=== PATIENT | female | born 1950 | race African-American/Black ===

== ENCOUNTER 2020-02-13 21:30 | Inpatient (IN) | payer MEDICARE, MEDICAID ==
[~2020-02-13] VITALS: Ht 162.6 cm; Wt 56.7 kg
[~2020-02-13 21:30] MED LIST: ASPIRIN81 MG ORAL; CALCIUM500 M3 PO; LIPITOR10 MG ORAL; VITAMIN C500 M1 ORAL; ZESTRIL10 MG ORAL
[2020-02-13 21:37] VITALS: BP 111/75
[2020-02-13] MEDS ORDERED: Solu-MEDROL 125mg Inj IVP ONE (21:45)
[2020-02-13] MEDS: Albuterol ud Inhalation HHN SCH ×2 (22:04→22:11)
[2020-02-13] MEDS: Ipratropium 0.02% Inh Soln 2.5ml UD HHN SCH ×2 (22:04→22:11)
[2020-02-13 22:14] LABS: HEMATOCRIT 42.4 % (37.0-47.0); HEMOGLOBIN 13.3 G/DL (12.0-16.0); MEAN CORPUSCULAR VOLUME 97 FL (80-99); PLATELET COUNT 166 K/UL (150-450); RED BLOOD COUNT 4.35 M/UL (4.20-5.40); RED CELL DISTRIBUTION WIDTH 14.4 % (11.6-14.8); WHITE BLOOD COUNT 7.9 K/UL (4.8-10.8)
[2020-02-13 22:16] LABS: ANION GAP 17 mmol/L (5-15); BLOOD UREA NITROGEN 13 mg/dL (7-18); CARBON DIOXIDE 21 MMOL/L (21-32); CHLORIDE 106 MMOL/L (98-107); CREATININE 1.3 MG/DL (0.55-1.30); POTASSIUM 3.7 MMOL/L (3.5-5.1); SODIUM 144 MMOL/L (136-145)
[2020-02-13 22:29] LABS: ALANINE AMINOTRANSFERASE 45 U/L (12-78); ALBUMIN 3.3 G/DL (3.4-5.0); ALBUMIN/GLOBULIN RATIO 0.9 (1.0-2.7); ALKALINE PHOSPHATASE 103 U/L (46-116); ASPARTATE AMINO TRANSFERASE 102 U/L (15-37); BILIRUBIN,TOTAL 0.2 MG/DL (0.2-1.0)
--- NOTE | 2020-02-13 22:54 | Diagnostic Imaging Report ---
EXAM: XR Chest, 1 View CLINICAL HISTORY: SOB TECHNIQUE: Frontal view of the chest. COMPARISON: No relevant prior studies available. FINDINGS: Study limited to single portable AP chest radiograph. At least mild cardiomegaly. There is tortuosity/ectasia of the thoracic aorta. Overlying artifact in the right costophrenic angle region. Negative for focal consolidation, pneumothorax or pleural fluid collections. Recommend upright PA and lateral views of the chest when clinically feasible.
[2020-02-13] MEDS ORDERED: cefTRIAXone 1 GM in NS 55 ML IVPB ONE (23:00)
[2020-02-13] MEDS ORDERED: Azithromycin 500 MG in NS 275 ML IV ONE (23:00)
[2020-02-13 23:29] LABS: BILIRUBIN, URINE NEGATIVE (NEGATIVE); GLUCOSE, URINE (UA) 2+ (NEGATIVE); KETONES,URINE NEGATIVE (NEGATIVE); NITRITE,URINE NEGATIVE (NEGATIVE); PH,URINE 6.5 (4.5-8.0); PROTEIN,URINE 2+ (NEGATIVE); UROBILINOGEN,URINE NORMAL MG/DL (0.0-1.0)
[2020-02-13 23:36] VITALS: BP 125/87
[2020-02-13 23:44] LABS: APPEARANCE,URINE SLIGHTLY CLOUDY; COLOR,URINE YELLOW; LEUKOCYTE ESTERASE ,URINE 1+ (NEGATIVE)
[2020-02-14] VITALS (7 sets, daily range): BP systolic 101–146; BP diastolic 58–97
--- NOTE | 2020-02-14 01:39 | Emergency Room Report ---
History of Present Illness General Chief Complaint: Dyspnea/Respdistress Source: Patient Present Illness HPI 69-year-old female presents ED for evaluation of respiratory distress. Brought in by EMS from home. Short of breath. Tripoding. Labored breathing. Started on CPAP. EMS stated that house smelled like smoke. Denies fevers or chills. Denies cough. Denies chest pain. Symptoms started today. No other aggravating relieving factors. Denies any other associated symptoms COVID-19 risk:Travel to affect: No Allergies: Coded Allergies: No Known Allergies (Unverified , 01/22/15) Patient History Past Medical History: none Past Surgical History: none Pertinent Family History: none Social History: Reports: smoking; Denies: alcohol use, drug use Now: No Immunizations: UTD Reviewed Nursing Documentation: PMH: Agreed; PSxH: Agreed Nursing Documentation-PMH Past Medical History: Deferred Hx Cardiac Problems: No Hx Cancer: No Hx Gastrointestinal Problems: No Hx Neurological Problems: No Review of Systems All Other Systems: negative except mentioned in HPI Physical Exam Vital Signs Date Time Temp Pulse Resp B/P (MAP) Pulse Ox O2 Delivery O2 Flow Rate FiO2 02/13/20 21:31 151 26 111/75 (87) 100 Bi-pap 15.0 02/13/20 21:37 98.0 02/13/20 22:37 35 Sp02 EP Interpretation: reviewed, normal General Appearance: alert, GCS 15, non-toxic, moderate distress Head: normocephalic, atraumatic Eyes: bilateral eye normal inspection, bilateral eye PERRL ENT: hearing grossly normal, normal pharynx, no angioedema, normal voice Neck: full range of motion, supple/symm/no masses Respiratory: chest non-tender, decreased breath sounds, speaking full sentences , wheezing Cardiovascular #1: no edema, tachycardia Cardiovascular #2: 2+ carotid (R), 2+ carotid (L), 2+ radial (R), 2+ radial (L) , 2+ dorsalis pedis (R), 2+ dorsalis pedis (L) Gastrointestinal: normal bowel sounds, non tender, soft, non-distended, no guarding, no rebound Rectal: deferred Genitourinary: normal inspection, no CVA tenderness Musculoskeletal: back normal, normal range of motion, gait/station normal, non- tender Neurologic: alert, motor strength/tone normal, oriented x3, sensory intact, responsive, speech normal Psychiatric: judgement/insight normal, memory normal, mood/affect normal, no suicidal/homicidal ideation Reflexes: 3+ bicep (R), 3+ bicep (L), 3+ tricep (R), 3+ tricep (L), 3+ knee (R) , 3+ knee (L) Skin: other - see nursing skin notes Lymphatic: no adenopathy Procedures Critical Care Time Critical Care Time i. I feel this is a highly complex case requiring extensive working including EKG/Rhythm strip, Xray/CT/US, Blood/urine lab work, repeat exams while in ED, and administration of strong opiates/narcotics for pain control, admission to hospital or close patient follow up. Total time: 60 min bedside evaluation and treatment excludes procedures (EKG). Reason for critical care: respiratory distress Possible complications: hypotension, hypertension, UT, shock, arrhythmias, metabolic acidosis, end organ damage, respiratory failure. Interventions: labs, EKG, CXR, IVFS, BIPAP, nebs, ABG, abx, aspirin Course: Patient brought in with shortness of breath. On CPAP. Reduced breath sounds and wheezing. Started on BiPAP with nebulizer treatments. ABG shows no significant hypercapnia or hypoxia. Lactic 8. No leukocytosis. No fever. Troponin indeterminate. Given 30 cc/kg fluid bolus. Given broad-spectrum antibiotics. Given aspirin. Tachycardia resolving. Consultations: nursing staff, EMS, family Performed by: Dr Howell Tolerated well condition = serious j. because of unstable vital signs this patient had a condition that could potentially threaten life or limb. I feel this is a critical patient who required my full attention while patient was considered critical. Total Critical Care Time excluding procedures was greater than 60 minutes Medical Decision Making Diagnostic Impression: Primary Impression: Respiratory distress Additional Impression: COPD exacerbation ER Course Hospital Course 69-year-old F presenting to ED with SOB. Differential diagnoses include: Pneumonia, CHF exacerbation, pneumothorax, fluid overload Clinical course Patient placed on stretcher. On compliance monitor with tachycardia. patient started on BIPAP. After initial history and physical, I ordered nebulizer treatments. I ordered labs, IV fluids, EKG, chest x-ray, blood cultures, UA. Labs - no leukocytosis noted, hemoglobin/hematocrit stable, electrolytes okay, lactate 8, trop 0.233, BNP elevted CXR - hyperinflated lungs. no infiltrates EKG - sinus tachycardia no acute ischemic changes interpreted by me ABG shows no significant hypercapnia or hypoxia or acidosis Given Solu-Medrol. Given 30 cc/kg fluid bolus. Given broad-spectrum antibiotics. Given aspirin. Case discussed with Dr. Musa (per Dr Swanson) and he agreed to the patient to his service for further care and support I feel this is a highly complex case requiring extensive working including EKG/ Rhythm strip, Xray/CT/US, Blood/urine lab work, repeat exams while in ED, and administration of strong opiates/narcotics for pain control, admission to hospital or close patient follow up. Diagnosis - COPD exacerbation, respiratory distress Patient admitted to SDU in serious condition Labs Test 02/13/20 21:30 02/13/20 21:40 02/13/20 22:56 02/13/20 23:01 Arterial Blood pH 7.297 (7.350-7.450) Arterial Blood Partial Pressure CO2 41.2 mmHg (35.0-45.0) Arterial Blood Partial Pressure O2 260.9 mmHg (75.0-100.0) Arterial Blood HCO3 19.7 mmol/L (22.0-26.0) Arterial Blood Oxygen Saturation 99.3 % (95-100) Arterial Blood Base Excess -6.4 (-2-2) Rishabh Test Positive White Blood Count 7.9 K/UL (4.8-10.8) Red Blood Count 4.35 M/UL (4.20-5.40) Hemoglobin 13.3 G/DL (12.0-16.0) Hematocrit 42.4 % (37.0-47.0) Mean Corpuscular Volume 97 FL (80-99) Mean Corpuscular Hemoglobin 30.5 PG (27.0-31.0) Mean Corpuscular Hemoglobin Concent 31.3 G/DL (32.0-36.0) Red Cell Distribution Width 14.4 % (11.6-14.8) Platelet Count 166 K/UL (150-450) Mean Platelet Volume 9.3 FL (6.5-10.1) Neutrophils (%) (Auto) % (45.0-75.0) Lymphocytes (%) (Auto) % (20.0-45.0) Monocytes (%) (Auto) % (1.0-10.0) Eosinophils (%) (Auto) % (0.0-3.0) Basophils (%) (Auto) % (0.0-2.0) Differential Total Cells Counted 100 Neutrophils % (Manual) 34 % (45-75) Lymphocytes % (Manual) 60 % (20-45) Monocytes % (Manual) 5 % (1-10) Eosinophils % (Manual) 1 % (0-3) Basophils % (Manual) 0 % (0-2) Band Neutrophils 0 % (0-8) Platelet Estimate Adequate Platelet Morphology Normal Anisocytosis 1+ Macrocytosis 1+ Sodium Level 144 MMOL/L (136-145) Potassium Level 3.7 MMOL/L (3.5-5.1) Chloride Level 106 MMOL/L (98-107) Carbon Dioxide Level 21 MMOL/L (21-32) Anion Gap 17 mmol/L (5-15) Blood Urea Nitrogen 13 mg/dL (7-18) Creatinine 1.3 MG/DL (0.55-1.30) Estimat Glomerular Filtration Rate 49.3 mL/min (>60) Glucose Level 404 MG/DL (74-106) Lactic Acid Level 8.00 mmol/L (0.4-2.0) 3.40 mmol/L (0.66-2.22) Calcium Level 9.0 MG/DL (8.5-10.1) Total Bilirubin 0.2 MG/DL (0.2-1.0) Aspartate Amino Transf (AST/SGOT) 102 U/L (15-37) Alanine Aminotransferase (ALT/SGPT) 45 U/L (12-78) Alkaline Phosphatase 103 U/L (46-116) Troponin I 0.233 ng/mL (0.000-0.056) Pro-B-Type Natriuretic Peptide 9097 pg/mL (0-125) Total Protein 7.0 G/DL (6.4-8.2) Albumin 3.3 G/DL (3.4-5.0) Globulin 3.7 g/dL Albumin/Globulin Ratio 0.9 (1.0-2.7) Urine Color Yellow Urine Appearance Slightly cloudy Urine pH 6.5 (4.5-8.0) Urine Specific [place] 1.015 (1.005-1.035) Urine Protein 2+ (NEGATIVE) Urine Glucose (UA) 2+ (NEGATIVE) Urine Ketones Negative (NEGATIVE) Urine Blood 1+ (NEGATIVE) Urine Nitrite Negative (NEGATIVE) Urine Bilirubin Negative (NEGATIVE) Urine Urobilinogen Normal MG/DL (0.0-1.0) Urine Leukocyte Esterase 1+ (NEGATIVE) Urine RBC 2-4 /HPF (0 - 2) Urine WBC 2-4 /HPF (0 - 2) Urine Squamous Epithelial Cells Moderate /LPF (NONE/OCC) Urine Bacteria Many /HPF (NONE) EKG Diagnostic Results Rate: tachycardiac Rhythm: NSR ST Segments: no acute changes ASA given to the pt in ED: Yes Rhythm Strip Diag. Results EP Interpretation: yes Rhythm: NSR, no PVC's, no ectopy Chest X-Ray Diagnostic Results Chest X-Ray Diagnostic Results : Chest X-Ray Ordered: Yes # of Views/Limited/Complete: 1 View Indication: Shortness of Breath EP Interpretation: Yes Interpretation: no consolidation, no effusion, no pneumothorax, no acute cardiopulmonary disease, other - cardiomegaly Impression: Other - hyperinflated lungs Electronically Signed by: Electronically signed by Fritz Howell MD Last Vital Signs Date Time Temp Pulse Resp B/P (MAP) Pulse Ox O2 Delivery O2 Flow Rate FiO2 02/13/20 22:37 89 25 100 35 02/13/20 21:37 98.0 111/75 Bi-pap 02/13/20 21:37 15.0 Status: improved Disposition: ADMITTED INPATIENT Condition: Serious Referrals: NON PHYSICIAN (PCP) Frizt Howell MD Feb 14, 2020 01:39
[2020-02-14] MEDS ORDERED: Azithromycin 500 MG in D5W 275 ML IVPB ONE (02:30)
[2020-02-14 06:31] LABS: HEMATOCRIT 41.2 % (37.0-47.0); HEMOGLOBIN 13.6 G/DL (12.0-16.0); MEAN CORPUSCULAR VOLUME 93 FL (80-99); PLATELET COUNT 145 K/UL (150-450); RED BLOOD COUNT 4.42 M/UL (4.20-5.40); WHITE BLOOD COUNT 8.6 K/UL (4.8-10.8)
[2020-02-14 06:55] LABS: ALANINE AMINOTRANSFERASE 48 U/L (12-78); ALBUMIN 3.2 G/DL (3.4-5.0); ALBUMIN/GLOBULIN RATIO 0.9 (1.0-2.7); ALKALINE PHOSPHATASE 85 U/L (46-116); ANION GAP 15 mmol/L (5-15); ASPARTATE AMINO TRANSFERASE 70 U/L (15-37); BILIRUBIN,TOTAL 0.3 MG/DL (0.2-1.0); BLOOD UREA NITROGEN 11 mg/dL (7-18); CALCIUM 8.3 MG/DL (8.5-10.1); CARBON DIOXIDE 20 MMOL/L (21-32); CHLORIDE 111 MMOL/L (98-107); CREATININE 0.8 MG/DL (0.55-1.30); POTASSIUM 4.2 MMOL/L (3.5-5.1); SODIUM 146 MMOL/L (136-145)
[2020-02-14] MEDS ORDERED: Heparin 5000 units/ml inj SUBQ SCH (09:00)
[2020-02-14] MEDS: Ascorbic Acid 500mg tab ORAL SCH (09:13)
[2020-02-14] MEDS: Aspirin Baby 81mg ORAL SCH (09:13)
[2020-02-14] MEDS: Lisinopril 10mg tab ORAL SCH (09:13)
--- NOTE | 2020-02-14 11:37 | Consultation ---
History of Present Illness General Chief Complaint: Dyspnea/Respdistress Present Illness HPI 69 year old female, current smoker (since age 16), no prior hx of lung disease, has hx of HTN, presenting with 1 day of acute SOB, wheezing that ocurred last night. denies any sick contacts, fever, chills, chest pain, n/v, abdominal pain. denies any prior similar episodes. reports she is "cutting down", now smoking 3-5 cigs per day only. Allergies: Coded Allergies: No Known Allergies (Unverified , 01/22/15) Medication History Scheduled Ascorbic Acid* (Vitamin C*), 500 MG ORAL DAILY, (Reported) Aspirin* (Aspirin*), 81 MG ORAL DAILY Atorvastatin Calcium* (Lipitor*), 10 MG ORAL BEDTIME Calcium Carbonate (Calcium), 1,500 MG PO DAILY, (Reported) Lisinopril* (Zestril*), 10 MG ORAL DAILY Patient History Healthcare decision maker Resuscitation status Full Code Advanced Directive on File Physical Exam General Appearance: WD/WN, no apparent distress HEENT: normocephalic, atraumatic Neck: non-tender Respiratory/Chest: expiratory wheezing Cardiovascular/Chest: normal peripheral pulses, normal rate, regular rhythm Abdomen: non tender, soft, no organomegaly Neurologic: alert, oriented x 3 Last 24 Hour Vital Signs Date Time Temp Pulse Resp B/P (MAP) Pulse Ox O2 Delivery O2 Flow Rate FiO2 02/14/20 09:13 134/84 02/14/20 08:00 98.0 100 21 134/84 (101) 98 02/14/20 08:00 35 02/14/20 08:00 Nasal Cannula 2.0 02/14/20 07:42 99 02/14/20 07:15 99 02/14/20 07:05 99 Nasal Cannula 2.0 28 02/14/20 04:48 71 27 100 30 02/14/20 04:00 97.8 110 20 111/83 (92) 99 02/14/20 04:00 100 02/14/20 04:00 35 02/14/20 02:58 74 18 99 35 02/14/20 01:57 62 16 100 30 02/14/20 01:54 97.2 113 20 146/97 (113) 99 02/14/20 01:40 Bi-Pap 15.0 02/14/20 01:35 97.6 98 23 136/77 97 Bi-pap 35 02/14/20 01:35 97.6 98 23 136/77 97 Bi-pap 15.0 35 02/13/20 23:36 97.9 105 26 125/87 99 Bi-pap 35 02/13/20 22:37 89 25 100 35 02/13/20 21:37 98.0 151 26 111/75 100 Bi-pap 02/13/20 21:37 151 26 Bi-pap 15.0 02/13/20 21:31 151 26 111/75 (87) 100 Bi-pap 15.0 Intake and Output 02/13/20 02/14/20 19:00 07:00 Intake Total 4810 ml Output Total 200 ml Balance 4610 ml Intake Oral 150 ml IV Total 4660 ml Output Urine Total 200 ml # Voids 2 # Bowel Movements 1 Laboratory Tests Test 02/13/20 21:30 02/13/20 21:40 02/13/20 22:56 02/13/20 23:01 Arterial Blood pH 7.297 (7.350-7.450) Arterial Blood Partial Pressure CO2 41.2 mmHg (35.0-45.0) Arterial Blood Partial Pressure O2 260.9 mmHg (75.0-100.0) H Arterial Blood HCO3 19.7 mmol/L (22.0-26.0) L Arterial Blood Oxygen Saturation 99.3 % (95-100) Arterial Blood Base Excess -6.4 (-2-2) L Rishabh Test Positive White Blood Count 7.9 K/UL (4.8-10.8) Red Blood Count 4.35 M/UL (4.20-5.40) Hemoglobin 13.3 G/DL (12.0-16.0) Hematocrit 42.4 % (37.0-47.0) Mean Corpuscular Volume 97 FL (80-99) Mean Corpuscular Hemoglobin 30.5 PG (27.0-31.0) Mean Corpuscular Hemoglobin Concent 31.3 G/DL (32.0-36.0) L Red Cell Distribution Width 14.4 % (11.6-14.8) Platelet Count 166 K/UL (150-450) Mean Platelet Volume 9.3 FL (6.5-10.1) Neutrophils (%) (Auto) % (45.0-75.0) Lymphocytes (%) (Auto) % (20.0-45.0) Monocytes (%) (Auto) % (1.0-10.0) Eosinophils (%) (Auto) % (0.0-3.0) Basophils (%) (Auto) % (0.0-2.0) Differential Total Cells Counted 100 Neutrophils % (Manual) 34 % (45-75) L Lymphocytes % (Manual) 60 % (20-45) H Monocytes % (Manual) 5 % (1-10) Eosinophils % (Manual) 1 % (0-3) Basophils % (Manual) 0 % (0-2) Band Neutrophils 0 % (0-8) Platelet Estimate Adequate Platelet Morphology Normal Anisocytosis 1+ Macrocytosis 1+ Sodium Level 144 MMOL/L (136-145) Potassium Level 3.7 MMOL/L (3.5-5.1) Chloride Level 106 MMOL/L (98-107) Carbon Dioxide Level 21 MMOL/L (21-32) Anion Gap 17 mmol/L (5-15) H Blood Urea Nitrogen 13 mg/dL (7-18) Creatinine 1.3 MG/DL (0.55-1.30) Estimat Glomerular Filtration Rate 49.3 mL/min (>60) Glucose Level 404 MG/DL (74-106) H Lactic Acid Level 8.00 mmol/L (0.4-2.0) H 3.40 mmol/L (0.66-2.22) H Calcium Level 9.0 MG/DL (8.5-10.1) Total Bilirubin 0.2 MG/DL (0.2-1.0) Aspartate Amino Transf (AST/SGOT) 102 U/L (15-37) H Alanine Aminotransferase (ALT/SGPT) 45 U/L (12-78) Alkaline Phosphatase 103 U/L (46-116) Troponin I 0.233 ng/mL (0.000-0.056) Pro-B-Type Natriuretic Peptide 9097 pg/mL (0-125) H Total Protein 7.0 G/DL (6.4-8.2) Albumin 3.3 G/DL (3.4-5.0) L Globulin 3.7 g/dL Albumin/Globulin Ratio 0.9 (1.0-2.7) L Urine Color Yellow Urine Appearance Slightly cloudy Urine pH 6.5 (4.5-8.0) Urine Specific [place] 1.015 (1.005-1.035) Urine Protein 2+ (NEGATIVE) H Urine Glucose (UA) 2+ (NEGATIVE) H Urine Ketones Negative (NEGATIVE) Urine Blood 1+ (NEGATIVE) H Urine Nitrite Negative (NEGATIVE) Urine Bilirubin Negative (NEGATIVE) Urine Urobilinogen Normal MG/DL (0.0-1.0) Urine Leukocyte Esterase 1+ (NEGATIVE) H Urine RBC 2-4 /HPF (0 - 2) H Urine WBC 2-4 /HPF (0 - 2) Urine Squamous Epithelial Cells Moderate /LPF (NONE/OCC) H Urine Bacteria Many /HPF (NONE) H Test 02/14/20 04:40 White Blood Count 8.6 K/UL (4.8-10.8) Red Blood Count 4.42 M/UL (4.20-5.40) Hemoglobin 13.6 G/DL (12.0-16.0) Hematocrit 41.2 % (37.0-47.0) Mean Corpuscular Volume 93 FL (80-99) Mean Corpuscular Hemoglobin 30.9 PG (27.0-31.0) Mean Corpuscular Hemoglobin Concent 33.1 G/DL (32.0-36.0) Red Cell Distribution Width 13.0 % (11.6-14.8) Platelet Count 145 K/UL (150-450) L Mean Platelet Volume 7.4 FL (6.5-10.1) Neutrophils (%) (Auto) % (45.0-75.0) Lymphocytes (%) (Auto) % (20.0-45.0) Monocytes (%) (Auto) % (1.0-10.0) Eosinophils (%) (Auto) % (0.0-3.0) Basophils (%) (Auto) % (0.0-2.0) Differential Total Cells Counted 100 Neutrophils % (Manual) 83 % (45-75) H Lymphocytes % (Manual) 16 % (20-45) L Monocytes % (Manual) 1 % (1-10) Eosinophils % (Manual) 0 % (0-3) Basophils % (Manual) 0 % (0-2) Band Neutrophils 0 % (0-8) Platelet Estimate Decreased L Platelet Morphology Normal Red Blood Cell Morphology Normal Sodium Level 146 MMOL/L (136-145) H Potassium Level 4.2 MMOL/L (3.5-5.1) Chloride Level 111 MMOL/L (98-107) H Carbon Dioxide Level 20 MMOL/L (21-32) L Anion Gap 15 mmol/L (5-15) Blood Urea Nitrogen 11 mg/dL (7-18) Creatinine 0.8 MG/DL (0.55-1.30) Estimat Glomerular Filtration Rate > 60 mL/min (>60) Glucose Level 170 MG/DL (74-106) #H Calcium Level 8.3 MG/DL (8.5-10.1) L Total Bilirubin 0.3 MG/DL (0.2-1.0) Aspartate Amino Transf (AST/SGOT) 70 U/L (15-37) H Alanine Aminotransferase (ALT/SGPT) 48 U/L (12-78) Alkaline Phosphatase 85 U/L (46-116) Troponin I 1.086 ng/mL (0.000-0.056) Total Protein 6.9 G/DL (6.4-8.2) Albumin 3.2 G/DL (3.4-5.0) L Globulin 3.7 g/dL Albumin/Globulin Ratio 0.9 (1.0-2.7) L Microbiology Date/Time Source Procedure Growth Status 02/13/20 22:10 Nasal Nares - Final Complete 02/13/20 22:10 Nasal Nares - Final Complete Height (Feet): 5 Height (Inches): 4.00 Weight (Pounds): 110 Medications Current Medications Medications (Trade) Dose Ordered Sig/[place] Route PRN Reason Start Time Stop Time Status Last Admin Dose Admin Ascorbic Acid (Vitamin C) 500 mg DAILY ORAL 02/14/20 09:00 03/15/20 08:59 02/14/20 09:13 Aspirin (ASA) 81 mg DAILY ORAL 02/14/20 09:00 03/30/20 08:59 02/14/20 09:13 Atorvastatin Calcium (Lipitor) 10 mg BEDTIME ORAL 02/14/20 21:00 03/15/20 20:59 Azithromycin 250 mg/Dextrose 275 ml @ 275 mls/hr Q24HRS IV 02/14/20 23:00 02/15/20 23:59 Heparin Sodium (Porcine) (Heparin 5000 units/ml) 5,000 units EVERY 12 HOURS SUBQ 02/14/20 09:00 03/30/20 08:59 02/14/20 09:15 Lisinopril (ZestriL) 10 mg DAILY ORAL 02/14/20 09:00 03/15/20 08:59 02/14/20 09:13 Prednisone (predniSONE) 40 mg DAILY ORAL 02/14/20 09:00 02/18/20 09:01 02/14/20 09:13 Assessment/Plan Diagnosis [place]: #Hypernatremia #Sepsis #lactic acidosis #Pneumonia/COPD exacerbation #Tropnemia #hyperglycemia - admit to tele - pulm consulted - ID consulted - Bipap prn - abx - steroid - heparin drip - trend trop - cardiology consult - 1/2NS at 75cc - monitor BMP - trend lactic acid - IVF as above Michael Swanson M.D. Feb 14, 2020 11:37
[2020-02-14] MEDS ORDERED: Heparin 5000 units/ml inj IV SCH (12:15)
[2020-02-14] MEDS ORDERED: Heparin 25,000u/D5W 500ml 500 ML IV SCH (12:30)
--- NOTE | 2020-02-14 12:41 | Consultation ---
History of Present Illness General Date patient seen: Feb 14, 2020 Reason for Hospitalization: Dyspnea/Respdistress Present Illness HPI This is a very pleasant 69-year-old female who presented to [facility] complaining of shortness of breath, respiratory symptoms, abdominal discomfort, dysphasia. She was admitted for further care and management. Identified to have a significant lactic acidosis and giving abdominal discomfort and some dysphasia surgery was called to evaluate for possible intra- abdominal etiology. Patient seen, patient evaluated, chart reviewed. Patient states overall she does not feel well and is fatigued. States that when she swallows she feels it in her chest as discomfort. States her abdominal discomfort is just cramping in nature 4 out of 10 intermittent nausea no emesis no radiation. Passing flatus normal BM recently Allergies: Coded Allergies: No Known Allergies (Unverified , 01/22/15) Medication History Scheduled Ascorbic Acid* (Vitamin C*), 500 MG ORAL DAILY, (Reported) Aspirin* (Aspirin*), 81 MG ORAL DAILY Atorvastatin Calcium* (Lipitor*), 10 MG ORAL BEDTIME Calcium Carbonate (Calcium), 1,500 MG PO DAILY, (Reported) Lisinopril* (Zestril*), 10 MG ORAL DAILY Patient History History Provided By: Patient Healthcare decision maker Resuscitation status Full Code Advanced Directive on File Past Medical/Surgical History Past Medical/Surgical History: (1) Stroke-like episode (2) CVA (cerebral infarction) (3) TIA (transient ischemic attack) (4) CVA (cerebral infarction) (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 (7) SOB (shortness of breath) (8) COPD exacerbation (9) Respiratory distress Review of Systems Review of Symptoms General ROS: no weight loss or fever Psychological ROS: no depression or mood changes, no memory loss Ophthalmic ROS: no visual changes or eye irritation ENT ROS: no nasal congestion, hearing loss, dizziness Allergy and Immunology ROS: no allergic symptoms or urticaria Hematological and Lymphatic ROS: no swollen glands, unusual bleeding or bruising Endocrine ROS: no polyuria, polydipsia, weight changes, temperature intolerance Respiratory ROS: no cough, shortness of breath, or wheezing Cardiovascular ROS: no chest pain or dyspnea on exertion Gastrointestinal ROS: abdominal pain, no bright red blood in stool. Musculoskeletal ROS: no myalgias or arthralgias Neurological ROS: no TIA or stroke symptoms Dermatological ROS: no new or changing skin lesions, rashes or pruritis Physical Exam Physical Exam General appearance: alert, cooperative, no distress, appears stated age Head: Normocephalic, without obvious abnormality, atraumatic Eyes: conjunctivae/corneas clear. PERRL, EOM's intact. Fundi benign Throat: Lips, mucosa, and tongue normal. Teeth and gums normal Neck: supple, symmetrical, trachea midline, no adenopathy, thyroid: not enlarged, symmetric, no tenderness/mass/nodules, no carotid bruit and no JVD Lungs: clear to auscultation bilaterally Heart: regular rate and rhythm, S1, S2 normal, no murmur, click, rub or gallop Abdomen: soft, non-tender but does still feel some discomfort with the palpation no peritonitis. Bowel sounds normal. No masses, no organomegaly Extremities: extremities normal, atraumatic, no cyanosis or edema Pulses: 2+ and symmetric Skin: Skin color, texture, turgor normal. No rashes or lesions Neurologic: Grossly normal Last 24 Hour Vital Signs Date Time Temp Pulse Resp B/P (MAP) Pulse Ox O2 Delivery O2 Flow Rate FiO2 02/14/20 09:13 134/84 02/14/20 08:00 98.0 100 21 134/84 (101) 98 02/14/20 08:00 35 02/14/20 08:00 Nasal Cannula 2.0 02/14/20 07:42 99 02/14/20 07:15 99 02/14/20 07:05 99 Nasal Cannula 2.0 28 02/14/20 04:48 71 27 100 30 02/14/20 04:00 97.8 110 20 111/83 (92) 99 02/14/20 04:00 100 02/14/20 04:00 35 02/14/20 02:58 74 18 99 35 02/14/20 01:57 62 16 100 30 02/14/20 01:54 97.2 113 20 146/97 (113) 99 02/14/20 01:40 Bi-Pap 15.0 02/14/20 01:35 97.6 98 23 136/77 97 Bi-pap 35 02/14/20 01:35 97.6 98 23 136/77 97 Bi-pap 15.0 35 02/13/20 23:36 97.9 105 26 125/87 99 Bi-pap 35 02/13/20 22:37 89 25 100 35 02/13/20 21:37 98.0 151 26 111/75 100 Bi-pap 02/13/20 21:37 151 26 Bi-pap 15.0 02/13/20 21:31 151 26 111/75 (87) 100 Bi-pap 15.0 Intake and Output 02/13/20 02/14/20 19:00 07:00 Intake Total 4810 ml Output Total 200 ml Balance 4610 ml Intake Oral 150 ml IV Total 4660 ml Output Urine Total 200 ml # Voids 2 # Bowel Movements 1 Laboratory Tests Test 02/13/20 21:30 02/13/20 21:40 02/13/20 22:56 02/13/20 23:01 Arterial Blood pH 7.297 (7.350-7.450) Arterial Blood Partial Pressure CO2 41.2 mmHg (35.0-45.0) Arterial Blood Partial Pressure O2 260.9 mmHg (75.0-100.0) H Arterial Blood HCO3 19.7 mmol/L (22.0-26.0) L Arterial Blood Oxygen Saturation 99.3 % (95-100) Arterial Blood Base Excess -6.4 (-2-2) L Rishabh Test Positive White Blood Count 7.9 K/UL (4.8-10.8) Red Blood Count 4.35 M/UL (4.20-5.40) Hemoglobin 13.3 G/DL (12.0-16.0) Hematocrit 42.4 % (37.0-47.0) Mean Corpuscular Volume 97 FL (80-99) Mean Corpuscular Hemoglobin 30.5 PG (27.0-31.0) Mean Corpuscular Hemoglobin Concent 31.3 G/DL (32.0-36.0) L Red Cell Distribution Width 14.4 % (11.6-14.8) Platelet Count 166 K/UL (150-450) Mean Platelet Volume 9.3 FL (6.5-10.1) Neutrophils (%) (Auto) % (45.0-75.0) Lymphocytes (%) (Auto) % (20.0-45.0) Monocytes (%) (Auto) % (1.0-10.0) Eosinophils (%) (Auto) % (0.0-3.0) Basophils (%) (Auto) % (0.0-2.0) Differential Total Cells Counted 100 Neutrophils % (Manual) 34 % (45-75) L Lymphocytes % (Manual) 60 % (20-45) H Monocytes % (Manual) 5 % (1-10) Eosinophils % (Manual) 1 % (0-3) Basophils % (Manual) 0 % (0-2) Band Neutrophils 0 % (0-8) Platelet Estimate Adequate Platelet Morphology Normal Anisocytosis 1+ Macrocytosis 1+ Sodium Level 144 MMOL/L (136-145) Potassium Level 3.7 MMOL/L (3.5-5.1) Chloride Level 106 MMOL/L (98-107) Carbon Dioxide Level 21 MMOL/L (21-32) Anion Gap 17 mmol/L (5-15) H Blood Urea Nitrogen 13 mg/dL (7-18) Creatinine 1.3 MG/DL (0.55-1.30) Estimat Glomerular Filtration Rate 49.3 mL/min (>60) Glucose Level 404 MG/DL (74-106) H Lactic Acid Level 8.00 mmol/L (0.4-2.0) H 3.40 mmol/L (0.66-2.22) H Calcium Level 9.0 MG/DL (8.5-10.1) Total Bilirubin 0.2 MG/DL (0.2-1.0) Aspartate Amino Transf (AST/SGOT) 102 U/L (15-37) H Alanine Aminotransferase (ALT/SGPT) 45 U/L (12-78) Alkaline Phosphatase 103 U/L (46-116) Troponin I 0.233 ng/mL (0.000-0.056) Pro-B-Type Natriuretic Peptide 9097 pg/mL (0-125) H Total Protein 7.0 G/DL (6.4-8.2) Albumin 3.3 G/DL (3.4-5.0) L Globulin 3.7 g/dL Albumin/Globulin Ratio 0.9 (1.0-2.7) L Urine Color Yellow Urine Appearance Slightly cloudy Urine pH 6.5 (4.5-8.0) Urine Specific [place] 1.015 (1.005-1.035) Urine Protein 2+ (NEGATIVE) H Urine Glucose (UA) 2+ (NEGATIVE) H Urine Ketones Negative (NEGATIVE) Urine Blood 1+ (NEGATIVE) H Urine Nitrite Negative (NEGATIVE) Urine Bilirubin Negative (NEGATIVE) Urine Urobilinogen Normal MG/DL (0.0-1.0) Urine Leukocyte Esterase 1+ (NEGATIVE) H Urine RBC 2-4 /HPF (0 - 2) H Urine WBC 2-4 /HPF (0 - 2) Urine Squamous Epithelial Cells Moderate /LPF (NONE/OCC) H Urine Bacteria Many /HPF (NONE) H Test 02/14/20 04:40 02/14/20 12:00 White Blood Count 8.6 K/UL (4.8-10.8) Red Blood Count 4.42 M/UL (4.20-5.40) Hemoglobin 13.6 G/DL (12.0-16.0) Hematocrit 41.2 % (37.0-47.0) Mean Corpuscular Volume 93 FL (80-99) Mean Corpuscular Hemoglobin 30.9 PG (27.0-31.0) Mean Corpuscular Hemoglobin Concent 33.1 G/DL (32.0-36.0) Red Cell Distribution Width 13.0 % (11.6-14.8) Platelet Count 145 K/UL (150-450) L Mean Platelet Volume 7.4 FL (6.5-10.1) Neutrophils (%) (Auto) % (45.0-75.0) Lymphocytes (%) (Auto) % (20.0-45.0) Monocytes (%) (Auto) % (1.0-10.0) Eosinophils (%) (Auto) % (0.0-3.0) Basophils (%) (Auto) % (0.0-2.0) Differential Total Cells Counted 100 Neutrophils % (Manual) 83 % (45-75) H Lymphocytes % (Manual) 16 % (20-45) L Monocytes % (Manual) 1 % (1-10) Eosinophils % (Manual) 0 % (0-3) Basophils % (Manual) 0 % (0-2) Band Neutrophils 0 % (0-8) Platelet Estimate Decreased L Platelet Morphology Normal Red Blood Cell Morphology Normal Sodium Level 146 MMOL/L (136-145) H Potassium Level 4.2 MMOL/L (3.5-5.1) Chloride Level 111 MMOL/L (98-107) H Carbon Dioxide Level 20 MMOL/L (21-32) L Anion Gap 15 mmol/L (5-15) Blood Urea Nitrogen 11 mg/dL (7-18) Creatinine 0.8 MG/DL (0.55-1.30) Estimat Glomerular Filtration Rate > 60 mL/min (>60) Glucose Level 170 MG/DL (74-106) #H Calcium Level 8.3 MG/DL (8.5-10.1) L Total Bilirubin 0.3 MG/DL (0.2-1.0) Aspartate Amino Transf (AST/SGOT) 70 U/L (15-37) H Alanine Aminotransferase (ALT/SGPT) 48 U/L (12-78) Alkaline Phosphatase 85 U/L (46-116) Troponin I 1.086 ng/mL (0.000-0.056) Pending Total Protein 6.9 G/DL (6.4-8.2) Albumin 3.2 G/DL (3.4-5.0) L Globulin 3.7 g/dL Albumin/Globulin Ratio 0.9 (1.0-2.7) L Microbiology Date/Time Source Procedure Growth Status 02/13/20 22:10 Nasal Nares - Final Complete 02/13/20 22:10 Nasal Nares - Final Complete Height (Feet): 5 Height (Inches): 4.00 Weight (Pounds): 110 Medications Current Medications Medications (Trade) Dose Ordered Sig/Samanta Route PRN Reason Start Time Stop Time Status Last Admin Dose Admin Ascorbic Acid (Vitamin C) 500 mg DAILY ORAL 02/14/20 09:00 03/15/20 08:59 02/14/20 09:13 Aspirin (ASA) 81 mg DAILY ORAL 02/14/20 09:00 03/30/20 08:59 02/14/20 09:13 Atorvastatin Calcium (Lipitor) 10 mg BEDTIME ORAL 02/14/20 21:00 03/15/20 20:59 Azithromycin 250 mg/Dextrose 275 ml @ 275 mls/hr Q24HRS IV 02/14/20 23:00 02/15/20 23:59 Heparin Sodium (Porcine) (Heparin 5000 units/ml) 3,000 units ONCE IV 02/14/20 12:15 02/14/20 14:00 Heparin Sodium/ Dextrose 500 ml @ 11.975 mls/ hr ADJUST PER PROTOCOL IV 02/14/20 12:30 03/15/20 12:29 Lisinopril (ZestriL) 10 mg DAILY ORAL 02/14/20 09:00 03/15/20 08:59 02/14/20 09:13 Prednisone (predniSONE) 40 mg DAILY ORAL 02/14/20 09:00 02/18/20 09:01 02/14/20 09:13 Sodium Chloride 1,000 ml @ 75 mls/hr [id number] IV 02/14/20 11:45 03/15/20 11:44 Assessment/Plan Problem List: (1) Lactic acidosis Assessment & Plan: Lactic acidosis secondary to likely dehydration as patient has not been taking much oral intake as she feels discomfort in her chest and throat as she eats. States she is feeling little bit better now unable to take in a little bit more liquids. Currently no nausea vomiting fever chills. Passing flatus. Bowel movement. IV hydration. Unlikely ischemic bowel given examination. Hold on imaging. ICD Codes: E87.2 - Acidosis SNOMED: 26284820 (2) Abdominal pain Assessment & Plan: Patient with abdominal discomfort and severe lactic acidosis concerning for possible bowel etiology. On examination abdomen soft nontender nondistended mild discomfort with deep palpation but unlikely to have low flow. Okay for diet. Will follow with exam. Trend labs. ICD Codes: R10.9 - Unspecified abdominal pain SNOMED: 61325858 (3) Dysphasia Assessment & Plan: Patient states discomfort with eating feels it in the throat and chest. States resolving and improved with liquids at this time. Continue with diet. Monitor closely ICD Codes: R47.02 - Dysphasia SNOMED: 93609329 (4) Respiratory distress Assessment & Plan: Study limited to single portable AP chest radiograph. At least mild cardiomegaly. There is tortuosity/ectasia of the thoracic aorta. Overlying artifact in the right costophrenic angle region. Negative for focal consolidation, pneumothorax or pleural fluid collections. Recommend upright PA and lateral views of the chest when clinically feasible. ICD Codes: R06.03 - Acute respiratory distress SNOMED: 925163358 Aftab Elmore Feb 14, 2020 12:40
[2020-02-14 12:58] LABS: HEMATOCRIT 40.2 % (37.0-47.0); HEMOGLOBIN 13.3 G/DL (12.0-16.0); MEAN CORPUSCULAR VOLUME 92 FL (80-99); PLATELET COUNT 152 K/UL (150-450); RED BLOOD COUNT 4.35 M/UL (4.20-5.40); RED CELL DISTRIBUTION WIDTH 13.7 % (11.6-14.8); WHITE BLOOD COUNT 7.5 K/UL (4.8-10.8)
[2020-02-14 13:55] LABS: ANION GAP 16 mmol/L (5-15); BLOOD UREA NITROGEN 11 mg/dL (7-18); CALCIUM 8.9 MG/DL (8.5-10.1); CARBON DIOXIDE 22 MMOL/L (21-32); CHLORIDE 109 MMOL/L (98-107); CREATININE 0.8 MG/DL (0.55-1.30); POTASSIUM 4.8 MMOL/L (3.5-5.1); SODIUM 147 MMOL/L (136-145)
[2020-02-14] MEDS ORDERED: cefTRIAXone 1 GM in D5W 50 ML IVPB SCH (16:15)
--- NOTE | 2020-02-14 16:16 | History and Physical ---
History of Present Illness General Date patient seen: Feb 14, 2020 Reason for Hospitalization: COPD exacerbation Present Illness HPI 69 year old female, current smoker (since age 16), no prior hx of lung disease, has hx of HTN, presenting with 1 day of acute SOB, wheezing that ocurred last night. denies any sick contacts, fever, chills, chest pain, n/v, abdominal pain. denies any prior similar episodes. reports she is "cutting down", now smoking 3-5 cigs per day only. Allergies: Coded Allergies: No Known Allergies (Unverified , 01/22/15) Medication History Scheduled Ascorbic Acid* (Vitamin C*), 500 MG ORAL DAILY, (Reported) Aspirin* (Aspirin*), 81 MG ORAL DAILY Atorvastatin Calcium* (Lipitor*), 10 MG ORAL BEDTIME Calcium Carbonate (Calcium), 1,500 MG PO DAILY, (Reported) Lisinopril* (Zestril*), 10 MG ORAL DAILY Patient History Healthcare decision maker Resuscitation status Full Code Advanced Directive on File Review of Systems Constitutional: Denies: no symptoms, see HPI, chills, sweats, fever, malaise, weakness, other Eye: Denies: no symptoms, see HPI, eye pain, blurred vision, tearing, double vision, nose pain, nose congestion, acuity changes, discharge, other ENT: Denies: no symptoms, see HPI, ear pain, ear discharge, nose pain, nose congestion, throat pain, throat swelling, mouth pain, hearing loss, nasal discharge, other Respiratory: Reports: cough, shortness of breath, wheezing Cardiovascular: Denies: no symptoms, see HPI, chest pain, edema, palpitations, syncope, PND, other Gastrointestinal: Denies: no symptoms, see HPI, abdominal pain, constipation, diarrhea, nausea, vomiting, melena, hematemesis, other Genitourinary: Denies: no symptoms, see HPI, discharge, dysuria, frequency, hematuria, pain, retention, incontinence, urgency, vag bleed/dc, other Musculoskeletal: Denies: no symptoms, see HPI, back pain, gout, joint pain, joint swelling, muscle pain, muscle stiffness, other Skin: Denies: no symptoms, see HPI, rash, change in color, change in hair/nails , dryness, lesions, other Psychiatric: Denies: no symptoms, see HPI, prior hx, anxiety, depressed feelings, emotional problems, SI, HI, hallucinations, other Neurological: Denies: no symptoms, see HPI, headache, numbness, paresthesia, seizure, tingling, tremors, focal weakness, syncope, dizziness, other Endocrine: Denies: no symptoms, see HPI, excessive sweating, flushing, intolerance to temperature, increased thirst, increased urine, unexplained weight loss, other Hematologic/Lymphatic: Denies: no symptoms, see HPI, anemia, blood clots, easy bleeding, easy bruising, swollen glands, diathesis, other Physical Exam General Appearance: no apparent distress, alert HEENT: normocephalic, atraumatic Neck: supple Respiratory/Chest: lungs clear, normal breath sounds, no respiratory distress Cardiovascular/Chest: normal rate, regular rhythm Abdomen: non tender, soft Neurologic: alert, oriented x 3 Last 24 Hour Vital Signs Date Time Temp Pulse Resp B/P (MAP) Pulse Ox O2 Delivery O2 Flow Rate FiO2 02/14/20 12:00 98.0 105 22 106/79 (88) 100 02/14/20 12:00 Nasal Cannula 2.0 02/14/20 12:00 2.0 02/14/20 11:43 105 02/14/20 09:13 134/84 02/14/20 08:00 98.0 100 21 134/84 (101) 98 02/14/20 08:00 35 02/14/20 08:00 Nasal Cannula 2.0 02/14/20 07:42 99 02/14/20 07:15 99 02/14/20 07:05 99 Nasal Cannula 2.0 28 02/14/20 04:48 71 27 100 30 02/14/20 04:00 97.8 110 20 111/83 (92) 99 02/14/20 04:00 100 02/14/20 04:00 35 02/14/20 02:58 74 18 99 35 02/14/20 01:57 62 16 100 30 02/14/20 01:54 97.2 113 20 146/97 (113) 99 02/14/20 01:40 Bi-Pap 15.0 02/14/20 01:35 97.6 98 23 136/77 97 Bi-pap 35 02/14/20 01:35 97.6 98 23 136/77 97 Bi-pap 15.0 35 02/13/20 23:36 97.9 105 26 125/87 99 Bi-pap 35 02/13/20 22:37 89 25 100 35 02/13/20 21:37 98.0 151 26 111/75 100 Bi-pap 02/13/20 21:37 151 26 Bi-pap 15.0 02/13/20 21:31 151 26 111/75 (87) 100 Bi-pap 15.0 Intake and Output 02/13/20 02/14/20 19:00 07:00 Intake Total 4810 ml Output Total 200 ml Balance 4610 ml Intake Oral 150 ml IV Total 4660 ml Output Urine Total 200 ml # Voids 2 # Bowel Movements 1 Laboratory Tests Test 02/13/20 21:30 02/13/20 21:40 02/13/20 22:56 02/13/20 23:01 Arterial Blood pH 7.297 (7.350-7.450) Arterial Blood Partial Pressure CO2 41.2 mmHg (35.0-45.0) Arterial Blood Partial Pressure O2 260.9 mmHg (75.0-100.0) H Arterial Blood HCO3 19.7 mmol/L (22.0-26.0) L Arterial Blood Oxygen Saturation 99.3 % (95-100) Arterial Blood Base Excess -6.4 (-2-2) L Rishabh Test Positive White Blood Count 7.9 K/UL (4.8-10.8) Red Blood Count 4.35 M/UL (4.20-5.40) Hemoglobin 13.3 G/DL (12.0-16.0) Hematocrit 42.4 % (37.0-47.0) Mean Corpuscular Volume 97 FL (80-99) Mean Corpuscular Hemoglobin 30.5 PG (27.0-31.0) Mean Corpuscular Hemoglobin Concent 31.3 G/DL (32.0-36.0) L Red Cell Distribution Width 14.4 % (11.6-14.8) Platelet Count 166 K/UL (150-450) Mean Platelet Volume 9.3 FL (6.5-10.1) Neutrophils (%) (Auto) % (45.0-75.0) Lymphocytes (%) (Auto) % (20.0-45.0) Monocytes (%) (Auto) % (1.0-10.0) Eosinophils (%) (Auto) % (0.0-3.0) Basophils (%) (Auto) % (0.0-2.0) Differential Total Cells Counted 100 Neutrophils % (Manual) 34 % (45-75) L Lymphocytes % (Manual) 60 % (20-45) H Monocytes % (Manual) 5 % (1-10) Eosinophils % (Manual) 1 % (0-3) Basophils % (Manual) 0 % (0-2) Band Neutrophils 0 % (0-8) Platelet Estimate Adequate Platelet Morphology Normal Anisocytosis 1+ Macrocytosis 1+ Sodium Level 144 MMOL/L (136-145) Potassium Level 3.7 MMOL/L (3.5-5.1) Chloride Level 106 MMOL/L (98-107) Carbon Dioxide Level 21 MMOL/L (21-32) Anion Gap 17 mmol/L (5-15) H Blood Urea Nitrogen 13 mg/dL (7-18) Creatinine 1.3 MG/DL (0.55-1.30) Estimat Glomerular Filtration Rate 49.3 mL/min (>60) Glucose Level 404 MG/DL (74-106) H Lactic Acid Level 8.00 mmol/L (0.4-2.0) H 3.40 mmol/L (0.66-2.22) H Calcium Level 9.0 MG/DL (8.5-10.1) Total Bilirubin 0.2 MG/DL (0.2-1.0) Aspartate Amino Transf (AST/SGOT) 102 U/L (15-37) H Alanine Aminotransferase (ALT/SGPT) 45 U/L (12-78) Alkaline Phosphatase 103 U/L (46-116) Troponin I 0.233 ng/mL (0.000-0.056) Pro-B-Type Natriuretic Peptide 9097 pg/mL (0-125) H Total Protein 7.0 G/DL (6.4-8.2) Albumin 3.3 G/DL (3.4-5.0) L Globulin 3.7 g/dL Albumin/Globulin Ratio 0.9 (1.0-2.7) L Urine Color Yellow Urine Appearance Slightly cloudy Urine pH 6.5 (4.5-8.0) Urine Specific [place] 1.015 (1.005-1.035) Urine Protein 2+ (NEGATIVE) H Urine Glucose (UA) 2+ (NEGATIVE) H Urine Ketones Negative (NEGATIVE) Urine Blood 1+ (NEGATIVE) H Urine Nitrite Negative (NEGATIVE) Urine Bilirubin Negative (NEGATIVE) Urine Urobilinogen Normal MG/DL (0.0-1.0) Urine Leukocyte Esterase 1+ (NEGATIVE) H Urine RBC 2-4 /HPF (0 - 2) H Urine WBC 2-4 /HPF (0 - 2) Urine Squamous Epithelial Cells Moderate /LPF (NONE/OCC) H Urine Bacteria Many /HPF (NONE) H Test 02/14/20 04:40 02/14/20 12:35 White Blood Count 8.6 K/UL (4.8-10.8) 7.5 K/UL (4.8-10.8) Red Blood Count 4.42 M/UL (4.20-5.40) 4.35 M/UL (4.20-5.40) Hemoglobin 13.6 G/DL (12.0-16.0) 13.3 G/DL (12.0-16.0) Hematocrit 41.2 % (37.0-47.0) 40.2 % (37.0-47.0) Mean Corpuscular Volume 93 FL (80-99) 92 FL (80-99) Mean Corpuscular Hemoglobin 30.9 PG (27.0-31.0) 30.5 PG (27.0-31.0) Mean Corpuscular Hemoglobin Concent 33.1 G/DL (32.0-36.0) 33.0 G/DL (32.0-36.0) Red Cell Distribution Width 13.0 % (11.6-14.8) 13.7 % (11.6-14.8) Platelet Count 145 K/UL (150-450) L 152 K/UL (150-450) Mean Platelet Volume 7.4 FL (6.5-10.1) 9.3 FL (6.5-10.1) Neutrophils (%) (Auto) % (45.0-75.0) % (45.0-75.0) Lymphocytes (%) (Auto) % (20.0-45.0) % (20.0-45.0) Monocytes (%) (Auto) % (1.0-10.0) % (1.0-10.0) Eosinophils (%) (Auto) % (0.0-3.0) % (0.0-3.0) Basophils (%) (Auto) % (0.0-2.0) % (0.0-2.0) Differential Total Cells Counted 100 100 Neutrophils % (Manual) 83 % (45-75) H 84 % (45-75) H Lymphocytes % (Manual) 16 % (20-45) L 15 % (20-45) L Monocytes % (Manual) 1 % (1-10) 1 % (1-10) Eosinophils % (Manual) 0 % (0-3) 0 % (0-3) Basophils % (Manual) 0 % (0-2) 0 % (0-2) Band Neutrophils 0 % (0-8) 0 % (0-8) Platelet Estimate Decreased L Adequate Platelet Morphology Normal Normal Red Blood Cell Morphology Normal Normal Sodium Level 146 MMOL/L (136-145) H 147 MMOL/L (136-145) H Potassium Level 4.2 MMOL/L (3.5-5.1) 4.8 MMOL/L (3.5-5.1) Chloride Level 111 MMOL/L (98-107) H 109 MMOL/L (98-107) H Carbon Dioxide Level 20 MMOL/L (21-32) L 22 MMOL/L (21-32) Anion Gap 15 mmol/L (5-15) 16 mmol/L (5-15) H Blood Urea Nitrogen 11 mg/dL (7-18) 11 mg/dL (7-18) Creatinine 0.8 MG/DL (0.55-1.30) 0.8 MG/DL (0.55-1.30) Estimat Glomerular Filtration Rate > 60 mL/min (>60) > 60 mL/min (>60) Glucose Level 170 MG/DL (74-106) #H 151 MG/DL (74-106) H Calcium Level 8.3 MG/DL (8.5-10.1) L 8.9 MG/DL (8.5-10.1) Total Bilirubin 0.3 MG/DL (0.2-1.0) Aspartate Amino Transf (AST/SGOT) 70 U/L (15-37) H Alanine Aminotransferase (ALT/SGPT) 48 U/L (12-78) Alkaline Phosphatase 85 U/L (46-116) Troponin I 1.086 ng/mL (0.000-0.056) 0.802 ng/mL (0.000-0.056) Total Protein 6.9 G/DL (6.4-8.2) Albumin 3.2 G/DL (3.4-5.0) L Globulin 3.7 g/dL Albumin/Globulin Ratio 0.9 (1.0-2.7) L Activated Partial Thromboplast Time 27 SEC (23-33) Microbiology Date/Time Source Procedure Growth Status 02/13/20 22:10 Nasal Nares - Final Complete 02/13/20 22:10 Nasal Nares - Final Complete Height (Feet): 5 Height (Inches): 4.00 Weight (Pounds): 110 Medications Current Medications Medications (Trade) Dose Ordered Sig/Samanta Route PRN Reason Start Time Stop Time Status Last Admin Dose Admin Ascorbic Acid (Vitamin C) 500 mg DAILY ORAL 02/14/20 09:00 03/15/20 08:59 02/14/20 09:13 Aspirin (ASA) 81 mg DAILY ORAL 02/14/20 09:00 03/30/20 08:59 02/14/20 09:13 Atorvastatin Calcium (Lipitor) 10 mg BEDTIME ORAL 02/14/20 21:00 03/15/20 20:59 Azithromycin 250 mg/Dextrose 275 ml @ 275 mls/hr Q24HRS IV 02/14/20 23:00 02/15/20 23:59 Heparin Sodium/ Dextrose 500 ml @ 11.975 mls/ hr ADJUST PER PROTOCOL IV 02/14/20 12:30 03/15/20 12:29 02/14/20 13:41 Lisinopril (ZestriL) 10 mg DAILY ORAL 02/14/20 09:00 03/15/20 08:59 02/14/20 09:13 Prednisone (predniSONE) 40 mg DAILY ORAL 02/14/20 09:00 02/18/20 09:01 02/14/20 09:13 Sodium Chloride 1,000 ml @ 75 mls/hr [id number] IV 02/14/20 11:45 03/15/20 11:44 02/14/20 13:34 Assessment/Plan Status: stable Diagnosis [place] I: Ms. Lenz is a 69 year old female current smoker, HTN, presenting with COPD exacerbation, also found to have NSTEMI. #COPD Exacerbation -s/p solumedrol 125 mg x1, continue pred 40 mg (02/13 -) -pulmonology consult appreciated. -duonebs ATC -Continue ceftriaxone/azithro (02/12- ) -CXR without definitive infiltrate #Acute UTI -Continue ceftriaxone as above. #Hypernatremia -Nephrology following -1/2NS at 75mL/hr -Trend BMP #NSTEMI -Cardiology consult -heparin gtt (02/13 -) -Will need stress test -Trop peak 1.086 -ASA 325 mg x1, continue ASA 81 -Lipitor 10 Extra 36 mins spent on chart review of labs, imaging, meds, prior physician documentation. Marion Farias M.D. Feb 14, 2020 16:16
--- NOTE | 2020-02-14 16:22 | Infectious Diseases Prog Note ---
Assessment/Plan Assessment/Plan Full consult dictated: A) 1) ? CAP, copd, uri, bronchitis 2) pmh noted 3) allergies - ndka 4) pmh noted P) 1) ceftriaxone and azithromycin 2) check sc, labs and chest x-ray 3) thank you Subjective Allergies: Coded Allergies: No Known Allergies (Unverified , 01/22/15) Objective Vital Signs Last 24 Hour Vital Signs Date Time Temp Pulse Resp B/P (MAP) Pulse Ox O2 Delivery O2 Flow Rate FiO2 02/14/20 12:00 98.0 105 22 106/79 (88) 100 02/14/20 12:00 Nasal Cannula 2.0 02/14/20 12:00 2.0 02/14/20 11:43 105 02/14/20 09:13 134/84 02/14/20 08:00 98.0 100 21 134/84 (101) 98 02/14/20 08:00 35 02/14/20 08:00 Nasal Cannula 2.0 02/14/20 07:42 99 02/14/20 07:15 99 02/14/20 07:05 99 Nasal Cannula 2.0 28 02/14/20 04:48 71 27 100 30 02/14/20 04:00 97.8 110 20 111/83 (92) 99 02/14/20 04:00 100 02/14/20 04:00 35 02/14/20 02:58 74 18 99 35 02/14/20 01:57 62 16 100 30 02/14/20 01:54 97.2 113 20 146/97 (113) 99 02/14/20 01:40 Bi-Pap 15.0 02/14/20 01:35 97.6 98 23 136/77 97 Bi-pap 35 02/14/20 01:35 97.6 98 23 136/77 97 Bi-pap 15.0 35 02/13/20 23:36 97.9 105 26 125/87 99 Bi-pap 35 02/13/20 22:37 89 25 100 35 02/13/20 21:37 98.0 151 26 111/75 100 Bi-pap 02/13/20 21:37 151 26 Bi-pap 15.0 02/13/20 21:31 151 26 111/75 (87) 100 Bi-pap 15.0 Height (Feet): 5 Height (Inches): 4.00 Weight (Pounds): 110 Microbiology Date/Time Source Procedure Growth Status 02/13/20 22:10 Nasal Nares - Final Complete 02/13/20 22:10 Nasal Nares - Final Complete Laboratory Tests Test 02/13/20 21:30 02/13/20 21:40 02/13/20 22:56 02/13/20 23:01 Arterial Blood pH 7.297 (7.350-7.450) Arterial Blood Partial Pressure CO2 41.2 mmHg (35.0-45.0) Arterial Blood Partial Pressure O2 260.9 mmHg (75.0-100.0) H Arterial Blood HCO3 19.7 mmol/L (22.0-26.0) L Arterial Blood Oxygen Saturation 99.3 % (95-100) Arterial Blood Base Excess -6.4 (-2-2) L Rishabh Test Positive White Blood Count 7.9 K/UL (4.8-10.8) Red Blood Count 4.35 M/UL (4.20-5.40) Hemoglobin 13.3 G/DL (12.0-16.0) Hematocrit 42.4 % (37.0-47.0) Mean Corpuscular Volume 97 FL (80-99) Mean Corpuscular Hemoglobin 30.5 PG (27.0-31.0) Mean Corpuscular Hemoglobin Concent 31.3 G/DL (32.0-36.0) L Red Cell Distribution Width 14.4 % (11.6-14.8) Platelet Count 166 K/UL (150-450) Mean Platelet Volume 9.3 FL (6.5-10.1) Neutrophils (%) (Auto) % (45.0-75.0) Lymphocytes (%) (Auto) % (20.0-45.0) Monocytes (%) (Auto) % (1.0-10.0) Eosinophils (%) (Auto) % (0.0-3.0) Basophils (%) (Auto) % (0.0-2.0) Differential Total Cells Counted 100 Neutrophils % (Manual) 34 % (45-75) L Lymphocytes % (Manual) 60 % (20-45) H Monocytes % (Manual) 5 % (1-10) Eosinophils % (Manual) 1 % (0-3) Basophils % (Manual) 0 % (0-2) Band Neutrophils 0 % (0-8) Platelet Estimate Adequate Platelet Morphology Normal Anisocytosis 1+ Macrocytosis 1+ Sodium Level 144 MMOL/L (136-145) Potassium Level 3.7 MMOL/L (3.5-5.1) Chloride Level 106 MMOL/L (98-107) Carbon Dioxide Level 21 MMOL/L (21-32) Anion Gap 17 mmol/L (5-15) H Blood Urea Nitrogen 13 mg/dL (7-18) Creatinine 1.3 MG/DL (0.55-1.30) Estimat Glomerular Filtration Rate 49.3 mL/min (>60) Glucose Level 404 MG/DL (74-106) H Lactic Acid Level 8.00 mmol/L (0.4-2.0) H 3.40 mmol/L (0.66-2.22) H Calcium Level 9.0 MG/DL (8.5-10.1) Total Bilirubin 0.2 MG/DL (0.2-1.0) Aspartate Amino Transf (AST/SGOT) 102 U/L (15-37) H Alanine Aminotransferase (ALT/SGPT) 45 U/L (12-78) Alkaline Phosphatase 103 U/L (46-116) Troponin I 0.233 ng/mL (0.000-0.056) Pro-B-Type Natriuretic Peptide 9097 pg/mL (0-125) H Total Protein 7.0 G/DL (6.4-8.2) Albumin 3.3 G/DL (3.4-5.0) L Globulin 3.7 g/dL Albumin/Globulin Ratio 0.9 (1.0-2.7) L Urine Color Yellow Urine Appearance Slightly cloudy Urine pH 6.5 (4.5-8.0) Urine Specific [place] 1.015 (1.005-1.035) Urine Protein 2+ (NEGATIVE) H Urine Glucose (UA) 2+ (NEGATIVE) H Urine Ketones Negative (NEGATIVE) Urine Blood 1+ (NEGATIVE) H Urine Nitrite Negative (NEGATIVE) Urine Bilirubin Negative (NEGATIVE) Urine Urobilinogen Normal MG/DL (0.0-1.0) Urine Leukocyte Esterase 1+ (NEGATIVE) H Urine RBC 2-4 /HPF (0 - 2) H Urine WBC 2-4 /HPF (0 - 2) Urine Squamous Epithelial Cells Moderate /LPF (NONE/OCC) H Urine Bacteria Many /HPF (NONE) H Test 02/14/20 04:40 02/14/20 12:35 White Blood Count 8.6 K/UL (4.8-10.8) 7.5 K/UL (4.8-10.8) Red Blood Count 4.42 M/UL (4.20-5.40) 4.35 M/UL (4.20-5.40) Hemoglobin 13.6 G/DL (12.0-16.0) 13.3 G/DL (12.0-16.0) Hematocrit 41.2 % (37.0-47.0) 40.2 % (37.0-47.0) Mean Corpuscular Volume 93 FL (80-99) 92 FL (80-99) Mean Corpuscular Hemoglobin 30.9 PG (27.0-31.0) 30.5 PG (27.0-31.0) Mean Corpuscular Hemoglobin Concent 33.1 G/DL (32.0-36.0) 33.0 G/DL (32.0-36.0) Red Cell Distribution Width 13.0 % (11.6-14.8) 13.7 % (11.6-14.8) Platelet Count 145 K/UL (150-450) L 152 K/UL (150-450) Mean Platelet Volume 7.4 FL (6.5-10.1) 9.3 FL (6.5-10.1) Neutrophils (%) (Auto) % (45.0-75.0) % (45.0-75.0) Lymphocytes (%) (Auto) % (20.0-45.0) % (20.0-45.0) Monocytes (%) (Auto) % (1.0-10.0) % (1.0-10.0) Eosinophils (%) (Auto) % (0.0-3.0) % (0.0-3.0) Basophils (%) (Auto) % (0.0-2.0) % (0.0-2.0) Differential Total Cells Counted 100 100 Neutrophils % (Manual) 83 % (45-75) H 84 % (45-75) H Lymphocytes % (Manual) 16 % (20-45) L 15 % (20-45) L Monocytes % (Manual) 1 % (1-10) 1 % (1-10) Eosinophils % (Manual) 0 % (0-3) 0 % (0-3) Basophils % (Manual) 0 % (0-2) 0 % (0-2) Band Neutrophils 0 % (0-8) 0 % (0-8) Platelet Estimate Decreased L Adequate Platelet Morphology Normal Normal Red Blood Cell Morphology Normal Normal Sodium Level 146 MMOL/L (136-145) H 147 MMOL/L (136-145) H Potassium Level 4.2 MMOL/L (3.5-5.1) 4.8 MMOL/L (3.5-5.1) Chloride Level 111 MMOL/L (98-107) H 109 MMOL/L (98-107) H Carbon Dioxide Level 20 MMOL/L (21-32) L 22 MMOL/L (21-32) Anion Gap 15 mmol/L (5-15) 16 mmol/L (5-15) H Blood Urea Nitrogen 11 mg/dL (7-18) 11 mg/dL (7-18) Creatinine 0.8 MG/DL (0.55-1.30) 0.8 MG/DL (0.55-1.30) Estimat Glomerular Filtration Rate > 60 mL/min (>60) > 60 mL/min (>60) Glucose Level 170 MG/DL (74-106) #H 151 MG/DL (74-106) H Calcium Level 8.3 MG/DL (8.5-10.1) L 8.9 MG/DL (8.5-10.1) Total Bilirubin 0.3 MG/DL (0.2-1.0) Aspartate Amino Transf (AST/SGOT) 70 U/L (15-37) H Alanine Aminotransferase (ALT/SGPT) 48 U/L (12-78) Alkaline Phosphatase 85 U/L (46-116) Troponin I 1.086 ng/mL (0.000-0.056) 0.802 ng/mL (0.000-0.056) Total Protein 6.9 G/DL (6.4-8.2) Albumin 3.2 G/DL (3.4-5.0) L Globulin 3.7 g/dL Albumin/Globulin Ratio 0.9 (1.0-2.7) L Activated Partial Thromboplast Time 27 SEC (23-33) Current Medications Medications (Trade) Dose Ordered Sig/Samanta Route PRN Reason Start Time Stop Time Status Last Admin Dose Admin Ascorbic Acid (Vitamin C) 500 mg DAILY ORAL 02/14/20 09:00 03/15/20 08:59 02/14/20 09:13 Aspirin (ASA) 81 mg DAILY ORAL 02/14/20 09:00 03/30/20 08:59 02/14/20 09:13 Atorvastatin Calcium (Lipitor) 10 mg BEDTIME ORAL 02/14/20 21:00 03/15/20 20:59 Azithromycin 250 mg/Dextrose 275 ml @ 275 mls/hr Q24HRS IV 02/14/20 23:00 02/15/20 23:59 Heparin Sodium/ Dextrose 500 ml @ 11.975 mls/ hr ADJUST PER PROTOCOL IV 02/14/20 12:30 03/15/20 12:29 02/14/20 13:41 Lisinopril (ZestriL) 10 mg DAILY ORAL 02/14/20 09:00 03/15/20 08:59 02/14/20 09:13 Prednisone (predniSONE) 40 mg DAILY ORAL 02/14/20 09:00 02/18/20 09:01 02/14/20 09:13 Sodium Chloride 1,000 ml @ 75 mls/hr [id number] IV 02/14/20 11:45 03/15/20 11:44 02/14/20 13:34 Solomon Osei MD Feb 14, 2020 16:22
--- NOTE | 2020-02-14 19:15 | Consultation ---
DATE OF CONSULTATION: 02/14/2020 INFECTIOUS DISEASE CONSULTATION CONSULTING PHYSICIAN: Solomon Osei M.D. ATTENDING PHYSICIAN: Gilbert Stephens M.D. REFERRING PHYSICIAN: Marion Farias M.D. REASON FOR CONSULTATION: Possible community-acquired pneumonia, upper respiratory infection/bronchitis. CHIEF COMPLAINT: The patient's chief complaint coming into the hospital, COPD exacerbation, possible community-acquired pneumonia. HISTORY OF PRESENT ILLNESS: This is a very pleasant 69-year-old female, who over the last day became acutely short of breath. The patient was noted to have yellow-green sputum production. The patient was admitted for COPD exacerbation, but there is concern that the patient could have a community-acquired pneumonia based on clinical parameters such as sputum production and shortness of breath. Infectious Disease consult requested for antibiotic management in this patient. The patient was placed on Rocephin and azithromycin to cover community-acquired pneumonia pending workup. Sputum culture and followup chest x-ray has also been ordered. MAR was noted. Orders notes and reviewed. Case discussed with the patient and the patient's family. Also the RN. REVIEW OF SYSTEMS: CONSTITUTIONAL: The patient has no fever, chills, night sweats, or weight loss. SKIN: She has no rash or itching. HEAD AND NECK: No thrush, dysphagia, headache, or neck stiffness. CARDIAC: No chest pain or palpitations. GASTROINTESTINAL: No nausea, vomiting, abdominal pain, or diarrhea. GENITOURINARY: No dysuria or frequency. No CVA tenderness, history of frequency, or [place]. PULMONARY: She has cough, congestion, yellow-green sputum production. EXTREMITIES: No extremity pain. NEUROLOGIC: No seizures. No focal weakness. PAST MEDICAL HISTORY: She has a past medical history of CVA, stroke, TIA. She has history of COPD, hypertension, this is per the records. Shortness of breath, looks like she has non-STEMI, CAD, hypernatremia, hyperlipidemia. ALLERGIES: No known drug allergies. No antibiotic allergies. SOCIAL HISTORY: Negative for smoking, alcohol, drug abuse. FAMILY HISTORY: Noncontributory. Negative for tuberculosis or cancer. MEDICATIONS: Upon reviewing the MAR, she is on following medications: She is on azithromycin, Rocephin. She is on Lipitor, heparin, prednisone, ascorbic acid, aspirin, lisinopril. Methylprednisolone was given also. Outside medications noted and reconciliated. PHYSICAL EXAMINATION: VITAL SIGNS: Temperature 98.0, pulse of 105, heart rate 22, blood pressure 106/79, saturation 100%, pulse rate is as high as 105. GENERAL: Alert, responsive, no acute distress. She is on O2. HEAD AND NECK: Oral exam, no thrush. Eye exam, no icterus. Normocephalic. Neck is supple. No JVD. HEART: Regular. No gallop or murmur. ABDOMEN: Soft. Positive bowel sounds. Nontender. LUNGS: Few bilateral rhonchi and possible rales. SKIN: No rash. MUSCULOSKELETAL: No effusion or septic arthritis. Legs are without cellulitis. PERIPHERAL VASCULAR: No gangrene. GENITOURINARY: No [place]. No CVA tenderness. LINE SITES: Without phlebitis. NEUROLOGIC: Intact. Alert and oriented x3. LABORATORY DATA: White count 7.5, hemoglobin 13.3. Creatinine 0.8. UA with 1+ leukocyte esterase and many bacteria. Cultures, I have ordered sputum culture and urine culture is pending. Influenza screen is negative. Lactic acid level was as high as 8.0. Troponin 1.086. IMAGING STUDIES: Chest x-ray initially showed cardiomegaly. No obvious consolidation. Followup chest x-ray has been ordered with hydration. ASSESSMENT AND PLAN: 1. The patient has shortness of breath, cough, congestion, elevated lactic acid. She looks like she has a respiratory infection some type. Based on her clinical exam and presenting symptoms, must rule out community-acquired pneumonia in addition to upper respiratory infection/bronchitis and also COPD exacerbation. At this time, I agree with Rocephin and azithromycin to cover community-acquired pneumonia. Check sputum culture. Followup laboratories and followup chest x-ray with hydration. Also continue steroids for COPD. In addition, she could have urinary tract infection. We will check urine culture. She is on Rocephin. 2. Chronic obstructive pulmonary disease exacerbation. The patient is on steroids and continue breathing treatments. 3. History of TIA. 4. COPD. 5. CVA. 6. Weakness on right side. 7. Embolic cva 8. History of dysphagia also. 9. Hypertension. 10. Hypernatremia. 11. Non-STEMI. 12. CAD. 13. No known drug allergies. 14. Social history is negative. 15. Family history is noncontributory. 16. MAR is noted. 17. Case discussed with RN. 18. Continue treatment per primary consultants. 19. Orders were noted and entered. ADDENDUM: She also has elevated troponin workup per Cardiology. Solomon Osei M.D. DR: MARIAM JOB#: [id number] CC: MEENA
[2020-02-14] MEDS ORDERED: cefTRIAXone 1 GM in D5W 55 ML IVPB SCH (22:00)
[2020-02-14] MEDS ORDERED: Azithromycin 250 MG in D5W 275 ML IV SCH (23:00)
[2020-02-15] VITALS: BP 139/75
[2020-02-15 04:00] VITALS: BP 122/85
[2020-02-15] MEDS ORDERED: Heparin 25,000u/D5W 500ml 500 ML IV SCH (05:45)
[2020-02-15] MEDS ORDERED: Heparin 5000 units/ml inj IV SCH (05:45)
[2020-02-15 05:55] LABS: ANION GAP 14 mmol/L (5-15); BLOOD UREA NITROGEN 17 mg/dL (7-18); CARBON DIOXIDE 21 MMOL/L (21-32); CHLORIDE 108 MMOL/L (98-107); CREATININE 0.9 MG/DL (0.55-1.30); PHOSPHORUS 2.3 MG/DL (2.5-4.9); POTASSIUM 4.3 MMOL/L (3.5-5.1); SODIUM 143 MMOL/L (136-145)
[2020-02-15 08:00] VITALS: BP 116/85
--- NOTE | 2020-02-15 08:40 | Consultation ---
History of Present Illness General Date patient seen: Feb 15, 2020 Time patient seen: 08:33 Chief Complaint: Dyspnea/Respdistress Present Illness HPI 69 year old female, current smoker (since age 16), no prior hx of lung disease, has hx of HTN, presenting with 1 day of acute SOB, wheezing that ocurred last night. denies any sick contacts, fever, chills, chest pain, n/v, abdominal pain. denies any prior similar episodes. The patient was admitted for COPD exacerbation, but there is concern that the patient could have a community- acquired pneumonia based on clinical parameters such as sputum production and shortness of breath. Infectious Disease consult requested for antibiotic management in this patient. The patient was placed on Rocephin and azithromycin to cover community-acquired pneumonia. Cardiology consulted for elevated troponin. Allergies: Coded Allergies: No Known Allergies (Unverified , 01/22/15) Medication History Scheduled Ascorbic Acid* (Vitamin C*), 500 MG ORAL DAILY, (Reported) Aspirin* (Aspirin*), 81 MG ORAL DAILY Atorvastatin Calcium* (Lipitor*), 10 MG ORAL BEDTIME Calcium Carbonate (Calcium), 1,500 MG PO DAILY, (Reported) Lisinopril* (Zestril*), 10 MG ORAL DAILY Patient History Healthcare decision maker Resuscitation status Full Code Advanced Directive on File Review of Systems Constitutional: Reports: no symptoms Eye: Reports: no symptoms ENT: Reports: no symptoms Respiratory: Reports: shortness of breath, wheezing, sputum Cardiovascular: Reports: no symptoms Gastrointestinal: Reports: no symptoms Genitourinary: Reports: no symptoms Musculoskeletal: Reports: no symptoms Skin: Reports: no symptoms Psychiatric: Reports: no symptoms Neurological: Reports: no symptoms Endocrine: Reports: no symptoms Hematologic/Lymphatic: Reports: no symptoms Physical Exam General Appearance: no apparent distress, alert Lines, tubes and drains: peripheral HEENT: normocephalic, atraumatic, anicteric, mucous membranes moist, PERRL Neck: non-tender, normal alignment, supple, normal inspection Respiratory/Chest: chest wall non-tender, crackles/rales, rhonchi - bilaterally , inspiratory wheezing Cardiovascular/Chest: normal peripheral pulses, normal rate, regular rhythm Abdomen: normal bowel sounds, non tender, soft, no organomegaly, no mass Extremities: normal range of motion, non-tender, normal inspection, no calf tenderness, normal capillary refill Skin Exam: normal pigmentation, warm/dry, cyanotic 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, no motor/sensory deficits Last 24 Hour Vital Signs Date Time Temp Pulse Resp B/P (MAP) Pulse Ox O2 Delivery O2 Flow Rate FiO2 02/15/20 07:07 97 Bi-Pap 30 02/15/20 07:07 122 33 97 30 02/15/20 05:05 2.0 02/15/20 04:00 108 02/15/20 04:00 30 02/15/20 04:00 Bi-pap 02/15/20 04:00 98.0 109 24 122/85 (97) 96 02/15/20 02:46 110 32 98 30 02/15/20 00:57 123 39 96 30 02/15/20 00:00 Bi-pap 02/15/20 00:00 30 02/15/20 00:00 98.4 118 24 139/75 (96) 98 02/14/20 23:23 111 02/14/20 23:15 111 23 98 30 02/14/20 20:50 125 41 97 30 02/14/20 20:00 Bi-pap 02/14/20 20:00 30 02/14/20 20:00 97.9 115 22 101/58 (72) 96 02/14/20 19:24 130 02/14/20 19:09 99 Bi-Pap 30 02/14/20 18:57 98 32 100 30 02/14/20 16:08 113 02/14/20 16:00 96.6 122 21 131/94 (106) 92 02/14/20 16:00 2.0 02/14/20 16:00 Nasal Cannula 2.0 02/14/20 12:00 98.0 105 22 106/79 (88) 100 02/14/20 12:00 Nasal Cannula 2.0 02/14/20 12:00 2.0 02/14/20 11:43 105 02/14/20 09:13 134/84 Intake and Output 02/14/20 02/15/20 19:00 07:00 Intake Total 491.850 ml 518.646 ml Output Total 400 ml Balance 91.850 ml 518.646 ml Intake Oral 420 ml IV Total 71.850 ml 518.646 ml Output Urine Total 400 ml # Voids 3 # Bowel Movements 2 1 Laboratory Tests Test 02/14/20 12:35 02/14/20 19:30 02/15/20 03:45 White Blood Count 7.5 K/UL (4.8-10.8) Red Blood Count 4.35 M/UL (4.20-5.40) Hemoglobin 13.3 G/DL (12.0-16.0) Hematocrit 40.2 % (37.0-47.0) Mean Corpuscular Volume 92 FL (80-99) Mean Corpuscular Hemoglobin 30.5 PG (27.0-31.0) Mean Corpuscular Hemoglobin Concent 33.0 G/DL (32.0-36.0) Red Cell Distribution Width 13.7 % (11.6-14.8) Platelet Count 152 K/UL (150-450) Mean Platelet Volume 9.3 FL (6.5-10.1) Neutrophils (%) (Auto) % (45.0-75.0) Lymphocytes (%) (Auto) % (20.0-45.0) Monocytes (%) (Auto) % (1.0-10.0) Eosinophils (%) (Auto) % (0.0-3.0) Basophils (%) (Auto) % (0.0-2.0) Differential Total Cells Counted 100 Neutrophils % (Manual) 84 % (45-75) H Lymphocytes % (Manual) 15 % (20-45) L Monocytes % (Manual) 1 % (1-10) Eosinophils % (Manual) 0 % (0-3) Basophils % (Manual) 0 % (0-2) Band Neutrophils 0 % (0-8) Platelet Estimate Adequate Platelet Morphology Normal Red Blood Cell Morphology Normal Activated Partial Thromboplast Time 27 SEC (23-33) 88 SEC (23-33) H 51 SEC (23-33) H Sodium Level 147 MMOL/L (136-145) H 143 MMOL/L (136-145) Potassium Level 4.8 MMOL/L (3.5-5.1) 4.3 MMOL/L (3.5-5.1) Chloride Level 109 MMOL/L (98-107) H 108 MMOL/L (98-107) H Carbon Dioxide Level 22 MMOL/L (21-32) 21 MMOL/L (21-32) Anion Gap 16 mmol/L (5-15) H 14 mmol/L (5-15) Blood Urea Nitrogen 11 mg/dL (7-18) 17 mg/dL (7-18) Creatinine 0.8 MG/DL (0.55-1.30) 0.9 MG/DL (0.55-1.30) Estimat Glomerular Filtration Rate > 60 mL/min (>60) > 60 mL/min (>60) Glucose Level 151 MG/DL (74-106) H 133 MG/DL (74-106) H Calcium Level 8.9 MG/DL (8.5-10.1) 9.0 MG/DL (8.5-10.1) Troponin I 0.802 ng/mL (0.000-0.056) Erythrocyte Sedimentation Rate 20 MM/HR (0-30) Phosphorus Level 2.3 MG/DL (2.5-4.9) L Magnesium Level 1.6 MG/DL (1.8-2.4) L C-Reactive Protein, Quantitative 1.2 mg/dL (0.00-0.90) H Amylase Level 53 U/L (25-115) Lipase 79 U/L (73-393) Height (Feet): 5 Height (Inches): 4.00 Weight (Pounds): 110 Medications Current Medications Medications (Trade) Dose Ordered Sig/Samanta Route PRN Reason Start Time Stop Time Status Last Admin Dose Admin Ascorbic Acid (Vitamin C) 500 mg DAILY ORAL 02/14/20 09:00 03/15/20 08:59 02/14/20 09:13 Aspirin (ASA) 81 mg DAILY ORAL 02/14/20 09:00 03/30/20 08:59 02/14/20 09:13 Atorvastatin Calcium (Lipitor) 10 mg BEDTIME ORAL 02/14/20 21:00 03/15/20 20:59 02/14/20 20:48 Azithromycin 250 mg/Dextrose 275 ml @ 275 mls/hr Q24HRS IV 02/14/20 23:00 02/15/20 23:59 02/14/20 23:41 Ceftriaxone Sodium 1 gm/ Dextrose 55 ml @ 110 mls/hr Q24H IVPB 02/14/20 22:00 02/21/20 21:59 02/14/20 22:03 Heparin Sodium/ Dextrose 500 ml @ 13.971 mls/ hr ADJUST PER PROTOCOL IV 02/15/20 05:45 03/16/20 05:44 02/15/20 05:53 Lisinopril (ZestriL) 10 mg DAILY ORAL 02/14/20 09:00 03/15/20 08:59 02/14/20 09:13 Prednisone (predniSONE) 40 mg DAILY ORAL 02/14/20 09:00 02/18/20 09:01 02/14/20 09:13 Assessment/Plan Status: stable Assessment/Plan: Assessment/Plan Ms. Lenz is a 69 year old female current smoker, HTN, presenting with COPD exacerbation, also found to have NSTEMI. -Serial EKG/Trponin -Echocardiogram -Hold heparin -Aspirin -Statin -Stress test prior to d/c -Nitro prn chest pain Thierry Crawford MD Feb 15, 2020 08:40
[2020-02-15] MEDS ORDERED: Azithromycin 250mg tab ORAL SCH (09:00)
[2020-02-15] MEDS: Aspirin Baby 81mg ORAL SCH (09:52)
[2020-02-15] MEDS: Lisinopril 10mg tab ORAL SCH (09:52)
[2020-02-15] MEDS: Ascorbic Acid 500mg tab ORAL SCH (09:52)
--- NOTE | 2020-02-15 10:11 | Diagnostic Imaging Report ---
. Indication: Shortness of breath Technique: One view of the chest Comparison: 02/13/2020 Findings: The heart is enlarged. The lungs and pleural spaces are clear. The aorta is tortuous and calcified. No significant interim change Impression: Unchanged, over one day, findings as above.. Cardiomegaly. No acute process
--- NOTE | 2020-02-15 10:24 | Diagnostic Imaging Report ---
Indication: Abdominal pain Technique: One view of the abdomen Comparison: none Findings: Bowel gas pattern is unremarkable. No masses or unusual calcifications. The bones are unremarkable Impression: Negative
[2020-02-15 12:00] VITALS: BP 121/81
--- NOTE | 2020-02-15 12:24 | Nephrology Progress Note ---
Assessment/Plan Plan #Hypernatremia #Sepsis #lactic acidosis #Pneumonia/COPD exacerbation #Tropnemia #hyperglycemia - pulm consulted - ID consulted - Bipap prn - abx - steroid - trend trop - cardiology consult - monitor BMP - trend lactic acid- improved Subjective Subjective Breathing stable sodium improved heparin drip held tolerating abx Objective Objective Last 24 Hour Vital Signs Date Time Temp Pulse Resp B/P (MAP) Pulse Ox O2 Delivery O2 Flow Rate FiO2 02/15/20 11:35 126 35 97 30 02/15/20 09:52 116/85 02/15/20 08:00 97.0 121 24 116/85 (95) 97 02/15/20 08:00 116 02/15/20 08:00 Bi-pap 02/15/20 07:07 97 Bi-Pap 30 02/15/20 07:07 122 33 97 30 02/15/20 05:05 2.0 02/15/20 04:00 108 02/15/20 04:00 30 02/15/20 04:00 Bi-pap 02/15/20 04:00 98.0 109 24 122/85 (97) 96 02/15/20 02:46 110 32 98 30 02/15/20 00:57 123 39 96 30 02/15/20 00:00 Bi-pap 02/15/20 00:00 30 02/15/20 00:00 98.4 118 24 139/75 (96) 98 02/14/20 23:23 111 02/14/20 23:15 111 23 98 30 02/14/20 20:50 125 41 97 30 02/14/20 20:00 Bi-pap 02/14/20 20:00 30 02/14/20 20:00 97.9 115 22 101/58 (72) 96 02/14/20 19:24 130 02/14/20 19:09 99 Bi-Pap 30 02/14/20 18:57 98 32 100 30 02/14/20 16:08 113 02/14/20 16:00 96.6 122 21 131/94 (106) 92 02/14/20 16:00 2.0 02/14/20 16:00 Nasal Cannula 2.0 Intake and Output 02/14/20 02/15/20 19:00 07:00 Intake Total 491.850 ml 518.646 ml Output Total 400 ml Balance 91.850 ml 518.646 ml Intake Oral 420 ml IV Total 71.850 ml 518.646 ml Output Urine Total 400 ml # Voids 3 # Bowel Movements 2 1 Laboratory Tests 02/14/20 12:35: White Blood Count 7.5, Red Blood Count 4.35, Hemoglobin 13.3, Hematocrit 40.2, Mean Corpuscular Volume 92, Mean Corpuscular Hemoglobin 30.5, Mean Corpuscular Hemoglobin Concent 33.0, Red Cell Distribution Width 13.7, Platelet Count 152, Mean Platelet Volume 9.3, Neutrophils (%) (Auto) , Lymphocytes (%) (Auto) , Monocytes (%) (Auto) , Eosinophils (%) (Auto) , Basophils (%) (Auto) , Differential Total Cells Counted 100, Neutrophils % (Manual) 84H, Lymphocytes % (Manual) 15L, Monocytes % (Manual) 1, Eosinophils % (Manual) 0, Basophils % ( Manual) 0, Band Neutrophils 0, Platelet Estimate Adequate, Platelet Morphology Normal, Red Blood Cell Morphology Normal, Activated Partial Thromboplast Time 27 , Sodium Level 147H, Potassium Level 4.8, Chloride Level 109H, Carbon Dioxide Level 22, Anion Gap 16H, Blood Urea Nitrogen 11, Creatinine 0.8, Estimat Glomerular Filtration Rate > 60, Glucose Level 151H, Calcium Level 8.9, Troponin I 0.802H 02/14/20 19:30: Activated Partial Thromboplast Time 88H 02/15/20 03:45: Activated Partial Thromboplast Time 51H, Sodium Level 143, Potassium Level 4.3, Chloride Level 108H, Carbon Dioxide Level 21, Anion Gap 14, Blood Urea Nitrogen 17, Creatinine 0.9, Estimat Glomerular Filtration Rate > 60, Glucose Level 133H , Calcium Level 9.0, Erythrocyte Sedimentation Rate 20, Phosphorus Level 2.3L, Magnesium Level 1.6L, C-Reactive Protein, Quantitative 1.2H, Amylase Level 53, Lipase 79 02/15/20 10:26: Arterial Blood pH 7.518H, Arterial Blood Partial Pressure CO2 29.9L, Arterial Blood Partial Pressure O2 141.2H, Arterial Blood HCO3 23.8, Arterial Blood Oxygen Saturation 98.9, Arterial Blood Base Excess 1.7, Rishabh Test Positive Height (Feet): 5 Height (Inches): 4.00 Weight (Pounds): 110 Objective General Appearance: WD/WN, no apparent distress HEENT: normocephalic, atraumatic Neck: non-tender Respiratory/Chest: expiratory wheezing Cardiovascular/Chest: normal peripheral pulses, normal rate, regular rhythm Abdomen: non tender, soft, no organomegaly Neurologic: alert, oriented x 3 Michael Swanson M.D. Feb 15, 2020 12:24
--- NOTE | 2020-02-15 15:44 | Surgery Progress Note ---
Surgery Progress Note Subjective Symptoms: tolerating diet, voiding well, passing flatus, pain decreased Objective Last 24 Hour Vital Signs Date Time Temp Pulse Resp B/P (MAP) Pulse Ox O2 Delivery O2 Flow Rate FiO2 02/15/20 12:00 97.8 112 20 121/81 (94) 98 02/15/20 12:00 2.0 02/15/20 12:00 124 02/15/20 12:00 Bi-pap 02/15/20 11:35 126 35 97 30 02/15/20 09:52 116/85 02/15/20 08:00 97.0 121 24 116/85 (95) 97 02/15/20 08:00 116 02/15/20 08:00 30 02/15/20 08:00 Bi-pap 02/15/20 07:07 97 Bi-Pap 30 02/15/20 07:07 122 33 97 30 02/15/20 05:05 2.0 02/15/20 04:00 108 02/15/20 04:00 30 02/15/20 04:00 Bi-pap 02/15/20 04:00 98.0 109 24 122/85 (97) 96 02/15/20 02:46 110 32 98 30 02/15/20 00:57 123 39 96 30 02/15/20 00:00 Bi-pap 02/15/20 00:00 30 02/15/20 00:00 98.4 118 24 139/75 (96) 98 02/14/20 23:23 111 02/14/20 23:15 111 23 98 30 02/14/20 20:50 125 41 97 30 02/14/20 20:00 Bi-pap 02/14/20 20:00 30 02/14/20 20:00 97.9 115 22 101/58 (72) 96 02/14/20 19:24 130 02/14/20 19:09 99 Bi-Pap 30 02/14/20 18:57 98 32 100 30 02/14/20 16:08 113 02/14/20 16:00 96.6 122 21 131/94 (106) 92 02/14/20 16:00 2.0 02/14/20 16:00 Nasal Cannula 2.0 I&O Intake and Output 02/14/20 02/15/20 19:00 07:00 Intake Total 491.850 ml 518.646 ml Output Total 400 ml Balance 91.850 ml 518.646 ml Intake Oral 420 ml IV Total 71.850 ml 518.646 ml Output Urine Total 400 ml # Voids 3 # Bowel Movements 2 1 Dressing: other Wound: other Cardiovascular: RSR Respiratory: decreased breath sounds Abdomen: soft, non-tender, present bowel sounds Extremities: no cyanosis Laboratory Tests Test 02/14/20 19:30 02/15/20 03:45 02/15/20 10:26 02/15/20 12:00 Activated Partial Thromboplast Time 88 SEC (23-33) H 51 SEC (23-33) H 51 SEC (23-33) H Erythrocyte Sedimentation Rate 20 MM/HR (0-30) Sodium Level 143 MMOL/L (136-145) Potassium Level 4.3 MMOL/L (3.5-5.1) Chloride Level 108 MMOL/L (98-107) H Carbon Dioxide Level 21 MMOL/L (21-32) Anion Gap 14 mmol/L (5-15) Blood Urea Nitrogen 17 mg/dL (7-18) Creatinine 0.9 MG/DL (0.55-1.30) Estimat Glomerular Filtration Rate > 60 mL/min (>60) Glucose Level 133 MG/DL (74-106) H Calcium Level 9.0 MG/DL (8.5-10.1) Phosphorus Level 2.3 MG/DL (2.5-4.9) L Magnesium Level 1.6 MG/DL (1.8-2.4) L C-Reactive Protein, Quantitative 1.2 mg/dL (0.00-0.90) H Amylase Level 53 U/L (25-115) Lipase 79 U/L (73-393) Arterial Blood pH 7.518 (7.350-7.450) Arterial Blood Partial Pressure CO2 29.9 mmHg (35.0-45.0) L Arterial Blood Partial Pressure O2 141.2 mmHg (75.0-100.0) H Arterial Blood HCO3 23.8 mmol/L (22.0-26.0) Arterial Blood Oxygen Saturation 98.9 % (95-100) Arterial Blood Base Excess 1.7 (-2-2) Rishabh Test Positive Plan Problems: (1) Lactic acidosis Assessment & Plan: Lactic acidosis secondary to likely dehydration as patient has not been taking much oral intake as she feels discomfort in her chest and throat as she eats. States she is feeling little bit better now unable to take in a little bit more liquids. Currently no nausea vomiting fever chills. Passing flatus. Bowel movement. IV hydration. Unlikely ischemic bowel given examination. Hold on imaging. (2) Abdominal pain Assessment & Plan: Patient with abdominal discomfort and severe lactic acidosis concerning for possible bowel etiology. On examination abdomen soft nontender nondistended mild discomfort with deep palpation but unlikely to have low flow. Okay for diet. Will follow with exam. Trend labs. (3) Dysphasia Assessment & Plan: Patient states discomfort with eating feels it in the throat and chest. States resolving and improved with liquids at this time. Continue with diet. Monitor closely (4) Respiratory distress Assessment & Plan: Study limited to single portable AP chest radiograph. At least mild cardiomegaly. There is tortuosity/ectasia of the thoracic aorta. Overlying artifact in the right costophrenic angle region. Negative for focal consolidation, pneumothorax or pleural fluid collections. Recommend upright PA and lateral views of the chest when clinically feasible. Aftab Elmore Feb 15, 2020 15:44
--- NOTE | 2020-02-15 15:45 | Consultation ---
DATE OF CONSULTATION: 02/15/2020 PULMONARY CONSULTATION CONSULTING PHYSICIAN: Ankit Wood M.D. HISTORY OF PRESENT ILLNESS: This is a 69-year-old female who was admitted to the hospital with respiratory failure. The patient presented several days ago with a history of cough, shortness of breath. She has a history of COPD. There was concern about pneumonia. Antibiotics were started and she was seen by Infectious Disease specialist as well. The patient was also evaluated by Nephrology and Cardiology as well as General Surgery. The patient reports being an active smoker. Also reports hypertension. PAST MEDICAL HISTORY: Notable for COPD, hypertension, previous CVA. HOME MEDICATIONS: Vitamin C, aspirin, Lipitor, lisinopril, and calcium. REVIEW OF SYSTEMS: Denies any headaches, hematemesis, melena, hematochezia, night sweats, or weight loss. PHYSICAL EXAMINATION: GENERAL: Reveals a 69-year-old female. She is on a BiPAP. HEENT: Unremarkable. CHEST: Shows decreased breath sounds bilaterally with normal heart sounds. ABDOMEN: Soft. EXTREMITIES: There is no edema. VITAL SIGNS: Blood pressure is 116/80, heart rate is 110, respirations are 26, she is afebrile. LABORATORY TESTING: Shows normal CBC and BMP. ABG shows pH 7.29, pCO2 41, pO2 of 260. Urinalysis negative. X-ray chest shows cardiomegaly. IMPRESSION: 1. Suspect pulmonary edema. 2. Exacerbation of COPD. Doubt active pneumonia. DISCUSSION: Agree with antibiotics empirically at this point in time. She is currently also on oral prednisone with which I concur. DVT prophylaxis. Continue medications. Cardiology following. Await 2D echo. We will follow carefully. We will also attempt to wean off BiPAP. Ankit Wood M.D. DR: EUGENIO JOB#: [id number] CC:
[2020-02-15 16:00] VITALS: BP 113/78
--- NOTE | 2020-02-15 16:38 | General Progress Note ---
Assessment/Plan Status: doing well, stable, progressing Assessment/Plan: Ms. Lenz is a 69 year old female current smoker, HTN, presenting with COPD exacerbation, also found to have NSTEMI. #COPD Exacerbation #Asthma exacerbation #Suspected CAP #Current smoker #Respiratory alkalosis - on ABG -s/p solumedrol 125 mg x1, continue pred 40 mg (02/13 -) -pulmonology consult appreciated. -ID consult appreciated. -duonebs ATC -Continue ceftriaxone/azithro (02/12- ) -CXR without definitive infiltrate -Smoking cessation provided. She says she will quit smoking after this hospitalization. #Acute UTI Asymptomatic. -Continue ceftriaxone as above. #Hypernatremia - resolved -Nephrology following -s/p 1/2 NS per nephro -Trend BMP #NSTEMI -Cardiology consult appreciated -heparin gtt (02/13 -) -Will need stress test -Trop peak 1.086 -ASA 325 mg x1, continue ASA 81 -Lipitor 10 #Severe systolic heart failure, chronic #Mild pulmonary hypertension #Moderate mitral regurgitation #Mild aortic regurgitation EF of 15-20% with above findings on TTE (02/15/2020). Does not seem overtly overloaded on exam. -Consider lasix -Cardiology following. -Check BNP tmrw AM. Time spent: 36 mins, >50% on counseling, coordination of care. Time of note doesn't reflect time of encounter. Subjective Date patient seen: Feb 15, 2020 Constitutional: Denies: no symptoms, chills, diaphoresis, fever, malaise, weakness, other HEENT: Denies: no symptoms, eye pain, blurred vision, tearing, double vision, ear pain, ear discharge, nose pain, nose congestion, throat pain, throat swelling, mouth pain, mouth swelling, other Cardiovascular: Denies: no symptoms, chest pain, edema, irregular heart rate, lightheadedness, palpitations, syncope, other Respiratory: Denies: no symptoms, cough, orthopnea, shortness of breath, SOB with excertion, SOB at rest, sputum, stridor, wheezing, other Gastrointestinal/Abdominal: Denies: no symptoms, abdomen distended, abdominal pain, black stools, tarry stools, blood in stool, constipated, diarrhea, difficulty swallowing, nausea, poor appetite, poor fluid intake, rectal bleeding , vomiting, other Genitourinary: Denies: no symptoms, burning, discharge, frequency, flank pain, hematuria, incontinence, pain, urgency, other Neurologic/Psychiatric: Denies: no symptoms, anxiety, depressed, emotional problems, headache, numbness, paresthesia, pre-existing deficit, seizure, tingling, tremors, weakness, other Endocrine: Denies: no symptoms, excessive sweating, flushing, intolerance to cold, intolerance to heat, increased hunger, increased thirst, increased urine, unexplained weight gain, unexplained weight loss, other Hematologic/Lymphatic: Denies: no symptoms, anemia, easy bleeding, easy bruising, other Allergies: Coded Allergies: No Known Allergies (Unverified , 01/22/15) Subjective Resting in bed, breathing much better. no more wheezing. denies current and prior chest pain. no other issues. plan of care explained. agreeable. Objective Last 24 Hour Vital Signs Date Time Temp Pulse Resp B/P (MAP) Pulse Ox O2 Delivery O2 Flow Rate FiO2 02/15/20 16:00 98.1 120 20 113/78 (90) 96 02/15/20 12:00 97.8 112 20 121/81 (94) 98 02/15/20 12:00 2.0 02/15/20 12:00 124 02/15/20 12:00 Bi-pap 02/15/20 11:35 126 35 97 30 02/15/20 09:52 116/85 02/15/20 08:00 97.0 121 24 116/85 (95) 97 02/15/20 08:00 116 02/15/20 08:00 30 02/15/20 08:00 Bi-pap 02/15/20 07:07 97 Bi-Pap 30 02/15/20 07:07 122 33 97 30 02/15/20 05:05 2.0 02/15/20 04:00 108 02/15/20 04:00 30 02/15/20 04:00 Bi-pap 02/15/20 04:00 98.0 109 24 122/85 (97) 96 02/15/20 02:46 110 32 98 30 02/15/20 00:57 123 39 96 30 02/15/20 00:00 Bi-pap 02/15/20 00:00 30 02/15/20 00:00 98.4 118 24 139/75 (96) 98 02/14/20 23:23 111 02/14/20 23:15 111 23 98 30 02/14/20 20:50 125 41 97 30 02/14/20 20:00 Bi-pap 02/14/20 20:00 30 02/14/20 20:00 97.9 115 22 101/58 (72) 96 02/14/20 19:24 130 02/14/20 19:09 99 Bi-Pap 30 02/14/20 18:57 98 32 100 30 Intake and Output 02/14/20 02/15/20 19:00 07:00 Intake Total 491.850 ml 518.646 ml Output Total 400 ml Balance 91.850 ml 518.646 ml Intake Oral 420 ml IV Total 71.850 ml 518.646 ml Output Urine Total 400 ml # Voids 3 # Bowel Movements 2 1 Laboratory Tests 02/14/20 19:30: Activated Partial Thromboplast Time 88H 02/15/20 03:45: Activated Partial Thromboplast Time 51H, Erythrocyte Sedimentation Rate 20, Sodium Level 143, Potassium Level 4.3, Chloride Level 108H, Carbon Dioxide Level 21, Anion Gap 14, Blood Urea Nitrogen 17, Creatinine 0.9, Estimat Glomerular Filtration Rate > 60, Glucose Level 133H, Calcium Level 9.0, Phosphorus Level 2.3L, Magnesium Level 1.6L, C-Reactive Protein, Quantitative 1.2H, Amylase Level 53, Lipase 79 02/15/20 10:26: Arterial Blood pH 7.518H, Arterial Blood Partial Pressure CO2 29.9L, Arterial Blood Partial Pressure O2 141.2H, Arterial Blood HCO3 23.8, Arterial Blood Oxygen Saturation 98.9, Arterial Blood Base Excess 1.7, Rishabh Test Positive 02/15/20 12:00: Activated Partial Thromboplast Time 51H Height (Feet): 5 Height (Inches): 4.00 Weight (Pounds): 110 General Appearance: no apparent distress, alert Neck: supple Cardiovascular: normal rate, regular rhythm Respiratory/Chest: lungs clear, normal breath sounds Abdomen: non tender, soft Neurologic: alert, oriented x 3 Marion Farias M.D. Feb 15, 2020 16:38
[2020-02-15 20:00] VITALS: BP 113/78
[2020-02-15] MEDS ORDERED: Heparin 5000 units/ml inj SUBQ SCH (21:00)
[2020-02-15] MEDS: Heparin 5000 units/ml inj SUBQ SCH (21:00)
[2020-02-15] MEDS: cefTRIAXone 1 GM in D5W 55 ML IVPB SCH (21:42)
[2020-02-15] MEDS ORDERED: Azithromycin 250 MG in D5W 275 ML IV SCH (23:00)
[2020-02-16] VITALS: BP 110/56
[2020-02-16 04:00] VITALS: BP 118/81
[2020-02-16 08:00] VITALS: BP 102/73
[2020-02-16] MEDS: Heparin 5000 units/ml inj SUBQ SCH ×3 (09:00→20:56)
--- NOTE | 2020-02-16 09:00 | Cardiology Progress Note ---
Assessment/Plan Status: stable Assessment/Plan Assessment/Plan Ms. Lenz is a 69 year old female current smoker, HTN, presenting with COPD exacerbation, also found to have NSTEMI. -Serial EKG/Troponin -Echocardiogram reviewed LVEF 15-20% -Hold heparin -Aspirin -Statin -Lisinopril/coreg for heart failure -Stress test prior to d/c -Nitro prn chest pain -Will need life vest for primary prevention SCA arrhythmias Subjective Cardiovascular: Reports: no symptoms Respiratory: Reports: no symptoms Gastrointestinal/Abdominal: Reports: no symptoms Genitourinary: Reports: no symptoms Subjective No acute events, no chest pain. TTE LVEF 15-20% moderate MR PAP pressure 50 Objective Last 24 Hour Vital Signs Date Time Temp Pulse Resp B/P (MAP) Pulse Ox O2 Delivery O2 Flow Rate FiO2 02/16/20 08:00 97.6 83 20 102/73 (83) 100 02/16/20 04:00 Nasal Cannula 2.0 02/16/20 04:00 141 02/16/20 04:00 2.0 02/16/20 04:00 96.3 138 24 118/81 (93) 94 02/16/20 00:00 97.9 129 24 110/56 (74) 94 02/16/20 00:00 Nasal Cannula 2.0 02/15/20 21:00 2.0 02/15/20 20:00 139 02/15/20 20:00 98.8 130 24 113/78 (90) 96 02/15/20 20:00 Nasal Cannula 2.0 02/15/20 19:50 95 Nasal Cannula 2.0 28 02/15/20 16:00 Bi-pap 02/15/20 16:00 98.1 120 20 113/78 (90) 96 02/15/20 16:00 2.0 02/15/20 16:00 129 02/15/20 12:00 97.8 112 20 121/81 (94) 98 02/15/20 12:00 2.0 02/15/20 12:00 124 02/15/20 12:00 Bi-pap 02/15/20 11:35 126 35 97 30 02/15/20 09:52 116/85 General Appearance: no apparent distress, alert EENT: PERRL/EOMI, normal ENT inspection, TMs normal, pharynx normal Neck: non-tender, normal alignment, supple, normal inspection, no JVD Rhythm: NSR Cardiovascular: normal peripheral pulses, normal rate, regular rhythm, gallop/ S3, gallop/S4 Respiratory/Chest: chest wall non-tender, lungs clear Abdomen: normal bowel sounds, non tender, soft, no organomegaly, no mass Extremities: normal range of motion, non-tender, normal inspection, no calf tenderness, no swelling 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, no motor/sensory deficits Intake and Output 02/15/20 02/16/20 19:00 07:00 Intake Total 69.855 ml 143 ml Balance 69.855 ml 143 ml IV Total 69.855 ml 143 ml # Voids 3 3 # Bowel Movements 3 Laboratory Tests Test 02/15/20 10:26 02/15/20 12:00 Arterial Blood pH 7.518 (7.350-7.450) Arterial Blood Partial Pressure CO2 29.9 mmHg (35.0-45.0) L Arterial Blood Partial Pressure O2 141.2 mmHg (75.0-100.0) H Arterial Blood HCO3 23.8 mmol/L (22.0-26.0) Arterial Blood Oxygen Saturation 98.9 % (95-100) Arterial Blood Base Excess 1.7 (-2-2) Rishabh Test Positive Activated Partial Thromboplast Time 51 SEC (23-33) H Microbiology Date/Time Source Procedure Growth Status 02/13/20 21:40 Blood Blood Culture - Preliminary NO GROWTH AFTER 48 HOURS Resulted 02/13/20 21:25 Blood Blood Culture - Preliminary NO GROWTH AFTER 48 HOURS Resulted 02/13/20 22:10 Nasal Nares - Final Complete 02/13/20 22:10 Nasal Nares - Final Complete 02/14/20 17:36 Stool Clostridium difficile Toxin Assay - Final Complete 02/13/20 23:01 Urine,Clean Catch Urine Culture - Final Escherichia Coli Complete Thierry Crawford MD Feb 16, 2020 09:00
[2020-02-16] MEDS: Aspirin Baby 81mg ORAL SCH (09:01)
[2020-02-16] MEDS: Ascorbic Acid 500mg tab ORAL SCH (09:02)
[2020-02-16] MEDS: Lisinopril 10mg tab ORAL SCH (09:03)
--- NOTE | 2020-02-16 09:03 | Pulmonology Progress Note ---
Assessment/Plan Assessment/Plan IMPRESSION: 1. Pulmonary edema. 2. Exacerbation of COPD. Doubt active pneumonia. DISCUSSION: Agree with antibiotics empirically at this point in time. She is currently also on oral prednisone with which I concur. DVT prophylaxis. Continue medications. Cardiology following. Reviewed 2D echo. I will follow carefully. Nasal O2 Pulmonary hygiene Ankit Wood M.D. Subjective Interval Events: Off BiPAP; on 2L/min O2 Constitutional: Reports: no symptoms HEENT: Repors: no symptoms Respiratory: Reports: shortness of breath Cardiovascular: Reports: no symptoms Gastrointestinal/Abdominal: Reports: no symptoms Genitourinary: Reports: no symptoms Allergies: Coded Allergies: No Known Allergies (Unverified , 01/22/15) Objective Last 24 Hour Vital Signs Date Time Temp Pulse Resp B/P (MAP) Pulse Ox O2 Delivery O2 Flow Rate FiO2 02/16/20 08:00 97.6 83 20 102/73 (83) 100 02/16/20 04:00 Nasal Cannula 2.0 02/16/20 04:00 141 02/16/20 04:00 2.0 02/16/20 04:00 96.3 138 24 118/81 (93) 94 02/16/20 00:00 97.9 129 24 110/56 (74) 94 02/16/20 00:00 Nasal Cannula 2.0 02/15/20 21:00 2.0 02/15/20 20:00 139 02/15/20 20:00 98.8 130 24 113/78 (90) 96 02/15/20 20:00 Nasal Cannula 2.0 02/15/20 19:50 95 Nasal Cannula 2.0 28 02/15/20 16:00 Bi-pap 02/15/20 16:00 98.1 120 20 113/78 (90) 96 02/15/20 16:00 2.0 02/15/20 16:00 129 02/15/20 12:00 97.8 112 20 121/81 (94) 98 02/15/20 12:00 2.0 02/15/20 12:00 124 02/15/20 12:00 Bi-pap 02/15/20 11:35 126 35 97 30 02/15/20 09:52 116/85 Intake and Output 02/15/20 02/16/20 19:00 07:00 Intake Total 69.855 ml 143 ml Balance 69.855 ml 143 ml IV Total 69.855 ml 143 ml # Voids 3 3 # Bowel Movements 3 General Appearance: no acute distress HEENT: normocephalic Respiratory/Chest: chest wall non-tender, decreased breath sounds Cardiovascular: normal peripheral pulses Abdomen: soft, non tender Microbiology Date/Time Source Procedure Growth Status 02/13/20 21:40 Blood Blood Culture - Preliminary NO GROWTH AFTER 48 HOURS Resulted 02/13/20 21:25 Blood Blood Culture - Preliminary NO GROWTH AFTER 48 HOURS Resulted 02/13/20 22:10 Nasal Nares - Final Complete 02/13/20 22:10 Nasal Nares - Final Complete 02/14/20 17:36 Stool Clostridium difficile Toxin Assay - Final Complete 02/13/20 23:01 Urine,Clean Catch Urine Culture - Final Escherichia Coli Complete Laboratory Tests 02/15/20 10:26: Arterial Blood pH 7.518H, Arterial Blood Partial Pressure CO2 29.9L, Arterial Blood Partial Pressure O2 141.2H, Arterial Blood HCO3 23.8, Arterial Blood Oxygen Saturation 98.9, Arterial Blood Base Excess 1.7, Rishabh Test Positive 02/15/20 12:00: Activated Partial Thromboplast Time 51H Current Medications Medications (Trade) Dose Ordered Sig/Samanta Route PRN Reason Start Time Stop Time Status Last Admin Dose Admin Ascorbic Acid (Vitamin C) 500 mg DAILY ORAL 02/16/20 09:00 03/15/20 08:59 Aspirin (ASA) 81 mg DAILY ORAL 02/16/20 09:00 03/30/20 08:59 Atorvastatin Calcium (Lipitor) 10 mg BEDTIME ORAL 02/15/20 21:00 03/15/20 20:59 02/15/20 21:39 Carvedilol (Coreg) 3.125 mg EVERY 12 HOURS ORAL 02/16/20 09:00 03/17/20 08:59 UNV Ceftriaxone Sodium 1 gm/ Dextrose 55 ml @ 110 mls/hr Q24H IVPB 02/15/20 22:00 02/21/20 21:59 02/15/20 21:42 Heparin Sodium (Porcine) (Heparin 5000 units/ml) 5,000 units EVERY 12 HOURS SUBQ 02/15/20 21:00 03/31/20 20:59 Lisinopril (ZestriL) 10 mg DAILY ORAL 02/16/20 09:00 03/15/20 08:59 Prednisone (predniSONE) 40 mg DAILY ORAL 02/16/20 09:00 02/18/20 09:01 Ankit Wood MD Feb 16, 2020 09:03
--- NOTE | 2020-02-16 11:23 | Nephrology Progress Note ---
Assessment/Plan Plan #Hypernatremia #Sepsis #lactic acidosis #Pneumonia/COPD exacerbation #Tropnemia #hyperglycemia - pulm consulted - ID consulted - Bipap prn - abx - steroid - trend trop - cardiology consult - continue lisinopril 10mg - continue coreg 3.125mg BID - monitor BMP - trend lactic acid- improved Subjective Subjective Breathing stable sodium improved heparin drip held tolerating abx EF low started on coreg and lisinorpil Objective Objective Last 24 Hour Vital Signs Date Time Temp Pulse Resp B/P (MAP) Pulse Ox O2 Delivery O2 Flow Rate FiO2 02/16/20 09:11 83 157/97 02/16/20 09:03 157/97 02/16/20 08:00 97.6 83 20 102/73 (83) 100 02/16/20 08:00 129 02/16/20 08:00 Nasal Cannula 3.0 02/16/20 08:00 2.0 02/16/20 04:00 Nasal Cannula 2.0 02/16/20 04:00 141 02/16/20 04:00 2.0 02/16/20 04:00 96.3 138 24 118/81 (93) 94 02/16/20 00:00 97.9 129 24 110/56 (74) 94 02/16/20 00:00 Nasal Cannula 2.0 02/15/20 21:00 2.0 02/15/20 20:00 139 02/15/20 20:00 98.8 130 24 113/78 (90) 96 02/15/20 20:00 Nasal Cannula 2.0 02/15/20 19:50 95 Nasal Cannula 2.0 28 02/15/20 16:00 Bi-pap 02/15/20 16:00 98.1 120 20 113/78 (90) 96 02/15/20 16:00 2.0 02/15/20 16:00 129 02/15/20 12:00 97.8 112 20 121/81 (94) 98 02/15/20 12:00 2.0 02/15/20 12:00 124 02/15/20 12:00 Bi-pap 02/15/20 11:35 126 35 97 30 Intake and Output 02/15/20 02/16/20 19:00 07:00 Intake Total 69.855 ml 143 ml Balance 69.855 ml 143 ml IV Total 69.855 ml 143 ml # Voids 3 3 # Bowel Movements 3 Laboratory Tests 02/15/20 12:00: Activated Partial Thromboplast Time 51H 02/16/20 09:50: Pro-B-Type Natriuretic Peptide [id number] Height (Feet): 5 Height (Inches): 4.00 Weight (Pounds): 110 Objective General Appearance: WD/WN, no apparent distress HEENT: normocephalic, atraumatic Neck: non-tender Respiratory/Chest: expiratory wheezing Cardiovascular/Chest: normal peripheral pulses, normal rate, regular rhythm Abdomen: non tender, soft, no organomegaly Neurologic: alert, oriented x 3 Michael Swanson M.D. Feb 16, 2020 11:23
[2020-02-16 12:00] VITALS: BP 133/81
--- NOTE | 2020-02-16 12:55 | Surgery Progress Note ---
Surgery Progress Note Subjective Additional Comments downgraded comfortable no n/v/f/c labs improved kub noted Objective Last 24 Hour Vital Signs Date Time Temp Pulse Resp B/P (MAP) Pulse Ox O2 Delivery O2 Flow Rate FiO2 02/16/20 12:00 98.6 109 19 133/81 (98) 97 02/16/20 09:11 83 157/97 02/16/20 09:03 157/97 02/16/20 08:00 97.6 83 20 102/73 (83) 100 02/16/20 08:00 129 02/16/20 08:00 Nasal Cannula 3.0 02/16/20 08:00 2.0 02/16/20 04:00 Nasal Cannula 2.0 02/16/20 04:00 141 02/16/20 04:00 2.0 02/16/20 04:00 96.3 138 24 118/81 (93) 94 02/16/20 00:00 97.9 129 24 110/56 (74) 94 02/16/20 00:00 Nasal Cannula 2.0 02/15/20 21:00 2.0 02/15/20 20:00 139 02/15/20 20:00 98.8 130 24 113/78 (90) 96 02/15/20 20:00 Nasal Cannula 2.0 02/15/20 19:50 95 Nasal Cannula 2.0 28 02/15/20 16:00 Bi-pap 02/15/20 16:00 98.1 120 20 113/78 (90) 96 02/15/20 16:00 2.0 02/15/20 16:00 129 I&O Intake and Output 02/15/20 02/16/20 19:00 07:00 Intake Total 69.855 ml 143 ml Balance 69.855 ml 143 ml IV Total 69.855 ml 143 ml # Voids 3 3 # Bowel Movements 3 Dressing: other Wound: other Drains: other Cardiovascular: RSR Respiratory: clear Abdomen: soft, non-tender, present bowel sounds Extremities: no edema, no tenderness, no cyanosis Laboratory Tests Test 02/16/20 09:50 Pro-B-Type Natriuretic Peptide 42309 pg/mL (0-125) H Plan Problems: (1) Lactic acidosis Assessment & Plan: Lactic acidosis secondary to likely dehydration as patient has not been taking much oral intake as she feels discomfort in her chest and throat as she eats. States she is feeling little bit better now unable to take in a little bit more liquids. Currently no nausea vomiting fever chills. Passing flatus. Bowel movement. IV hydration. Unlikely ischemic bowel given examination. Hold on imaging. (2) Abdominal pain Assessment & Plan: Patient with abdominal discomfort and severe lactic acidosis concerning for possible bowel etiology. On examination abdomen soft nontender nondistended mild discomfort with deep palpation but unlikely to have low flow. Okay for diet. Will follow with exam. Trend labs. Comparison: none Findings: Bowel gas pattern is unremarkable. No masses or unusual calcifications. The bones are unremarkable Impression: Negative (3) Dysphasia Assessment & Plan: Patient states discomfort with eating feels it in the throat and chest. States resolving and improved with liquids at this time. Continue with diet. Monitor closely (4) Respiratory distress Assessment & Plan: Study limited to single portable AP chest radiograph. At least mild cardiomegaly. There is tortuosity/ectasia of the thoracic aorta. Overlying artifact in the right costophrenic angle region. Negative for focal consolidation, pneumothorax or pleural fluid collections. Recommend upright PA and lateral views of the chest when clinically feasible. Aftab Elmore Feb 16, 2020 12:55
--- NOTE | 2020-02-16 15:12 | General Progress Note ---
Assessment/Plan Status: stable Assessment/Plan: Ms. Lenz is a 69 year old female current smoker, HTN, presenting with COPD exacerbation, also found to have NSTEMI. A-#Acute hypoxic respiratory failure, POA #COPD Exacerbation #Asthma exacerbation #Suspected CAP #Current smoker #Respiratory alkalosis - on ABG -s/p solumedrol 125 mg x1, continue pred 40 mg (02/13 -) -pulmonology following -ID following -duonebs ATC -Continue ceftriaxone/azithro (02/12- ) -CXR without definitive infiltrate -Smoking cessation provided #Acute UTI Asymptomatic. -On ceftriaxone #Hypernatremia - resolved -Nephrology following -s/p 1/2 NS per nephro -Trend BMP #NSTEMI -Cardiology following -heparin gtt stopped after 48 hours -Will need stress test -Trop peak 1.086 -continue ASA 81 -Lipitor 10 #Severe systolic heart failure, chronic #Mild pulmonary hypertension #Moderate mitral regurgitation #Mild aortic regurgitation -Lisinopril/coreg for heart failure -Stress test prior to d/c -Nitro prn chest pain -Will need life vest for primary prevention SCA arrhythmias Time spent on encounter: 35 mins, >50% on pt counseling, coordination of care. I spent an additional 35 minutes on review of medical records including prior outside hospital records, consult notes, progress notes, procedures, imaging, labs, hemodynamics, and other clinical documentation. Time of note doesn't reflect time of encounter. Subjective Date patient seen: Feb 16, 2020 Time patient seen: 14:00 ROS Limited/Unobtainable: No Constitutional: Denies: chills, fever Cardiovascular: Denies: chest pain, edema Respiratory: Reports: cough; Denies: orthopnea, shortness of breath, SOB with excertion Gastrointestinal/Abdominal: Denies: abdomen distended, abdominal pain, nausea Genitourinary: Denies: burning Allergies: Coded Allergies: No Known Allergies (Unverified , 01/22/15) Subjective Follow up for acute hypoxic resp failure, pulm edema, asthma exacerbation Feeling better today, walking in halls, remains on supplemental oxygen. Objective Last 24 Hour Vital Signs Date Time Temp Pulse Resp B/P (MAP) Pulse Ox O2 Delivery O2 Flow Rate FiO2 02/16/20 12:00 2.0 02/16/20 12:00 98.6 109 19 133/81 (98) 97 02/16/20 12:00 125 02/16/20 09:11 83 157/97 02/16/20 09:03 157/97 02/16/20 08:00 97.6 83 20 102/73 (83) 100 02/16/20 08:00 129 02/16/20 08:00 Nasal Cannula 3.0 02/16/20 08:00 2.0 02/16/20 04:00 Nasal Cannula 2.0 02/16/20 04:00 141 02/16/20 04:00 2.0 02/16/20 04:00 96.3 138 24 118/81 (93) 94 02/16/20 00:00 97.9 129 24 110/56 (74) 94 02/16/20 00:00 Nasal Cannula 2.0 02/15/20 21:00 2.0 02/15/20 20:00 139 02/15/20 20:00 98.8 130 24 113/78 (90) 96 02/15/20 20:00 Nasal Cannula 2.0 02/15/20 19:50 95 Nasal Cannula 2.0 28 02/15/20 16:00 Bi-pap 02/15/20 16:00 98.1 120 20 113/78 (90) 96 02/15/20 16:00 2.0 02/15/20 16:00 129 Intake and Output 02/15/20 02/16/20 19:00 07:00 Intake Total 69.855 ml 143 ml Balance 69.855 ml 143 ml IV Total 69.855 ml 143 ml # Voids 3 3 # Bowel Movements 3 Laboratory Tests 02/16/20 09:50: Pro-B-Type Natriuretic Peptide [id number] Height (Feet): 5 Height (Inches): 4.00 Weight (Pounds): 110 General Appearance: no apparent distress, alert Neck: normal alignment, supple Cardiovascular: normal rate, regular rhythm Respiratory/Chest: lungs clear, normal breath sounds, no respiratory distress, no accessory muscle use Abdomen: non tender, soft, no organomegaly Luis Eduardo Taylor MD Feb 16, 2020 15:12
[2020-02-16 16:00] VITALS: BP 137/88
--- NOTE | 2020-02-16 16:12 | Infectious Diseases Prog Note ---
Assessment/Plan Assessment/Plan ASSESSMENT AND PLAN: 1. e.coli uti, uri/bronchitis, chest x-ray - negative for pna - ceftriaxone - day # 3 abx - can transition to oral ceftin x 5 days - d/w Dr. Milan - clinically improved - monitor labs 2. Chronic obstructive pulmonary disease exacerbation. The patient is on steroids and continue breathing treatments. 3. History of TIA. 4. COPD. 5. CVA. 6. Weakness on right side. 7. Embolic cva 8. History of dysphagia also. 9. Hypertension. 10. Hypernatremia. 11. Non-STEMI. 12. CAD. 13. No known drug allergies. 14. Social history is negative. 15. Family history is noncontributory. 16. MAR is noted. 17. Case discussed with RN. 18. Continue treatment per primary consultants. 19. Orders were noted and entered. Subjective Constitutional: Reports: fatigue; Denies: fever HEENT: Denies: congestion Respiratory: Denies: shortness of breath Cardiovascular: Denies: chest pain Gastrointestinal/Abdominal: Denies: nausea, vomiting, diarrhea Genitourinary: Reports: dysuria - less, frequency - less, other - no rea ; Denies: hematuria - l Neurologic: Denies: headache Psychiatric: Denies: depression Skin: Denies: rash Hematologic: Denies: bleeding Musculoskeletal: Denies: pain Allergies: Coded Allergies: No Known Allergies (Unverified , 01/22/15) Objective Vital Signs Last 24 Hour Vital Signs Date Time Temp Pulse Resp B/P (MAP) Pulse Ox O2 Delivery O2 Flow Rate FiO2 02/16/20 12:00 2.0 02/16/20 12:00 98.6 109 19 133/81 (98) 97 02/16/20 12:00 125 02/16/20 09:11 83 157/97 02/16/20 09:03 157/97 02/16/20 08:00 97.6 83 20 102/73 (83) 100 02/16/20 08:00 129 02/16/20 08:00 Nasal Cannula 3.0 02/16/20 08:00 2.0 02/16/20 04:00 Nasal Cannula 2.0 02/16/20 04:00 141 02/16/20 04:00 2.0 02/16/20 04:00 96.3 138 24 118/81 (93) 94 02/16/20 00:00 97.9 129 24 110/56 (74) 94 02/16/20 00:00 Nasal Cannula 2.0 02/15/20 21:00 2.0 02/15/20 20:00 139 02/15/20 20:00 98.8 130 24 113/78 (90) 96 02/15/20 20:00 Nasal Cannula 2.0 02/15/20 19:50 95 Nasal Cannula 2.0 28 02/15/20 16:00 Bi-pap 02/15/20 16:00 98.1 120 20 113/78 (90) 96 02/15/20 16:00 2.0 02/15/20 16:00 129 Height (Feet): 5 Height (Inches): 4.00 Weight (Pounds): 110 General Appearance: no acute distress HEENT: normocephalic, atraumatic, anicteric, mucous membranes moist, PERRL Respiratory/Chest: lungs clear, normal breath sounds, no respiratory distress, no accessory muscle use Cardiovascular: normal rate, regular rhythm, no gallop/murmur, no JVD Abdomen: normal bowel sounds, soft, non tender, no organomegaly, non distended Genitourinary: other - no rea Extremities: no cyanosis Skin: no rash 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 Indication: Shortness of breath Technique: One view of the chest Comparison: 02/13/2020 Findings: The heart is enlarged. The lungs and pleural spaces are clear. The aorta is tortuous and calcified. No significant interim change Impression: Unchanged, over one day, findings as above.. Cardiomegaly. No acute process Microbiology Date/Time Source Procedure Growth Status 02/13/20 21:40 Blood Blood Culture - Preliminary NO GROWTH AFTER 48 HOURS Resulted 02/13/20 21:25 Blood Blood Culture - Preliminary NO GROWTH AFTER 48 HOURS Resulted 02/13/20 22:10 Nasal Nares - Final Complete 02/13/20 22:10 Nasal Nares - Final Complete 02/14/20 17:36 Stool Clostridium difficile Toxin Assay - Final Complete 02/13/20 23:01 Urine,Clean Catch Urine Culture - Final Escherichia Coli Complete Laboratory Tests Test 02/16/20 09:50 Pro-B-Type Natriuretic Peptide 39648 pg/mL (0-125) H wbc - 7.5 hgb - 13.3 cr - 0.9 Current Medications Medications (Trade) Dose Ordered Sig/Samanta Route PRN Reason Start Time Stop Time Status Last Admin Dose Admin Ascorbic Acid (Vitamin C) 500 mg DAILY ORAL 02/16/20 09:00 03/15/20 08:59 02/16/20 09:02 Aspirin (ASA) 81 mg DAILY ORAL 02/16/20 09:00 03/30/20 08:59 02/16/20 09:01 Atorvastatin Calcium (Lipitor) 10 mg BEDTIME ORAL 02/15/20 21:00 03/15/20 20:59 02/15/20 21:39 Carvedilol (Coreg) 3.125 mg EVERY 12 HOURS ORAL 02/16/20 09:00 03/17/20 08:59 02/16/20 09:11 Ceftriaxone Sodium 1 gm/ Dextrose 55 ml @ 110 mls/hr Q24H IVPB 02/15/20 22:00 02/21/20 21:59 02/15/20 21:42 Heparin Sodium (Porcine) (Heparin 5000 units/ml) 5,000 units EVERY 12 HOURS SUBQ 02/15/20 21:00 03/31/20 20:59 Lisinopril (ZestriL) 10 mg DAILY ORAL 02/16/20 09:00 03/15/20 08:59 02/16/20 09:03 Prednisone (predniSONE) 40 mg DAILY ORAL 02/16/20 09:00 02/18/20 09:01 02/16/20 09:02 Solomon Osei MD Feb 16, 2020 16:12
[2020-02-16 20:00] VITALS: BP 119/71
[2020-02-16] MEDS: cefTRIAXone 1 GM in D5W 55 ML IVPB SCH (20:57)
[2020-02-17 04:00] VITALS: BP 149/94
[2020-02-17 06:35] LABS: EOSINOPHILS % (AUTO) 0.1 % (0.0-3.0); HEMATOCRIT 34.1 % (37.0-47.0); HEMOGLOBIN 11.6 G/DL (12.0-16.0); LYMPHOCYTES % (AUTO) 19.8 % (20.0-45.0); MEAN CORPUSCULAR VOLUME 91 FL (80-99); MONOCYTES % (AUTO) 5.9 % (1.0-10.0); NEUTROPHILS % (AUTO) 73.2 % (45.0-75.0); PLATELET COUNT 123 K/UL (150-450); RED BLOOD COUNT 3.74 M/UL (4.20-5.40); RED CELL DISTRIBUTION WIDTH 12.9 % (11.6-14.8); WHITE BLOOD COUNT 12.8 K/UL (4.8-10.8)
[2020-02-17 06:58] LABS: ANION GAP 5 mmol/L (5-15); BLOOD UREA NITROGEN 21 mg/dL (7-18); CALCIUM 8.8 MG/DL (8.5-10.1); CARBON DIOXIDE 30 MMOL/L (21-32); CHLORIDE 107 MMOL/L (98-107); CREATININE 0.9 MG/DL (0.55-1.30); PHOSPHORUS 1.7 MG/DL (2.5-4.9); POTASSIUM 4.2 MMOL/L (3.5-5.1); SODIUM 141 MMOL/L (136-145)
[2020-02-17 08:00] VITALS: BP 123/60
[2020-02-17] MEDS: Lisinopril 10mg tab ORAL SCH (08:23)
[2020-02-17] MEDS: Ascorbic Acid 500mg tab ORAL SCH (08:23)
[2020-02-17] MEDS: Heparin 5000 units/ml inj SUBQ SCH ×2 (08:24→22:20)
[2020-02-17] MEDS: Aspirin Baby 81mg ORAL SCH (08:24)
--- NOTE | 2020-02-17 09:34 | Pulmonology Progress Note ---
Assessment/Plan Assessment/Plan IMPRESSION: 1. Pulmonary edema. 2. Exacerbation of COPD. Doubt active pneumonia. DISCUSSION: Agree with antibiotics and steroids. DVT prophylaxis. Continue medications. Cardiology following. Reviewed 2D echo. I will follow carefully. Nasal O2 Pulmonary hygiene Ankit Wood M.D. Subjective Interval Events: Saturating well on 2L/min O2; WBC 12.8 today Constitutional: Reports: no symptoms HEENT: Repors: no symptoms Respiratory: Reports: no symptoms Cardiovascular: Reports: no symptoms Gastrointestinal/Abdominal: Reports: no symptoms Allergies: Coded Allergies: No Known Allergies (Unverified , 01/22/15) Objective Last 24 Hour Vital Signs Date Time Temp Pulse Resp B/P (MAP) Pulse Ox O2 Delivery O2 Flow Rate FiO2 02/17/20 08:45 95 Nasal Cannula 2.0 28 02/17/20 08:23 98 123/60 02/17/20 08:23 123/60 02/17/20 08:00 100 02/17/20 08:00 96.4 98 18 123/60 (81) 95 02/17/20 08:00 2.0 02/17/20 04:00 2.0 02/17/20 04:00 98.1 110 20 149/94 (112) 97 02/17/20 04:00 90 02/17/20 00:00 2.0 02/17/20 00:00 89 02/16/20 21:00 Nasal Cannula 2.0 02/16/20 20:56 116 145/97 02/16/20 20:28 96 Nasal Cannula 2.0 28 02/16/20 20:00 2.0 02/16/20 20:00 108 02/16/20 20:00 98.1 82 19 119/71 (87) 97 02/16/20 16:00 98.2 106 19 137/88 (104) 97 02/16/20 16:00 2.0 02/16/20 16:00 120 02/16/20 12:00 2.0 02/16/20 12:00 98.6 109 19 133/81 (98) 97 02/16/20 12:00 125 Intake and Output 02/16/20 02/17/20 19:00 07:00 Intake Total 350 ml Balance 350 ml Intake Oral 350 ml # Voids 2 # Bowel Movements 1 1 General Appearance: no acute distress HEENT: normocephalic Respiratory/Chest: chest wall non-tender Cardiovascular: normal peripheral pulses Abdomen: normal bowel sounds Microbiology Date/Time Source Procedure Growth Status 02/14/20 17:36 Stool Clostridium difficile Toxin Assay - Final Complete Laboratory Tests 02/16/20 09:50: Pro-B-Type Natriuretic Peptide 84435H 02/17/20 05:52: White Blood Count 12.8H, Red Blood Count 3.74L, Hemoglobin 11.6L, Hematocrit 34.1L, Mean Corpuscular Volume 91, Mean Corpuscular Hemoglobin 31.1H, Mean Corpuscular Hemoglobin Concent 34.1, Red Cell Distribution Width 12.9, Platelet Count 123L, Mean Platelet Volume 9.3, Neutrophils (%) (Auto) 73.2, Lymphocytes ( %) (Auto) 19.8L, Monocytes (%) (Auto) 5.9, Eosinophils (%) (Auto) 0.1, Basophils (%) (Auto) 1.0, Sodium Level 141, Potassium Level 4.2, Chloride Level 107, Carbon Dioxide Level 30, Anion Gap 5, Blood Urea Nitrogen 21H, Creatinine 0.9, Estimat Glomerular Filtration Rate > 60, Glucose Level 112H, Calcium Level 8.8, Phosphorus Level 1.7L, Magnesium Level 2.0 Current Medications Medications (Trade) Dose Ordered Sig/Samanta Route PRN Reason Start Time Stop Time Status Last Admin Dose Admin Ascorbic Acid (Vitamin C) 500 mg DAILY ORAL 02/16/20 09:00 03/15/20 08:59 02/17/20 08:23 Aspirin (ASA) 81 mg DAILY ORAL 02/16/20 09:00 03/30/20 08:59 02/17/20 08:24 Atorvastatin Calcium (Lipitor) 10 mg BEDTIME ORAL 02/15/20 21:00 03/15/20 20:59 02/16/20 20:56 Carvedilol (Coreg) 3.125 mg EVERY 12 HOURS ORAL 02/16/20 09:00 03/17/20 08:59 02/17/20 08:23 Ceftriaxone Sodium 1 gm/ Dextrose 55 ml @ 110 mls/hr Q24H IVPB 02/15/20 22:00 02/21/20 21:59 02/16/20 20:57 Heparin Sodium (Porcine) (Heparin 5000 units/ml) 5,000 units EVERY 12 HOURS SUBQ 02/15/20 21:00 03/31/20 20:59 Lisinopril (ZestriL) 10 mg DAILY ORAL 02/16/20 09:00 03/15/20 08:59 02/17/20 08:23 Prednisone (predniSONE) 40 mg DAILY ORAL 02/16/20 09:00 02/18/20 09:01 02/17/20 08:23 Ankit Wood MD Feb 17, 2020 09:34
[2020-02-17] MEDS ORDERED: Lexiscan 0.4mg/5ml syringe IV PRN (10:20)
--- NOTE | 2020-02-17 10:21 | Cardiology Progress Note ---
Assessment/Plan Status: stable Assessment/Plan Assessment/Plan Ms. Lenz is a 69 year old female current smoker, HTN, presenting with COPD exacerbation, also found to have NSTEMI. -Serial EKG/Troponin -Echocardiogram reviewed LVEF 15-20% -Hold heparin -Aspirin -Statin -Lisinopril/coreg for heart failure -Stress test prior to d/c - ordered for -Nitro prn chest pain -Will need life vest for primary prevention SCA arrhythmias - ordered -Repeat echo in 3 months Subjective Cardiovascular: Reports: no symptoms Respiratory: Reports: no symptoms Gastrointestinal/Abdominal: Reports: no symptoms Genitourinary: Reports: no symptoms Subjective No acute events, no chest pain. TTE LVEF 15-20% moderate MR PAP pressure 50 Stable on NC, no SOB no complaints, for stress test , life vest ordered Objective Last 24 Hour Vital Signs Date Time Temp Pulse Resp B/P (MAP) Pulse Ox O2 Delivery O2 Flow Rate FiO2 02/17/20 09:00 Nasal Cannula 2.0 02/17/20 08:45 95 Nasal Cannula 2.0 28 02/17/20 08:23 98 123/60 02/17/20 08:23 123/60 02/17/20 08:00 100 02/17/20 08:00 96.4 98 18 123/60 (81) 95 02/17/20 08:00 2.0 02/17/20 04:00 2.0 02/17/20 04:00 98.1 110 20 149/94 (112) 97 02/17/20 04:00 90 02/17/20 00:00 2.0 02/17/20 00:00 89 02/16/20 21:00 Nasal Cannula 2.0 02/16/20 20:56 116 145/97 02/16/20 20:28 96 Nasal Cannula 2.0 28 02/16/20 20:00 2.0 02/16/20 20:00 108 02/16/20 20:00 98.1 82 19 119/71 (87) 97 02/16/20 16:00 98.2 106 19 137/88 (104) 97 02/16/20 16:00 2.0 02/16/20 16:00 120 02/16/20 12:00 2.0 02/16/20 12:00 98.6 109 19 133/81 (98) 97 02/16/20 12:00 125 General Appearance: no apparent distress, alert EENT: PERRL/EOMI, normal ENT inspection, TMs normal, pharynx normal Neck: non-tender, normal alignment, supple, normal inspection, no JVD, abnormal alignment Rhythm: NSR Cardiovascular: normal peripheral pulses, normal rate, regular rhythm, gallop/ S3, gallop/S4 Respiratory/Chest: chest wall non-tender, lungs clear, normal breath sounds Abdomen: normal bowel sounds, non tender, soft, no organomegaly, no mass Extremities: normal range of motion, non-tender, normal inspection, no calf tenderness, no swelling 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, no motor/sensory deficits Intake and Output 02/16/20 02/17/20 19:00 07:00 Intake Total 350 ml Balance 350 ml Intake Oral 350 ml # Voids 2 # Bowel Movements 1 1 Laboratory Tests Test 02/17/20 05:52 White Blood Count 12.8 K/UL (4.8-10.8) H Red Blood Count 3.74 M/UL (4.20-5.40) L Hemoglobin 11.6 G/DL (12.0-16.0) L Hematocrit 34.1 % (37.0-47.0) L Mean Corpuscular Volume 91 FL (80-99) Mean Corpuscular Hemoglobin 31.1 PG (27.0-31.0) H Mean Corpuscular Hemoglobin Concent 34.1 G/DL (32.0-36.0) Red Cell Distribution Width 12.9 % (11.6-14.8) Platelet Count 123 K/UL (150-450) L Mean Platelet Volume 9.3 FL (6.5-10.1) Neutrophils (%) (Auto) 73.2 % (45.0-75.0) Lymphocytes (%) (Auto) 19.8 % (20.0-45.0) L Monocytes (%) (Auto) 5.9 % (1.0-10.0) Eosinophils (%) (Auto) 0.1 % (0.0-3.0) Basophils (%) (Auto) 1.0 % (0.0-2.0) Sodium Level 141 MMOL/L (136-145) Potassium Level 4.2 MMOL/L (3.5-5.1) Chloride Level 107 MMOL/L (98-107) Carbon Dioxide Level 30 MMOL/L (21-32) Anion Gap 5 mmol/L (5-15) Blood Urea Nitrogen 21 mg/dL (7-18) H Creatinine 0.9 MG/DL (0.55-1.30) Estimat Glomerular Filtration Rate > 60 mL/min (>60) Glucose Level 112 MG/DL (74-106) H Calcium Level 8.8 MG/DL (8.5-10.1) Phosphorus Level 1.7 MG/DL (2.5-4.9) L Magnesium Level 2.0 MG/DL (1.8-2.4) Microbiology Date/Time Source Procedure Growth Status 02/14/20 17:36 Stool Clostridium difficile Toxin Assay - Final Complete FilsoThierry mack MD Feb 17, 2020 10:21
--- NOTE | 2020-02-17 11:07 | Nephrology Progress Note ---
Assessment/Plan Plan #Hypernatremia #Sepsis #lactic acidosis #Pneumonia/COPD exacerbation #Tropnemia #hyperglycemia - pulm consulted - ID consulted - Bipap prn - abx - steroid - trend trop - cardiology consult - continue lisinopril 20mg - continue coreg 6.25mg BID - lasix 40mg daily - monitor BMP - replete phos - trend lactic acid- improved Subjective Subjective Breathing stable EF low will increase coreg and lisinopril dose start lasix 40mg daily Objective Objective Last 24 Hour Vital Signs Date Time Temp Pulse Resp B/P (MAP) Pulse Ox O2 Delivery O2 Flow Rate FiO2 02/17/20 09:00 Nasal Cannula 2.0 02/17/20 08:45 95 Nasal Cannula 2.0 28 02/17/20 08:23 98 123/60 02/17/20 08:23 123/60 02/17/20 08:00 100 02/17/20 08:00 96.4 98 18 123/60 (81) 95 02/17/20 08:00 2.0 02/17/20 04:00 2.0 02/17/20 04:00 98.1 110 20 149/94 (112) 97 02/17/20 04:00 90 02/17/20 00:00 2.0 02/17/20 00:00 89 02/16/20 21:00 Nasal Cannula 2.0 02/16/20 20:56 116 145/97 02/16/20 20:28 96 Nasal Cannula 2.0 28 02/16/20 20:00 2.0 02/16/20 20:00 108 02/16/20 20:00 98.1 82 19 119/71 (87) 97 02/16/20 16:00 98.2 106 19 137/88 (104) 97 02/16/20 16:00 2.0 02/16/20 16:00 120 02/16/20 12:00 2.0 02/16/20 12:00 98.6 109 19 133/81 (98) 97 02/16/20 12:00 125 Intake and Output 02/16/20 02/17/20 19:00 07:00 Intake Total 350 ml Balance 350 ml Intake Oral 350 ml # Voids 2 # Bowel Movements 1 1 Laboratory Tests 02/17/20 05:52: White Blood Count 12.8H, Red Blood Count 3.74L, Hemoglobin 11.6L, Hematocrit 34.1L, Mean Corpuscular Volume 91, Mean Corpuscular Hemoglobin 31.1H, Mean Corpuscular Hemoglobin Concent 34.1, Red Cell Distribution Width 12.9, Platelet Count 123L, Mean Platelet Volume 9.3, Neutrophils (%) (Auto) 73.2, Lymphocytes ( %) (Auto) 19.8L, Monocytes (%) (Auto) 5.9, Eosinophils (%) (Auto) 0.1, Basophils (%) (Auto) 1.0, Sodium Level 141, Potassium Level 4.2, Chloride Level 107, Carbon Dioxide Level 30, Anion Gap 5, Blood Urea Nitrogen 21H, Creatinine 0.9, Estimat Glomerular Filtration Rate > 60, Glucose Level 112H, Calcium Level 8.8, Phosphorus Level 1.7L, Magnesium Level 2.0, Troponin I 1.226H Height (Feet): 5 Height (Inches): 4.00 Weight (Pounds): 125 Objective General Appearance: WD/WN, no apparent distress HEENT: normocephalic, atraumatic Neck: non-tender Respiratory/Chest: expiratory wheezing Cardiovascular/Chest: normal peripheral pulses, normal rate, regular rhythm Abdomen: non tender, soft, no organomegaly Neurologic: alert, oriented x 3 Michael Swanson M.D. Feb 17, 2020 11:07
--- NOTE | 2020-02-17 11:38 | General Progress Note ---
Assessment/Plan Status: stable Assessment/Plan: Ms. Lenz is a 69 year old female current smoker, HTN, presenting with COPD exacerbation, also found to have NSTEMI. A-#Acute hypoxic respiratory failure, POA #COPD Exacerbation #Asthma exacerbation #Suspected CAP #Current smoker #Respiratory alkalosis - on ABG -cont prednisone -pulmonology following -ID following -duonebs ATC -Continue ceftriaxone/azithro (02/12- ) -CXR without definitive infiltrate -Smoking cessation provided #Acute UTI -On ceftriaxone #Hypernatremia - resolved -Nephrology following -s/p 1/2 NS per nephro -Trend BMP #NSTEMI -Cardiology following -heparin gtt stopped after 48 hours -Will need stress test -Trop peak 1.086 -continue ASA 81 -Lipitor 10 -Stress test planned for today #Severe systolic heart failure, chronic #Mild pulmonary hypertension #Moderate mitral regurgitation #Mild aortic regurgitation -Lisinopril/coreg for heart failure -Stress testing today -Nitro prn chest pain -Will need life vest for primary prevention SCA arrhythmias Time spent on encounter: 35 mins, >50% on pt counseling, coordination of care. Time of note doesn't reflect time of encounter. Subjective Date patient seen: Feb 17, 2020 Time patient seen: 10:22 ROS Limited/Unobtainable: No Constitutional: Denies: chills, fever Cardiovascular: Denies: chest pain Respiratory: Reports: cough; Denies: shortness of breath Gastrointestinal/Abdominal: Denies: abdomen distended Genitourinary: Denies: burning Allergies: Coded Allergies: No Known Allergies (Unverified , 01/22/15) Subjective Follow up for acute hypoxic resp failure, pulm edema, asthma exacerbation No new complaints. Objective Last 24 Hour Vital Signs Date Time Temp Pulse Resp B/P (MAP) Pulse Ox O2 Delivery O2 Flow Rate FiO2 02/17/20 09:00 Nasal Cannula 2.0 02/17/20 08:45 95 Nasal Cannula 2.0 28 02/17/20 08:23 98 123/60 02/17/20 08:23 123/60 02/17/20 08:00 100 02/17/20 08:00 96.4 98 18 123/60 (81) 95 02/17/20 08:00 2.0 02/17/20 04:00 2.0 02/17/20 04:00 98.1 110 20 149/94 (112) 97 02/17/20 04:00 90 02/17/20 00:00 2.0 02/17/20 00:00 89 02/16/20 21:00 Nasal Cannula 2.0 02/16/20 20:56 116 145/97 02/16/20 20:28 96 Nasal Cannula 2.0 28 02/16/20 20:00 2.0 02/16/20 20:00 108 02/16/20 20:00 98.1 82 19 119/71 (87) 97 02/16/20 16:00 98.2 106 19 137/88 (104) 97 02/16/20 16:00 2.0 02/16/20 16:00 120 02/16/20 12:00 2.0 02/16/20 12:00 98.6 109 19 133/81 (98) 97 02/16/20 12:00 125 Intake and Output 02/16/20 02/17/20 19:00 07:00 Intake Total 350 ml Balance 350 ml Intake Oral 350 ml # Voids 2 # Bowel Movements 1 1 Laboratory Tests 02/17/20 05:52: White Blood Count 12.8H, Red Blood Count 3.74L, Hemoglobin 11.6L, Hematocrit 34.1L, Mean Corpuscular Volume 91, Mean Corpuscular Hemoglobin 31.1H, Mean Corpuscular Hemoglobin Concent 34.1, Red Cell Distribution Width 12.9, Platelet Count 123L, Mean Platelet Volume 9.3, Neutrophils (%) (Auto) 73.2, Lymphocytes ( %) (Auto) 19.8L, Monocytes (%) (Auto) 5.9, Eosinophils (%) (Auto) 0.1, Basophils (%) (Auto) 1.0, Sodium Level 141, Potassium Level 4.2, Chloride Level 107, Carbon Dioxide Level 30, Anion Gap 5, Blood Urea Nitrogen 21H, Creatinine 0.9, Estimat Glomerular Filtration Rate > 60, Glucose Level 112H, Calcium Level 8.8, Phosphorus Level 1.7L, Magnesium Level 2.0, Troponin I 1.226H Height (Feet): 5 Height (Inches): 4.00 Weight (Pounds): 125 General Appearance: no apparent distress, alert Neck: normal alignment, normal inspection Cardiovascular: normal rate Respiratory/Chest: lungs clear, normal breath sounds, no respiratory distress Abdomen: non tender, soft Luis Eduardo Taylor MD Feb 17, 2020 11:38
[2020-02-17 12:00] VITALS: BP 108/66
--- NOTE | 2020-02-17 13:08 | Surgery Progress Note ---
Surgery Progress Note Subjective Additional Comments Patient seen and examined bedside. No acute events. States she feels very well denies any nausea vomiting fever chills. States abdominal pain is completely subsided. Leukocytosis likely from steroids. Troponin noted discussed with cardiology stress test Objective Last 24 Hour Vital Signs Date Time Temp Pulse Resp B/P (MAP) Pulse Ox O2 Delivery O2 Flow Rate FiO2 02/17/20 12:00 1.0 02/17/20 12:00 98.4 91 18 108/66 (80) 96 02/17/20 12:00 89 02/17/20 09:00 Nasal Cannula 2.0 02/17/20 08:45 95 Nasal Cannula 2.0 28 02/17/20 08:23 98 123/60 02/17/20 08:23 123/60 02/17/20 08:00 100 02/17/20 08:00 96.4 98 18 123/60 (81) 95 02/17/20 08:00 2.0 02/17/20 04:00 2.0 02/17/20 04:00 98.1 110 20 149/94 (112) 97 02/17/20 04:00 90 02/17/20 00:00 2.0 02/17/20 00:00 89 02/16/20 21:00 Nasal Cannula 2.0 02/16/20 20:56 116 145/97 02/16/20 20:28 96 Nasal Cannula 2.0 28 02/16/20 20:00 2.0 02/16/20 20:00 108 02/16/20 20:00 98.1 82 19 119/71 (87) 97 02/16/20 16:00 98.2 106 19 137/88 (104) 97 02/16/20 16:00 2.0 02/16/20 16:00 120 I&O Intake and Output 02/16/20 02/17/20 19:00 07:00 Intake Total 350 ml Balance 350 ml Intake Oral 350 ml # Voids 2 # Bowel Movements 1 1 Cardiovascular: RSR Respiratory: clear Abdomen: soft, non-tender, present bowel sounds, non-distended Extremities: no edema, no tenderness, no cyanosis Laboratory Tests Test 02/17/20 05:52 White Blood Count 12.8 K/UL (4.8-10.8) H Red Blood Count 3.74 M/UL (4.20-5.40) L Hemoglobin 11.6 G/DL (12.0-16.0) L Hematocrit 34.1 % (37.0-47.0) L Mean Corpuscular Volume 91 FL (80-99) Mean Corpuscular Hemoglobin 31.1 PG (27.0-31.0) H Mean Corpuscular Hemoglobin Concent 34.1 G/DL (32.0-36.0) Red Cell Distribution Width 12.9 % (11.6-14.8) Platelet Count 123 K/UL (150-450) L Mean Platelet Volume 9.3 FL (6.5-10.1) Neutrophils (%) (Auto) 73.2 % (45.0-75.0) Lymphocytes (%) (Auto) 19.8 % (20.0-45.0) L Monocytes (%) (Auto) 5.9 % (1.0-10.0) Eosinophils (%) (Auto) 0.1 % (0.0-3.0) Basophils (%) (Auto) 1.0 % (0.0-2.0) Sodium Level 141 MMOL/L (136-145) Potassium Level 4.2 MMOL/L (3.5-5.1) Chloride Level 107 MMOL/L (98-107) Carbon Dioxide Level 30 MMOL/L (21-32) Anion Gap 5 mmol/L (5-15) Blood Urea Nitrogen 21 mg/dL (7-18) H Creatinine 0.9 MG/DL (0.55-1.30) Estimat Glomerular Filtration Rate > 60 mL/min (>60) Glucose Level 112 MG/DL (74-106) H Calcium Level 8.8 MG/DL (8.5-10.1) Phosphorus Level 1.7 MG/DL (2.5-4.9) L Magnesium Level 2.0 MG/DL (1.8-2.4) Troponin I 1.226 ng/mL (0.000-0.056) Plan Problems: (1) Lactic acidosis Assessment & Plan: Lactic acidosis secondary to likely dehydration as patient has not been taking much oral intake as she feels discomfort in her chest and throat as she eats. States she is feeling little bit better now unable to take in a little bit more liquids. Currently no nausea vomiting fever chills. Passing flatus. Bowel movement. IV hydration. Unlikely ischemic bowel given examination. Hold on imaging. (2) Abdominal pain Assessment & Plan: Patient with abdominal discomfort and severe lactic acidosis concerning for possible bowel etiology. On examination abdomen soft nontender nondistended mild discomfort with deep palpation but unlikely to have low flow. Okay for diet. Will follow with exam. Trend labs. Abdominal pain has resolved. Able to tolerate diet now. Passing flatus and having bowel movements. States she has no cramping or other abnormality in the abdomen. She is tolerating diet well. Continue with diet as tolerated for now. Will monitor Comparison: none Findings: Bowel gas pattern is unremarkable. No masses or unusual calcifications. The bones are unremarkable Impression: Negative (3) Dysphasia Assessment & Plan: Patient states discomfort with eating feels it in the throat and chest. States resolving and improved with liquids at this time. Continue with diet. Monitor closely (4) Respiratory distress Assessment & Plan: Study limited to single portable AP chest radiograph. At least mild cardiomegaly. There is tortuosity/ectasia of the thoracic aorta. Overlying artifact in the right costophrenic angle region. Negative for focal consolidation, pneumothorax or pleural fluid collections. Recommend upright PA and lateral views of the chest when clinically feasible. Aftab Elmore Feb 17, 2020 13:07
[2020-02-17] MEDS: Phospha 250 Neutral tab ORAL SCH ×2 (13:15→17:07)
[2020-02-17 16:00] VITALS: BP 130/77
[2020-02-17 20:00] VITALS: BP 143/86
[2020-02-17] MEDS: Carvedilol 6.25mg Tab ORAL SCH (22:19)
[2020-02-17] MEDS: cefTRIAXone 1 GM in D5W 55 ML IVPB SCH (22:20)
[2020-02-18] VITALS: BP 138/81
[2020-02-18 04:00] VITALS: BP 139/90
[2020-02-18 08:00] VITALS: BP 126/74
[2020-02-18] MEDS: Phospha 250 Neutral tab ORAL SCH (08:52)
[2020-02-18] MEDS: Ascorbic Acid 500mg tab ORAL SCH (08:52)
[2020-02-18] MEDS: Heparin 5000 units/ml inj SUBQ SCH ×2 (08:53→21:47)
[2020-02-18] MEDS: Furosemide 40mg tab ORAL SCH (08:53)
[2020-02-18] MEDS: Aspirin Baby 81mg ORAL SCH (08:53)
--- NOTE | 2020-02-18 10:15 | Pulmonology Progress Note ---
Assessment/Plan Assessment/Plan IMPRESSION: 1. Pulmonary edema. 2. Exacerbation of COPD. Doubt active pneumonia. DISCUSSION: Continue antibiotics and steroids. DVT prophylaxis. Continue medications. Cardiology following. Reviewed 2D echo. I will follow carefully. Nasal O2 Pulmonary hygiene Ankit Wood M.D. Subjective Interval Events: None new Constitutional: Reports: no symptoms HEENT: Repors: no symptoms Respiratory: Reports: no symptoms Cardiovascular: Reports: no symptoms Gastrointestinal/Abdominal: Reports: no symptoms Allergies: Coded Allergies: No Known Allergies (Unverified , 01/22/15) Objective Last 24 Hour Vital Signs Date Time Temp Pulse Resp B/P (MAP) Pulse Ox O2 Delivery O2 Flow Rate FiO2 02/18/20 08:00 96.6 91 20 126/74 (91) 94 02/18/20 04:00 96.6 97 20 139/90 (106) 96 02/18/20 04:00 97 02/18/20 00:00 98.1 100 20 138/81 (100) 95 02/18/20 00:00 103 02/17/20 22:19 103 146/83 02/17/20 21:00 Room Air 02/17/20 20:00 107 02/17/20 20:00 98.1 103 19 143/86 (105) 97 02/17/20 16:00 102 02/17/20 16:00 98.2 102 18 130/77 (94) 100 02/17/20 15:01 Room Air 02/17/20 12:00 1.0 02/17/20 12:00 98.4 91 18 108/66 (80) 96 02/17/20 12:00 89 Intake and Output 02/17/20 02/18/20 19:00 07:00 Intake Total 490 ml 295 ml Balance 490 ml 295 ml Intake Oral 490 ml 240 ml IV Total 55 ml # Voids 3 2 # Bowel Movements 2 3 Respiratory/Chest: chest wall non-tender Cardiovascular: normal peripheral pulses Abdomen: normal bowel sounds Laboratory Tests 02/17/20 18:00: Troponin I 0.787H 02/18/20 04:20: Troponin I 0.684H Current Medications Medications (Trade) Dose Ordered Sig/Samanta Route PRN Reason Start Time Stop Time Status Last Admin Dose Admin Ascorbic Acid (Vitamin C) 500 mg DAILY ORAL 02/16/20 09:00 03/15/20 08:59 02/18/20 08:52 Aspirin (ASA) 81 mg DAILY ORAL 02/16/20 09:00 03/30/20 08:59 02/18/20 08:53 Atorvastatin Calcium (Lipitor) 10 mg BEDTIME ORAL 02/15/20 21:00 03/15/20 20:59 02/17/20 22:19 Carvedilol (Coreg) 6.25 mg EVERY 12 HOURS ORAL 02/17/20 21:00 03/17/20 08:59 02/17/20 22:19 Ceftriaxone Sodium 1 gm/ Dextrose 55 ml @ 110 mls/hr Q24H IVPB 02/15/20 22:00 02/21/20 21:59 02/17/20 22:20 Furosemide (Lasix) 40 mg DAILY ORAL 02/18/20 09:00 03/19/20 08:59 02/18/20 08:53 Heparin Sodium (Porcine) (Heparin 5000 units/ml) 5,000 units EVERY 12 HOURS SUBQ 02/15/20 21:00 03/31/20 20:59 Lisinopril (PriniviL) 20 mg DAILY ORAL 02/18/20 09:00 03/15/20 08:59 Phosphorus (Phospha 250 Neutral) 500 mg THREE TIMES A DAY ORAL 02/17/20 13:00 02/18/20 12:59 02/18/20 08:52 Regadenoson (Lexiscan) 0.4 mg ONCE PRN IV CARDIOLOGY 02/17/20 10:20 02/19/20 23:59 Ankit Wood MD Feb 18, 2020 10:15
--- NOTE | 2020-02-18 11:08 | Nephrology Progress Note ---
Assessment/Plan Plan #Hypernatremia #Sepsis #lactic acidosis #Pneumonia/COPD exacerbation #Tropnemia #hyperglycemia - pulm consulted - ID consulted - Bipap prn - abx - steroid - trend trop - cardiology consult - continue lisinopril 20mg - continue coreg 6.25mg BID - lasix 40mg daily - stress test on saturday - monitor BMP - replete lytes - trend lactic acid- improved Subjective Subjective Breathing stable EF low continue coreg and lisinopril dose on lasix 40mg daily stress test ordered for saturday Objective Objective Last 24 Hour Vital Signs Date Time Temp Pulse Resp B/P (MAP) Pulse Ox O2 Delivery O2 Flow Rate FiO2 02/18/20 08:18 96 Nasal Cannula 2.0 28 02/18/20 08:00 96.6 91 20 126/74 (91) 94 02/18/20 04:00 96.6 97 20 139/90 (106) 96 02/18/20 04:00 97 02/18/20 00:00 98.1 100 20 138/81 (100) 95 02/18/20 00:00 103 02/17/20 22:19 103 146/83 02/17/20 21:00 Room Air 02/17/20 20:00 107 02/17/20 20:00 98.1 103 19 143/86 (105) 97 02/17/20 16:00 102 02/17/20 16:00 98.2 102 18 130/77 (94) 100 02/17/20 15:01 Room Air 02/17/20 12:00 1.0 02/17/20 12:00 98.4 91 18 108/66 (80) 96 02/17/20 12:00 89 Intake and Output 02/17/20 02/18/20 19:00 07:00 Intake Total 490 ml 295 ml Balance 490 ml 295 ml Intake Oral 490 ml 240 ml IV Total 55 ml # Voids 3 2 # Bowel Movements 2 3 Laboratory Tests 02/17/20 18:00: Troponin I 0.787H 02/18/20 04:20: Troponin I 0.684H Height (Feet): 5 Height (Inches): 4.00 Weight (Pounds): 125 Objective General Appearance: WD/WN, no apparent distress HEENT: normocephalic, atraumatic Neck: non-tender Respiratory/Chest: expiratory wheezing Cardiovascular/Chest: normal peripheral pulses, normal rate, regular rhythm Abdomen: non tender, soft, no organomegaly Neurologic: alert, oriented x 3 Michael Swanson M.D. Feb 18, 2020 11:07
--- NOTE | 2020-02-18 11:35 | Cardiology Progress Note ---
Assessment/Plan Status: stable Assessment/Plan Assessment/Plan Ms. Lenz is a 69 year old female current smoker, HTN, presenting with COPD exacerbation, also found to have NSTEMI. -Serial EKG/Troponin -> down trended -Echocardiogram reviewed LVEF 15-20% -Hold heparin -Aspirin -Statin -Continue Lisinopril/coreg for heart failure -Stress test prior to d/c - ordered for Saturday -Nitro prn chest pain -Will need life vest for primary prevention SCA arrhythmias - ordered -Repeat echo in 3 months Subjective Cardiovascular: Reports: no symptoms Respiratory: Reports: no symptoms Genitourinary: Reports: no symptoms Subjective No acute events, no chest pain. TTE LVEF 15-20% moderate MR PAP pressure 50 Life vest ordered Troponin down trending No chest pain Stress test ordered for saturday Objective Last 24 Hour Vital Signs Date Time Temp Pulse Resp B/P (MAP) Pulse Ox O2 Delivery O2 Flow Rate FiO2 02/18/20 08:18 96 Nasal Cannula 2.0 28 02/18/20 08:00 96.6 91 20 126/74 (91) 94 02/18/20 04:00 96.6 97 20 139/90 (106) 96 02/18/20 04:00 97 02/18/20 00:00 98.1 100 20 138/81 (100) 95 02/18/20 00:00 103 02/17/20 22:19 103 146/83 02/17/20 21:00 Room Air 02/17/20 20:00 107 02/17/20 20:00 98.1 103 19 143/86 (105) 97 02/17/20 16:00 102 02/17/20 16:00 98.2 102 18 130/77 (94) 100 02/17/20 15:01 Room Air 02/17/20 12:00 1.0 02/17/20 12:00 98.4 91 18 108/66 (80) 96 02/17/20 12:00 89 General Appearance: no apparent distress, alert EENT: PERRL/EOMI, normal ENT inspection, TMs normal, pharynx normal Neck: non-tender, normal alignment, normal inspection, no JVD Rhythm: NSR Cardiovascular: normal peripheral pulses, normal rate, regular rhythm Respiratory/Chest: chest wall non-tender, lungs clear, normal breath sounds Abdomen: normal bowel sounds, non tender Extremities: normal range of motion, non-tender, normal inspection, no calf tenderness, no swelling 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
--- NOTE | 2020-02-18 11:56 | Surgery Progress Note ---
Surgery Progress Note Subjective Additional Comments Patient seen and examined bedside. No acute events. Troponin trending down. Leukocytosis. Otherwise comfortable and stable. No nausea vomiting fever chills. Objective Last 24 Hour Vital Signs Date Time Temp Pulse Resp B/P (MAP) Pulse Ox O2 Delivery O2 Flow Rate FiO2 02/18/20 09:00 Room Air 02/18/20 08:18 96 Nasal Cannula 2.0 28 02/18/20 08:00 96.6 91 20 126/74 (91) 94 02/18/20 04:00 96.6 97 20 139/90 (106) 96 02/18/20 04:00 97 02/18/20 00:00 98.1 100 20 138/81 (100) 95 02/18/20 00:00 103 02/17/20 22:19 103 146/83 02/17/20 21:00 Room Air 02/17/20 20:00 107 02/17/20 20:00 98.1 103 19 143/86 (105) 97 02/17/20 16:00 102 02/17/20 16:00 98.2 102 18 130/77 (94) 100 02/17/20 15:01 Room Air 02/17/20 12:00 1.0 02/17/20 12:00 98.4 91 18 108/66 (80) 96 02/17/20 12:00 89 I&O Intake and Output 02/17/20 02/18/20 19:00 07:00 Intake Total 490 ml 295 ml Balance 490 ml 295 ml Intake Oral 490 ml 240 ml IV Total 55 ml # Voids 3 2 # Bowel Movements 2 3 Dressing: other Wound: other Drains: none Cardiovascular: RSR Respiratory: clear Abdomen: soft, non-tender, present bowel sounds Extremities: no tenderness, no cyanosis Laboratory Tests Test 02/17/20 18:00 02/18/20 04:20 Troponin I 0.787 ng/mL (0.000-0.056) 0.684 ng/mL (0.000-0.056) Plan Problems: (1) Lactic acidosis Assessment & Plan: Lactic acidosis secondary to likely dehydration as patient has not been taking much oral intake as she feels discomfort in her chest and throat as she eats. States she is feeling little bit better now unable to take in a little bit more liquids. Currently no nausea vomiting fever chills. Passing flatus. Bowel movement. IV hydration. Unlikely ischemic bowel given examination. Hold on imaging. (2) Abdominal pain Assessment & Plan: Patient with abdominal discomfort and severe lactic acidosis concerning for possible bowel etiology. On examination abdomen soft nontender nondistended mild discomfort with deep palpation but unlikely to have low flow. Okay for diet. Will follow with exam. Trend labs. Abdominal pain has resolved. Able to tolerate diet now. Passing flatus and having bowel movements. States she has no cramping or other abnormality in the abdomen. She is tolerating diet well. Continue with diet as tolerated for now. Will monitor Comparison: none Findings: Bowel gas pattern is unremarkable. No masses or unusual calcifications. The bones are unremarkable Impression: Negative (3) Dysphasia Assessment & Plan: Patient states discomfort with eating feels it in the throat and chest. States resolving and improved with liquids at this time. Continue with diet. Monitor closely (4) Respiratory distress Assessment & Plan: Study limited to single portable AP chest radiograph. At least mild cardiomegaly. There is tortuosity/ectasia of the thoracic aorta. Overlying artifact in the right costophrenic angle region. Negative for focal consolidation, pneumothorax or pleural fluid collections. Recommend upright PA and lateral views of the chest when clinically feasible. Aftab Elmore Feb 18, 2020 11:56
[2020-02-18 12:00] VITALS: BP 104/78
[2020-02-18] MEDS: Carvedilol 6.25mg Tab ORAL SCH ×2 (14:07→21:55)
[2020-02-18] MEDS: Lisinopril 20mg tab ORAL SCH (14:07)
--- NOTE | 2020-02-18 14:28 | General Progress Note ---
Assessment/Plan Status: stable Assessment/Plan: Ms. Lenz is a 69 year old female current smoker, HTN, presenting with COPD exacerbation, also found to have NSTEMI. A-#Acute hypoxic respiratory failure, POA #COPD Exacerbation #Asthma exacerbation #Suspected CAP #Current smoker #Respiratory alkalosis - on ABG -cont prednisone -pulmonology following -ID following -duonebs ATC -Continue ceftriaxone/azithro (02/12- ) -CXR without definitive infiltrate -Smoking cessation provided #Acute UTI -On ceftriaxone #Hypernatremia - resolved -Nephrology following -s/p 1/2 NS per nephro -Trend BMP #NSTEMI -Cardiology following -heparin gtt stopped after 48 hours -Will need stress test -Trop peak 1.086 -continue ASA 81 -Lipitor 10 -Pending stress test #Severe systolic heart failure, chronic #Mild pulmonary hypertension #Moderate mitral regurgitation #Mild aortic regurgitation -Lisinopril/coreg for heart failure -Lasix -Stress pending -Nitro prn chest pain -Life vest pending prior to discharge Time spent on encounter: 35 mins, >50% on pt counseling, coordination of care. Time of note doesn't reflect time of encounter. Subjective Date patient seen: Feb 18, 2020 Time patient seen: 08:38 ROS Limited/Unobtainable: No Constitutional: Denies: chills, fever Cardiovascular: Denies: chest pain, irregular heart rate, palpitations Respiratory: Denies: cough Allergies: Coded Allergies: No Known Allergies (Unverified , 01/22/15) Subjective Follow up for acute hypoxic resp failure, pulm edema, asthma exacerbation No new complaints, awaiting stress test. Objective Last 24 Hour Vital Signs Date Time Temp Pulse Resp B/P (MAP) Pulse Ox O2 Delivery O2 Flow Rate FiO2 02/18/20 14:07 104/78 02/18/20 14:07 88 104/78 02/18/20 12:00 97.3 88 20 104/78 (87) 98 02/18/20 09:00 Room Air 02/18/20 08:18 96 Nasal Cannula 2.0 28 02/18/20 08:00 96.6 91 20 126/74 (91) 94 02/18/20 04:00 96.6 97 20 139/90 (106) 96 02/18/20 04:00 97 02/18/20 00:00 98.1 100 20 138/81 (100) 95 02/18/20 00:00 103 02/17/20 22:19 103 146/83 02/17/20 21:00 Room Air 02/17/20 20:00 107 02/17/20 20:00 98.1 103 19 143/86 (105) 97 02/17/20 16:00 102 02/17/20 16:00 98.2 102 18 130/77 (94) 100 02/17/20 15:01 Room Air Intake and Output 02/17/20 02/18/20 19:00 07:00 Intake Total 490 ml 295 ml Balance 490 ml 295 ml Intake Oral 490 ml 240 ml IV Total 55 ml # Voids 3 2 # Bowel Movements 2 3 Laboratory Tests 02/17/20 18:00: Troponin I 0.787H 02/18/20 04:20: Troponin I 0.684H Height (Feet): 5 Height (Inches): 4.00 Weight (Pounds): 125 General Appearance: no apparent distress, alert Neck: normal alignment, supple Cardiovascular: normal rate, regular rhythm Respiratory/Chest: lungs clear, normal breath sounds Abdomen: non tender, soft Luis Eduardo Taylor MD Feb 18, 2020 14:28
[2020-02-18 16:00] VITALS: BP 141/79
--- NOTE | 2020-02-18 19:53 | Infectious Diseases Prog Note ---
Assessment/Plan Assessment/Plan ASSESSMENT AND PLAN: 1. e.coli uti, uri/bronchitis, chest x-ray - negative for pna - ceftriaxone - day # 5 abx - clinically stable - mild leukocytosis noted - monitor cbc, surveillance ua - monitor labs 2. Chronic obstructive pulmonary disease exacerbation. The patient is on steroids and continue breathing treatments. 3. History of TIA. 4. COPD. 5. CVA. 6. Weakness on right side. 7. Embolic cva 8. History of dysphagia also. 9. Hypertension. 10. Hypernatremia. 11. Non-STEMI. 12. CAD. 13. No known drug allergies. 14. Social history is negative. 15. Family history is noncontributory. 16. MAR is noted. 17. Case discussed with RN. 18. Continue treatment per primary consultants. 19. Orders were noted and entered. Subjective Constitutional: Denies: fever HEENT: Denies: congestion Respiratory: Denies: shortness of breath Cardiovascular: Denies: chest pain Gastrointestinal/Abdominal: Denies: nausea, vomiting, diarrhea Genitourinary: Reports: other Neurologic: Denies: numbness Psychiatric: Denies: depression Skin: Denies: rash Hematologic: Denies: bleeding Musculoskeletal: Denies: pain Allergies: Coded Allergies: No Known Allergies (Unverified , 01/22/15) Objective Vital Signs Last 24 Hour Vital Signs Date Time Temp Pulse Resp B/P (MAP) Pulse Ox O2 Delivery O2 Flow Rate FiO2 02/18/20 16:00 97.7 97 18 141/79 (99) 96 02/18/20 16:00 100 02/18/20 14:07 104/78 02/18/20 14:07 88 104/78 02/18/20 12:00 95 02/18/20 12:00 97.3 88 20 104/78 (87) 98 02/18/20 09:00 Room Air 02/18/20 08:18 96 Nasal Cannula 2.0 28 02/18/20 08:00 101 02/18/20 08:00 96.6 91 20 126/74 (91) 94 02/18/20 04:00 96.6 97 20 139/90 (106) 96 02/18/20 04:00 97 02/18/20 00:00 98.1 100 20 138/81 (100) 95 02/18/20 00:00 103 02/17/20 22:19 103 146/83 02/17/20 21:00 Room Air 02/17/20 20:00 107 02/17/20 20:00 98.1 103 19 143/86 (105) 97 Height (Feet): 5 Height (Inches): 4.00 Weight (Pounds): 125 General Appearance: no acute distress HEENT: normocephalic, atraumatic, anicteric, mucous membranes moist Respiratory/Chest: lungs clear, normal breath sounds, no respiratory distress, no accessory muscle use Cardiovascular: normal rate, regular rhythm, no gallop/murmur, no JVD Abdomen: normal bowel sounds, soft, non tender, no organomegaly, non distended Genitourinary: other - no rea Extremities: no cyanosis Skin: no rash 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 Indication: Shortness of breath Technique: One view of the chest Comparison: 02/13/2020 Findings: The heart is enlarged. The lungs and pleural spaces are clear. The aorta is tortuous and calcified. No significant interim change Impression: Unchanged, over one day, findings as above.. Cardiomegaly. No acute process Microbiology Date/Time Source Procedure Growth Status 02/13/20 21:40 Blood Blood Culture - Preliminary NO GROWTH AFTER 4 DAYS Resulted 02/13/20 22:10 Nasal Nares - Final Complete 02/13/20 22:10 Nasal Nares - Final Complete 02/14/20 17:36 Stool Clostridium difficile Toxin Assay - Final Complete 02/13/20 23:01 Urine,Clean Catch Urine Culture - Final Escherichia Coli Complete Labs Test 02/16/20 09:50 02/17/20 05:52 02/17/20 18:00 02/18/20 04:20 Pro-B-Type Natriuretic Peptide 49730 pg/mL (0-125) White Blood Count 12.8 K/UL (4.8-10.8) Red Blood Count 3.74 M/UL (4.20-5.40) Hemoglobin 11.6 G/DL (12.0-16.0) Hematocrit 34.1 % (37.0-47.0) Mean Corpuscular Volume 91 FL (80-99) Mean Corpuscular Hemoglobin 31.1 PG (27.0-31.0) Mean Corpuscular Hemoglobin Concent 34.1 G/DL (32.0-36.0) Red Cell Distribution Width 12.9 % (11.6-14.8) Platelet Count 123 K/UL (150-450) Mean Platelet Volume 9.3 FL (6.5-10.1) Neutrophils (%) (Auto) 73.2 % (45.0-75.0) Lymphocytes (%) (Auto) 19.8 % (20.0-45.0) Monocytes (%) (Auto) 5.9 % (1.0-10.0) Eosinophils (%) (Auto) 0.1 % (0.0-3.0) Basophils (%) (Auto) 1.0 % (0.0-2.0) Sodium Level 141 MMOL/L (136-145) Potassium Level 4.2 MMOL/L (3.5-5.1) Chloride Level 107 MMOL/L (98-107) Carbon Dioxide Level 30 MMOL/L (21-32) Anion Gap 5 mmol/L (5-15) Blood Urea Nitrogen 21 mg/dL (7-18) Creatinine 0.9 MG/DL (0.55-1.30) Estimat Glomerular Filtration Rate > 60 mL/min (>60) Glucose Level 112 MG/DL (74-106) Calcium Level 8.8 MG/DL (8.5-10.1) Phosphorus Level 1.7 MG/DL (2.5-4.9) Magnesium Level 2.0 MG/DL (1.8-2.4) Troponin I 1.226 ng/mL (0.000-0.056) 0.787 ng/mL (0.000-0.056) 0.684 ng/mL (0.000-0.056) Laboratory Tests Test 02/18/20 04:20 Troponin I 0.684 ng/mL (0.000-0.056) Current Medications Medications (Trade) Dose Ordered Sig/Samanta Route PRN Reason Start Time Stop Time Status Last Admin Dose Admin Ascorbic Acid (Vitamin C) 500 mg DAILY ORAL 02/16/20 09:00 03/15/20 08:59 02/18/20 08:52 Aspirin (ASA) 81 mg DAILY ORAL 02/16/20 09:00 03/30/20 08:59 02/18/20 08:53 Atorvastatin Calcium (Lipitor) 10 mg BEDTIME ORAL 02/15/20 21:00 03/15/20 20:59 02/17/20 22:19 Carvedilol (Coreg) 6.25 mg EVERY 12 HOURS ORAL 02/17/20 21:00 03/17/20 08:59 02/18/20 14:07 Ceftriaxone Sodium 1 gm/ Dextrose 55 ml @ 110 mls/hr Q24H IVPB 02/15/20 22:00 02/21/20 21:59 02/17/20 22:20 Furosemide (Lasix) 40 mg DAILY ORAL 02/18/20 09:00 03/19/20 08:59 02/18/20 08:53 Heparin Sodium (Porcine) (Heparin 5000 units/ml) 5,000 units EVERY 12 HOURS SUBQ 02/15/20 21:00 03/31/20 20:59 Lisinopril (PriniviL) 20 mg DAILY ORAL 02/18/20 09:00 03/15/20 08:59 02/18/20 14:07 Regadenoson (Lexiscan) 0.4 mg ONCE PRN IV CARDIOLOGY 02/17/20 10:20 02/19/20 23:59 Solomon Osei MD Feb 18, 2020 19:53
[2020-02-18 20:00] VITALS: BP 130/73
[2020-02-18] MEDS: cefTRIAXone 1 GM in D5W 55 ML IVPB SCH (21:55)
[2020-02-19] VITALS: BP 137/73
[2020-02-19 04:00] VITALS: BP 134/74
[2020-02-19 07:18] LABS: APPEARANCE,URINE CLEAR; BILIRUBIN, URINE NEGATIVE (NEGATIVE); GLUCOSE, URINE (UA) NEGATIVE (NEGATIVE); KETONES,URINE NEGATIVE (NEGATIVE); LEUKOCYTE ESTERASE ,URINE 3+ (NEGATIVE); NITRITE,URINE NEGATIVE (NEGATIVE); PH,URINE 5 (4.5-8.0); PROTEIN,URINE NEGATIVE (NEGATIVE); UROBILINOGEN,URINE 1 MG/DL (0.0-1.0)
[2020-02-19 07:35] LABS: COLOR,URINE YELLOW
[2020-02-19 07:50] LABS: ANION GAP 12 mmol/L (5-15); BLOOD UREA NITROGEN 25 mg/dL (7-18); CALCIUM 9.1 MG/DL (8.5-10.1); CARBON DIOXIDE 26 MMOL/L (21-32); CHLORIDE 106 MMOL/L (98-107); CREATININE 0.9 MG/DL (0.55-1.30); PHOSPHORUS 3.7 MG/DL (2.5-4.9); POTASSIUM 4.2 MMOL/L (3.5-5.1); SODIUM 144 MMOL/L (136-145)
[2020-02-19 09:00] VITALS: BP 140/76
[2020-02-19] MEDS: Carvedilol 6.25mg Tab ORAL SCH (09:00)
[2020-02-19] MEDS: Heparin 5000 units/ml inj SUBQ SCH (09:00)
[2020-02-19] MEDS: Lisinopril 20mg tab ORAL SCH (09:00)
--- NOTE | 2020-02-19 09:23 | Pulmonology Progress Note ---
Assessment/Plan Assessment/Plan IMPRESSION: 1. Pulmonary edema. 2. Exacerbation of COPD. Doubt active pneumonia. DISCUSSION: Continue antibiotics and steroids. DVT prophylaxis. Continue medications. Cardiology following. Reviewed 2D echo. I will follow carefully. Nasal O2 prn Pulmonary hygiene Ankit Wood M.D. Subjective Interval Events: Saturating well on RA Constitutional: Reports: no symptoms HEENT: Repors: no symptoms Respiratory: Reports: no symptoms Cardiovascular: Reports: no symptoms Gastrointestinal/Abdominal: Reports: no symptoms Allergies: Coded Allergies: No Known Allergies (Unverified , 01/22/15) Objective Last 24 Hour Vital Signs Date Time Temp Pulse Resp B/P (MAP) Pulse Ox O2 Delivery O2 Flow Rate FiO2 02/19/20 04:00 88 02/19/20 04:00 98.1 76 19 134/74 (94) 97 02/19/20 00:00 84 02/19/20 00:00 98.0 85 16 137/73 (94) 98 02/18/20 21:55 88 130/73 02/18/20 21:00 Room Air 02/18/20 20:00 86 02/18/20 20:00 97.5 88 16 130/73 (92) 98 02/18/20 16:00 97.7 97 18 141/79 (99) 96 02/18/20 16:00 100 02/18/20 14:07 104/78 02/18/20 14:07 88 104/78 02/18/20 12:00 95 02/18/20 12:00 97.3 88 20 104/78 (87) 98 Intake and Output 02/18/20 02/19/20 19:00 07:00 Intake Total 240 ml 175 ml Balance 240 ml 175 ml Intake Oral 240 ml 120 ml IV Total 55 ml # Voids 3 2 # Bowel Movements 2 1 General Appearance: no acute distress HEENT: normocephalic Respiratory/Chest: chest wall non-tender Cardiovascular: normal peripheral pulses Abdomen: normal bowel sounds Laboratory Tests 02/19/20 05:42: Sodium Level 144, Potassium Level 4.2, Chloride Level 106, Carbon Dioxide Level 26, Anion Gap 12, Blood Urea Nitrogen 25H, Creatinine 0.9, Estimat Glomerular Filtration Rate > 60, Glucose Level 110H, Calcium Level 9.1, Phosphorus Level 3.7, Magnesium Level 1.7L, Troponin I 0.594H 02/19/20 06:41: Urine Color Yellow, Urine Appearance Clear, Urine pH 5, Urine Specific [place] 1.020, Urine Protein Negative, Urine Glucose (UA) Negative, Urine Ketones Negative, Urine Blood Negative, Urine Nitrite Negative, Urine Bilirubin Negative , Urine Urobilinogen 1H, Urine Leukocyte Esterase 3+H, Urine RBC 0, Urine WBC 5- 10H, Urine Squamous Epithelial Cells ModerateH, Urine Bacteria Few Current Medications Medications (Trade) Dose Ordered Sig/[place] Route PRN Reason Start Time Stop Time Status Last Admin Dose Admin Ascorbic Acid (Vitamin C) 500 mg DAILY ORAL 02/16/20 09:00 03/15/20 08:59 02/18/20 08:52 Aspirin (ASA) 81 mg DAILY ORAL 02/16/20 09:00 03/30/20 08:59 02/18/20 08:53 Atorvastatin Calcium (Lipitor) 10 mg BEDTIME ORAL 02/15/20 21:00 03/15/20 20:59 02/18/20 21:55 Carvedilol (Coreg) 6.25 mg EVERY 12 HOURS ORAL 02/17/20 21:00 03/17/20 08:59 02/18/20 21:55 Ceftriaxone Sodium 1 gm/ Dextrose 55 ml @ 110 mls/hr Q24H IVPB 02/15/20 22:00 02/21/20 21:59 02/18/20 21:55 Furosemide (Lasix) 40 mg DAILY ORAL 02/18/20 09:00 03/19/20 08:59 02/18/20 08:53 Heparin Sodium (Porcine) (Heparin 5000 units/ml) 5,000 units EVERY 12 HOURS SUBQ 02/15/20 21:00 03/31/20 20:59 Lisinopril (PriniviL) 20 mg DAILY ORAL 02/18/20 09:00 03/15/20 08:59 02/18/20 14:07 Regadenoson (Lexiscan) 0.4 mg ONCE PRN IV CARDIOLOGY 02/17/20 10:20 02/19/20 23:59 Ankit Wood MD Feb 19, 2020 09:23
[2020-02-19] MEDS: Furosemide 40mg tab ORAL SCH (09:24)
[2020-02-19] MEDS: Ascorbic Acid 500mg tab ORAL SCH (09:24)
[2020-02-19] MEDS: Aspirin Baby 81mg ORAL SCH (09:25)
--- NOTE | 2020-02-19 10:14 | Cardiology Progress Note ---
Assessment/Plan Status: stable Assessment/Plan Assessment/Plan Ms. Lenz is a 69 year old female current smoker, HTN, presenting with COPD exacerbation, also found to have NSTEMI. -Serial EKG/Troponin -> down trended -Echocardiogram reviewed LVEF 15-20% -Hold heparin -Aspirin -Statin -Continue Lisinopril/coreg for heart failure -Stress test prior to d/c - ordered for Saturday -Nitro prn chest pain -Will need life vest for primary prevention SCA arrhythmias - ordered -Repeat echo in 3 months Subjective Cardiovascular: Reports: no symptoms Respiratory: Reports: no symptoms Gastrointestinal/Abdominal: Reports: no symptoms Genitourinary: Reports: no symptoms Subjective No acute events, no chest pain. TTE LVEF 15-20% moderate MR PAP pressure 50 Life vest ordered Troponin down trending No chest pain Stress test ordered Objective Last 24 Hour Vital Signs Date Time Temp Pulse Resp B/P (MAP) Pulse Ox O2 Delivery O2 Flow Rate FiO2 02/19/20 09:00 Room Air 02/19/20 04:00 88 02/19/20 04:00 98.1 76 19 134/74 (94) 97 02/19/20 00:00 84 02/19/20 00:00 98.0 85 16 137/73 (94) 98 02/18/20 21:55 88 130/73 02/18/20 21:00 Room Air 02/18/20 20:00 86 02/18/20 20:00 97.5 88 16 130/73 (92) 98 02/18/20 16:00 97.7 97 18 141/79 (99) 96 02/18/20 16:00 100 02/18/20 14:07 104/78 02/18/20 14:07 88 104/78 02/18/20 12:00 95 02/18/20 12:00 97.3 88 20 104/78 (87) 98 General Appearance: no apparent distress, alert EENT: PERRL/EOMI, normal ENT inspection, TMs normal, pharynx normal Neck: non-tender, normal alignment, supple, normal inspection, no JVD Rhythm: NSR Cardiovascular: normal peripheral pulses, normal rate, regular rhythm Respiratory/Chest: chest wall non-tender, lungs clear, normal breath sounds, no respiratory distress, no accessory muscle use Abdomen: normal bowel sounds, non tender, soft, no organomegaly, no mass Extremities: normal range of motion, non-tender, normal inspection, no calf tenderness, no swelling 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, no motor/sensory deficits Intake and Output 02/18/20 02/19/20 19:00 07:00 Intake Total 240 ml 175 ml Balance 240 ml 175 ml Intake Oral 240 ml 120 ml IV Total 55 ml # Voids 3 2 # Bowel Movements 2 1 Laboratory Tests Test 02/19/20 05:42 02/19/20 06:41 Sodium Level 144 MMOL/L (136-145) Potassium Level 4.2 MMOL/L (3.5-5.1) Chloride Level 106 MMOL/L (98-107) Carbon Dioxide Level 26 MMOL/L (21-32) Anion Gap 12 mmol/L (5-15) Blood Urea Nitrogen 25 mg/dL (7-18) H Creatinine 0.9 MG/DL (0.55-1.30) Estimat Glomerular Filtration Rate > 60 mL/min (>60) Glucose Level 110 MG/DL (74-106) H Calcium Level 9.1 MG/DL (8.5-10.1) Phosphorus Level 3.7 MG/DL (2.5-4.9) Magnesium Level 1.7 MG/DL (1.8-2.4) L Troponin I 0.594 ng/mL (0.000-0.056) Urine Color Yellow Urine Appearance Clear Urine pH 5 (4.5-8.0) Urine Specific [place] 1.020 (1.005-1.035) Urine Protein Negative (NEGATIVE) Urine Glucose (UA) Negative (NEGATIVE) Urine Ketones Negative (NEGATIVE) Urine Blood Negative (NEGATIVE) Urine Nitrite Negative (NEGATIVE) Urine Bilirubin Negative (NEGATIVE) Urine Urobilinogen 1 MG/DL (0.0-1.0) H Urine Leukocyte Esterase 3+ (NEGATIVE) H Urine RBC 0 /HPF (0 - 2) Urine WBC 5-10 /HPF (0 - 2) H Urine Squamous Epithelial Cells Moderate /LPF (NONE/OCC) H Urine Bacteria Few /HPF (NONE) Thierry Crawford MD Feb 19, 2020 10:14
--- NOTE | 2020-02-19 10:22 | Nephrology Progress Note ---
Assessment/Plan Plan #Hypernatremia #Sepsis #lactic acidosis #Pneumonia/COPD exacerbation #Tropnemia #hyperglycemia - pulm consulted - ID consulted - Bipap prn - abx - steroid - trend trop - cardiology consult - continue lisinopril 20mg - continue coreg 6.25mg BID - lasix 40mg daily - stress test pending today - monitor BMP - replete lytes - trend lactic acid- improved Subjective Subjective Breathing stable EF low continue coreg and lisinopril dose on lasix 40mg daily stress test pending today life vest ordered Objective Objective Last 24 Hour Vital Signs Date Time Temp Pulse Resp B/P (MAP) Pulse Ox O2 Delivery O2 Flow Rate FiO2 02/19/20 09:00 Room Air 02/19/20 04:00 88 02/19/20 04:00 98.1 76 19 134/74 (94) 97 02/19/20 00:00 84 02/19/20 00:00 98.0 85 16 137/73 (94) 98 02/18/20 21:55 88 130/73 02/18/20 21:00 Room Air 02/18/20 20:00 86 02/18/20 20:00 97.5 88 16 130/73 (92) 98 02/18/20 16:00 97.7 97 18 141/79 (99) 96 02/18/20 16:00 100 02/18/20 14:07 104/78 02/18/20 14:07 88 104/78 02/18/20 12:00 95 02/18/20 12:00 97.3 88 20 104/78 (87) 98 Intake and Output 02/18/20 02/19/20 19:00 07:00 Intake Total 240 ml 175 ml Balance 240 ml 175 ml Intake Oral 240 ml 120 ml IV Total 55 ml # Voids 3 2 # Bowel Movements 2 1 Laboratory Tests 02/19/20 05:42: Sodium Level 144, Potassium Level 4.2, Chloride Level 106, Carbon Dioxide Level 26, Anion Gap 12, Blood Urea Nitrogen 25H, Creatinine 0.9, Estimat Glomerular Filtration Rate > 60, Glucose Level 110H, Calcium Level 9.1, Phosphorus Level 3.7, Magnesium Level 1.7L, Troponin I 0.594H 02/19/20 06:41: Urine Color Yellow, Urine Appearance Clear, Urine pH 5, Urine Specific [place] 1.020, Urine Protein Negative, Urine Glucose (UA) Negative, Urine Ketones Negative, Urine Blood Negative, Urine Nitrite Negative, Urine Bilirubin Negative , Urine Urobilinogen 1H, Urine Leukocyte Esterase 3+H, Urine RBC 0, Urine WBC 5- 10H, Urine Squamous Epithelial Cells ModerateH, Urine Bacteria Few Height (Feet): 5 Height (Inches): 4.00 Weight (Pounds): 125 Objective General Appearance: WD/WN, no apparent distress HEENT: normocephalic, atraumatic Neck: non-tender Respiratory/Chest: expiratory wheezing Cardiovascular/Chest: normal peripheral pulses, normal rate, regular rhythm Abdomen: non tender, soft, no organomegaly Neurologic: alert, oriented x 3 Michael Swanson M.D. Feb 19, 2020 10:22
[2020-02-19 12:00] VITALS: BP 95/63
--- NOTE | 2020-02-19 15:02 | Diagnostic Imaging Report ---
Indications: Chest pain, elevated troponin Technique: Single day single isotope protocol utilized. Initially, resting images obtained using IV administration 9.7 millicuries 99M technetium Myoview. Subsequently, patient underwent lexiscan stress testing. See cardiology report for details. During Lexiscan infusion, IV administration 30.8 mCi 99 M technetium Myoview. SPECT and planar images obtained. SPECT images gated to 8 phases of the cardiac cycle were also obtained, and reformatted into cine images for evaluation of ejection fraction. A prone acquisition after physiologic stress is also obtained, in addition to the supine acquisition, due to attenuation artifacts seen on the supine images Comparison: none Findings: Per cardiology report, patient experienced dizziness during infusion. Per cardiology report, resting EKG demonstrates sinus rhythm with ST-T wave abnormalities in multiple leads. During infusion, ST depressions were not change. Imaging demonstrates a small apical defect on the supine stress images that is not evident on the probably a stress images, is likely artifactual. No definite fixed nor reversible poststress perfusion defects are demonstrated.. Calculated post stress ejection fraction 15%. There is diffuse severe hypokinesis Impression: Nonischemic clinical response to pharmacologic stress, per cardiology report Nonischemic electrocardiographic response to pharmacologic stress, per cardiology report No imaging findings to suggest ischemia, at level of stress achieved. Calculated post stress ejection fraction 15%. Evidence of diffuse hypokinesis. Possibility of nonischemic cardiomyopathy should be considered
--- NOTE | 2020-02-19 15:10 | Surgery Progress Note ---
Surgery Progress Note Subjective Additional Comments trop trending down no abd pain no n/v/f/c no signs of ischemic bowel Objective Last 24 Hour Vital Signs Date Time Temp Pulse Resp B/P (MAP) Pulse Ox O2 Delivery O2 Flow Rate FiO2 02/19/20 12:00 97.4 93 18 95/63 (74) 98 02/19/20 12:00 82 02/19/20 09:00 Room Air 02/19/20 09:00 140/76 02/19/20 09:00 90 140/76 02/19/20 09:00 98.1 90 18 140/76 (97) 96 02/19/20 08:00 86 02/19/20 04:00 88 02/19/20 04:00 98.1 76 19 134/74 (94) 97 02/19/20 00:00 84 02/19/20 00:00 98.0 85 16 137/73 (94) 98 02/18/20 21:55 88 130/73 02/18/20 21:00 Room Air 02/18/20 20:00 86 02/18/20 20:00 97.5 88 16 130/73 (92) 98 02/18/20 16:00 97.7 97 18 141/79 (99) 96 02/18/20 16:00 100 I&O Intake and Output 02/18/20 02/19/20 19:00 07:00 Intake Total 240 ml 175 ml Balance 240 ml 175 ml Intake Oral 240 ml 120 ml IV Total 55 ml # Voids 3 2 # Bowel Movements 2 1 Dressing: other Wound: other Drains: other Cardiovascular: RSR Respiratory: decreased breath sounds Abdomen: soft, non-tender, present bowel sounds, non-distended Extremities: no edema, no tenderness, no cyanosis Laboratory Tests Test 02/19/20 05:42 02/19/20 06:41 Sodium Level 144 MMOL/L (136-145) Potassium Level 4.2 MMOL/L (3.5-5.1) Chloride Level 106 MMOL/L (98-107) Carbon Dioxide Level 26 MMOL/L (21-32) Anion Gap 12 mmol/L (5-15) Blood Urea Nitrogen 25 mg/dL (7-18) H Creatinine 0.9 MG/DL (0.55-1.30) Estimat Glomerular Filtration Rate > 60 mL/min (>60) Glucose Level 110 MG/DL (74-106) H Calcium Level 9.1 MG/DL (8.5-10.1) Phosphorus Level 3.7 MG/DL (2.5-4.9) Magnesium Level 1.7 MG/DL (1.8-2.4) L Troponin I 0.594 ng/mL (0.000-0.056) Urine Color Yellow Urine Appearance Clear Urine pH 5 (4.5-8.0) Urine Specific [place] 1.020 (1.005-1.035) Urine Protein Negative (NEGATIVE) Urine Glucose (UA) Negative (NEGATIVE) Urine Ketones Negative (NEGATIVE) Urine Blood Negative (NEGATIVE) Urine Nitrite Negative (NEGATIVE) Urine Bilirubin Negative (NEGATIVE) Urine Urobilinogen 1 MG/DL (0.0-1.0) H Urine Leukocyte Esterase 3+ (NEGATIVE) H Urine RBC 0 /HPF (0 - 2) Urine WBC 5-10 /HPF (0 - 2) H Urine Squamous Epithelial Cells Moderate /LPF (NONE/OCC) H Urine Bacteria Few /HPF (NONE) Plan Problems: (1) Lactic acidosis Assessment & Plan: Lactic acidosis secondary to likely dehydration as patient has not been taking much oral intake as she feels discomfort in her chest and throat as she eats. States she is feeling little bit better now unable to take in a little bit more liquids. Currently no nausea vomiting fever chills. Passing flatus. Bowel movement. IV hydration. Unlikely ischemic bowel given examination. Hold on imaging. (2) Abdominal pain Assessment & Plan: Patient with abdominal discomfort and severe lactic acidosis concerning for possible bowel etiology. On examination abdomen soft nontender nondistended mild discomfort with deep palpation but unlikely to have low flow. Okay for diet. Will follow with exam. Trend labs. resolved Abdominal pain has resolved. Able to tolerate diet now. Passing flatus and having bowel movements. States she has no cramping or other abnormality in the abdomen. She is tolerating diet well. Continue with diet as tolerated for now. Will monitor Comparison: none Findings: Bowel gas pattern is unremarkable. No masses or unusual calcifications. The bones are unremarkable Impression: Negative (3) Dysphasia Assessment & Plan: Patient states discomfort with eating feels it in the throat and chest. States resolving and improved with liquids at this time. Continue with diet. Monitor closely (4) Respiratory distress Assessment & Plan: Study limited to single portable AP chest radiograph. At least mild cardiomegaly. There is tortuosity/ectasia of the thoracic aorta. Overlying artifact in the right costophrenic angle region. Negative for focal consolidation, pneumothorax or pleural fluid collections. Recommend upright PA and lateral views of the chest when clinically feasible. Per cardiology report, patient experienced dizziness during infusion. Per cardiology report, resting EKG demonstrates sinus rhythm with ST-T wave abnormalities in multiple leads. During infusion, ST depressions were not change. Imaging demonstrates a small apical defect on the supine stress images that is not evident on the probably a stress images, is likely artifactual. No definite fixed nor reversible poststress perfusion defects are demonstrated.. Calculated post stress ejection fraction 15%. There is diffuse severe hypokinesis Impression: Nonischemic clinical response to pharmacologic stress, per cardiology report Nonischemic electrocardiographic response to pharmacologic stress, per cardiology report No imaging findings to suggest ischemia, at level of stress achieved. Calculated post stress ejection fraction 15%. Evidence of diffuse hypokinesis. Possibility of nonischemic cardiomyopathy should be considered Aftab Elmore Feb 19, 2020 15:10
[2020-02-19 16:00] VITALS: BP 104/70
[2020-02-19] MEDS ORDERED: FUROSEMIDE40 MG ORAL (16:04)
[2020-02-19] MEDS ORDERED: COREG6.25 MG ORAL (16:04)
--- NOTE | 2020-02-19 16:14 | Discharge Summary ---
Discharge Summary Hospital Course Date of Admission Feb 13, 2020 at 22:09 Date of Discharge 02/19/20 Admitting Diagnosis SOB/resp distress-on BIPAP HPI Juneracheal Lenz is a 69 year old female who was admitted on Feb 13, 2020 at 22 :09 for Shortness Of Breath/Respiratory Distress On Bi-Pap Consultations Pulm, Cards, Renal Procedures Cardiac stress testing Hospital Course Ms. Lenz is a 69 year old female current smoker, HTN, presenting with COPD exacerbation, also found to have NSTEMI. She was admitted with acute hypoxic resp failure, COPD exacerbation, possible CAP, treated with systemic steroids, inhaled bronchodilators with improvement in resp status. Seen by Pulm for this. Also seen by Cardiology due to NSTEMI, had TTE showing severe global hypokinesis and EF 20%, no acute exacerbation of chronic systolic CHF. Stress testing was negative for acute ischemia. Patient was fitted with life vest which she will be discharged with. Will follow up with Drs. Swanson and Yvette as outpatient for ongoing care. She will be on Lisinopril, Coreg, Lasix, ASA, Lipitor. Smoking cessation strongly advised. Discharge Diagnoses #Acute hypoxic respiratory failure, POA #COPD Exacerbation #Asthma exacerbation #Suspected CAP #Current smoker #Respiratory alkalosis #Acute UTI #Hypernatremia #Severe systolic heart failure, chronic #Mild pulmonary hypertension #Moderate mitral regurgitation #Mild aortic regurgitation Time spent on discharge was 35 mins which coordination with RN, consulting MDs Time of note doesn't reflect time of encounter. Discharge Medications New Medications: Carvedilol (Coreg) 6.25 Mg Tablet 6.25 MG ORAL EVERY 12 HOURS for 30 Days, #60 TAB Furosemide* (Lasix*) 40 Mg Tablet 40 MG ORAL DAILY for 30 Days, #30 TAB Continued Medications: Ascorbic Acid* (Vitamin C*) 500 Mg Tablet 500 MG ORAL DAILY, #30 TAB 0 Refills Aspirin* (Aspirin*) 81 Mg Chew 81 MG ORAL DAILY, #30 TAB Atorvastatin Calcium* (Lipitor*) 10 Mg Tab 10 MG ORAL BEDTIME, #30 TAB Calcium Carbonate (Calcium) 500 Mg Tab.chew 1500 MG PO DAILY, TAB Lisinopril* (Zestril*) 10 Mg Tab 10 MG ORAL DAILY, #30 TAB Discharge Condition Upon Discharge: improving Discharge Vital Signs Last Vital Signs Date Time Temp Pulse Resp B/P (MAP) Pulse Ox O2 Delivery O2 Flow Rate FiO2 02/19/20 12:00 97.4 93 18 95/63 (74) 98 02/19/20 09:00 Room Air 02/18/20 08:18 2.0 28 Discharge Disposition Patient was discharged to home Discharge Diagnoses: (1) Acute hypoxemic respiratory failure (2) COPD exacerbation (3) NSTEMI (non-ST elevated myocardial infarction) (4) Chronic systolic (congestive) heart failure (5) Lactic acidosis Luis Eduardo Taylor MD Feb 19, 2020 16:14
[2020-02-19] MEDS ORDERED: NS 275ml ONE (18:25)
[2020-02-19] MEDS ORDERED: 1/2 NS 1000ml IV ONE (18:25)
[2020-02-19] MEDS ORDERED: Tubing IV Secondary IV ONE ×2 (18:25)
== END 2020-02-19 18:26 | disposition home or self-care (01) | DRG 871 ==
LOC: EDUNIT# 21:30 → EDBD 21:30 → EMR 21:40 → 2W 22:09 → EDBEDREQ 02-14 01:02 → 2W 02-14 01:36 → 2E 02-15 16:06
DX: A41.9 Sepsis, unspecified organism (principal); J18.9 Pneumonia, unspecified organism; I21.4 Non-ST elevation (NSTEMI) myocardial infarction; J96.01 Acute respiratory failure with hypoxia; J44.1 Chronic obstructive pulmonary disease with (acute) exacerbation; E87.0 Hyperosmolality and hypernatremia; N39.0 Urinary tract infection, site not specified; J44.0 Chronic obstructive pulmonary disease with (acute) lower respiratory infection; I50.22 Chronic systolic (congestive) heart failure; Z87.891 Personal history of nicotine dependence; F17.200 Nicotine dependence, unspecified, uncomplicated; B96.89 Other specified bacterial agents as the cause of diseases classified elsewhere; I27.20 Pulmonary hypertension, unspecified; I34.0 Nonrheumatic mitral (valve) insufficiency; I11.0 Hypertensive heart disease with heart failure; I35.1 Nonrheumatic aortic (valve) insufficiency; R73.9 Hyperglycemia, unspecified; Z86.73 Personal history of transient ischemic attack (TIA), and cerebral infarction without residual deficits; R13.10 Dysphagia, unspecified; I25.10 Atherosclerotic heart disease of native coronary artery without angina pectoris
CPT/HCPCS: 36415; 36600; 71045; 74018; 78452; 80048; 80053; 81003; 82150; 82803; 82962; 83605; 83690; 83735; 83880; 84100; 84484; 85007; 85025; 85651; 85730; 86140; 86710; 87040; 87070; 87086; 87181; 87205; 87324; 93005; 93017; 93306; 94660; 96361; 96365; 96367; 96375; 99291; C9399; J2785; J7030